=== PATIENT | female | born 1935 | race Caucasian/White ===

== ENCOUNTER 2017-09-25 17:48 | Inpatient (IN) | payer MEDICARE, OTHER, MEDICAID ==
--- NOTE | 2017-09-25 18:43 | ED Physician Chart ---
ED Chief Complaint/HPI - Patient Information Date Seen:: 09/25/17 Time Seen:: 17:55 Chief Complaint:: Weakness History of Present Illness:: onset x 2 days of generalized weakness with abnormal lab tests reported today; no report of trauma, H/As, S/T, neck pain, C/P, SOB, Abd. Pain, A/N/V/D/C, fever , chills, or urinary s/s Allergies:: Allergies Allergy/AdvReac Type Severity Reaction Status Date / Time No Known Allergies Allergy Verified 09/25/17 17:56 Vitals:: Vital Signs - 8 hr 09/25/17 17:57 Temp 98.8 F HR 74 RR 21 BP 145/97 O2 Sat % 97 Historian:: Patient, EMS, Family Member Review:: Nurse's Note Reviewed, Old Chart Reviewed, EMS run form Reviewed ED Review of Systems - Review of Systems General/Constitutional: No fever, No chills, No weight loss, No weakness, No diaphoresis, No edema, No loss of appetite Skin: No skin lesions, No rash, No bruising Head: No headache, No light-headedness Eyes: No loss of vision, No pain, No diplopia ENT: No earache, No nasal drainage, No sore throat, No tinnitus Neck: No neck pain, No swelling, No thyromegaly, No stiffness, No mass noted Cardio Vascular: No chest pain, No palpitations, No PND, No orthopnea, No edema Pulmonary: No SOB, No cough, No sputum, No wheezing GI: Nausea, Vomiting, Diarrhea, No pain, Melena, No hematochezia, No constipation, No hematemesis G/U: No dysuria, No frequency, No hematuria, No nacturia Structural Engineer: No vaginal discharge, No abnormal vaginal bleed, No contraction Musculoskeletal: No bone or joint pain, No back pain, No muscle pain Endocrine: No polyuria, No polydipsia Psychiatric: Prior psych history, Depression, Anxiety, No suicidal ideation, No homicidal ideation, No auditory hallucination, No visual hallucination Hematopoietic: No bruising, No lymphadenopathy Allergic/Immuno: No urticaria, No angioedema Neurological: No syncope, No focal symptoms, No weakness, No paresthesia, No headache, No seizure, No dizziness, No confusion, No vertigo ED Past Medical History - Past Medical History Obtainable: Yes Past Medical History: HTN, CAD, CHF, Dyslipidemia, PUD/GERD, ESRD, Arthritis Family History: Heart disease, Diabetes Melitus, HTN Social History: Non Smoker, No Alcohol, No Drug Use, , Care Facility Surgical History: other (Knee Joint Replacements) Psychiatricy History: Depression, Bipolar Medication: Reviewed ED Physical Exam - Physical Examination General/Constitutional: Awake, Well-developed, well-nourished, Alert, No distress, GCS 15, Non-toxic appearing, Ambulatory Head: Atraumatic Eyes: Lids, conjuctiva normal, PERRL, EOMI Skin: Nl inspection, No rash, No skin lesions, No ecchymosis, Well hydrated, No lymphadenopathy ENMT: External ears, nose nl, TM canals nl, Nasal exam nl, Lips, teeth, gums nl , Oropharynx nl, Tonsils nl Neck: Nontender, Full ROM w/o pain, No JVD, No nuchal rigidity, No bruit, No mass, No stridor Respiratory: Nl effort/Exclusion, Clear to Auscultation, No Wheeze/Rhonchi/Rales Cardio Vascular: RRR, No murmur, gallop, rubs, NL S1 S2, Carotid/Femoral/Distal pulses equal bilaterally GI: No tenderness/rebounding/guarding, No organomegaly, No hernia, Normal BS's, Nondistended, No mass/bruits, No McBurney tenderness : No CVA tenderness Extremities: No tenderness or effusion, Full ROM, normal strength in all extremities, No edema, Normal digits & nails Neuro/Psych: Alert/oriented, DTR's symmetric, Normal sensory exam, Normal motor strength, Judgement/insight normal, Mood normal, Normal gait, No focal deficits Misc: Normal back, No paraspinal tenderness ED Septic Shock - . Is Septic Shock (SBP<90, OR Lactate>4 mmol\L) present?: No - <6hrs of presentation: Vital Signs: Vital Signs - 8 hr 09/25/17 17:57 Temp 98.8 F HR 74 RR 21 BP 145/97 O2 Sat % 97
[2017-09-25 19:04] LABS: % BASOPHILS 0.7 % (0.0-2.0); % EOSINOPHILS 8.5 % (0.0-5.0); % LYMPHOCYTES 26.4 % (20.0-50.0); % MONOCYTES 9.3 % (2.0-10.0); % NEUTROPHILS 55.1 % (40.0-80.0); BASOPHILE ABSOLUTE 0.1 Th/cumm (0-0.2); EOSINOPHILE ABSOLUTE 0.7 Th/cmm (0.1-0.4); HEMATOCRIT 25.2 % (41.0-60); HEMOGLOBIN 8.7 gm/dL (12-16); LYMPHOCYTE ABSOLUTE 2.1 Th/cmm (1.5-3.0); MEAN CELL VOLUME 93.6 fl (81-100); MEAN CORPUSCULAR HEMOGLOBIN 32.2 pg (27.0-31.0); MEAN CORPUSCULAR HGB CONC 34.4 pg (28.0-36.0); MEAN PLATELET VOLUME 7.2 fl; MONOCYTE ABSOLUTE 0.8 Th/cmm (0.3-1.0); NEUTROPHILE ABSOLUTE 4.4 Th/cmm (1.8-8.0); PLATELET COUNT 270 Th/cmm (150-400); RED BLOOD COUNT 2.69 Mil/cmm (3.80-5.20); WHITE BLOOD COUNT 8.1 Th/cmm (4.8-10.8)
[2017-09-25 19:19] LABS: INR 1.01 (0.5-1.4); PROTHROMBIN TIME (TEST) 10.5 SECONDS (9.5-11.5)
[2017-09-25 19:21] LABS: ALB/GLOB RATIO 1.2 (1.0-1.8); ALBUMIN 3.8 gm/dL (3.7-5.3); ALKALINE PHOSPHATASE 46 U/L (34-104); ANION GAP 11.4 (7.0-16.0); BILIRUBIN,TOTAL 0.3 mg/dL (0.3-1.0); BUN - UREA NITROGEN 52 mg/dL (7-25); CALCIUM SERUM 9.7 mg/dL (8.6-10.3); CARBON DIOXIDE 21.7 mEq/L (21.0-31.0); CHLORIDE 109 mEq/L (98-107); CHOLESTEROL 71 mg/dL (<200); CREATININE - SERUM 3.6 mg/dL (0.6-1.2); CREATININE KINASE 47 U/L (30-223); GLUCOSE 106 mg/dL (70-105); HDL -HIGH DENSITY LIPOPROTEIN 29 mg/dL (23-92); POTASSIUM SERUM 4.1 mEq/L (3.5-5.1); SGOT 11 U/L (13-39); SGPT/ALT 8 U/L (7-52); SODIUM SERUM 138 mEq/L (136-145); TRIGLYCERIDES 90 mg/dL (<150)
[2017-09-25] MEDS ORDERED: Potassium Chloride 20 mEq ER Tab PO PRN (20:52)
[2017-09-25] MEDS ORDERED: Potassium Chloride 40 MEQ, Lidocaine 1% 20mL Vial 25 MG in Sodium Chloride 0.9% 250 ML IV PRN (20:52)
[2017-09-25] MEDS ORDERED: Mag Sulfate 2gm/50mL Premix 2 GM/50 ML BAG IV PRN (20:52)
[2017-09-25] MEDS ORDERED: Sodium Chloride 0.9% 1,000 ML IV SCH (21:00)
[2017-09-25 21:20] LABS: MAGNESIUM 2.2 mg/dL (1.9-2.7); PHOSPHOROUS 4.3 mg/dL (2.5-5.0)
[2017-09-26] MEDS ORDERED: Pneumococcal Vaccine 0.5 mL Vial IM ONE (00:30)
[2017-09-26 07:22] LABS: % BASOPHILS 1.1 % (0.0-2.0); % EOSINOPHILS 10.1 % (0.0-5.0); % LYMPHOCYTES 25.4 % (20.0-50.0); % MONOCYTES 10.4 % (2.0-10.0); BASOPHILE ABSOLUTE 0.1 Th/cumm (0-0.2); EOSINOPHILE ABSOLUTE 0.8 Th/cmm (0.1-0.4); HEMATOCRIT 24.5 % (41.0-60); HEMOGLOBIN 8.4 gm/dL (12-16); MEAN CELL VOLUME 94.6 fl (81-100); MEAN CORPUSCULAR HEMOGLOBIN 32.3 pg (27.0-31.0); MEAN CORPUSCULAR HGB CONC 34.2 pg (28.0-36.0); MEAN PLATELET VOLUME 7.7 fl; MONOCYTE ABSOLUTE 0.8 Th/cmm (0.3-1.0); NEUTROPHILE ABSOLUTE 4.3 Th/cmm (1.8-8.0); PLATELET COUNT 254 Th/cmm (150-400); RED BLOOD COUNT 2.59 Mil/cmm (3.80-5.20); RED CELL DISTRIBUTION WIDTH 12.9 % (11.5-20.0)
[2017-09-26 07:37] LABS: ANION GAP 12.7 (7.0-16.0); BUN - UREA NITROGEN 48 mg/dL (7-25); CALCIUM SERUM 9.8 mg/dL (8.6-10.3); CARBON DIOXIDE 21.2 mEq/L (21.0-31.0); CHLORIDE 107 mEq/L (98-107); CREATININE - SERUM 3.6 mg/dL (0.6-1.2); GLUCOSE 86 mg/dL (70-105); POTASSIUM SERUM 3.9 mEq/L (3.5-5.1); SODIUM SERUM 137 mEq/L (136-145)
[2017-09-26 08:10] LABS: IRON LC 47 ug/dL (27-139); TIBC (LC) 228 ug/dL (250-450); UIBC 181 ug/dL (118-369)
--- NOTE | 2017-09-26 08:12 | Diagnostic Imaging Report ---
Renal ultrasound HISTORY: Abnormal renal function test The right kidney is normal in size for age (9.1 x 4.5 x 4.5 cm). Questionable subcentimeter cyst. No hydronephrosis. There is suboptimal delineation of the margins of the left kidney. However, this appears to be slightly decreased in size (8.2 x 4.9 x 4.5 cm). No definite focal lesions. No hydronephrosis. No intraluminal abnormality seen within the urinary bladder. IMPRESSION: 1. Somewhat limited exam 2. No hydronephrosis 3. Slight decrease in size of the left kidney 4. Subcentimeter right renal cysts
--- NOTE | 2017-09-26 08:12 | Diagnostic Imaging Report ---
Portable chest x-ray HISTORY: Shortness of breath The heart is enlarged. There is elevation of the left hemidiaphragm. No acute focal pulmonary processes. Atherosclerotic calcification seen in the aorta. No other hilar or mediastinal abnormalities. IMPRESSION: 1. No definite acute abnormalities 2. Elevation of the left hemidiaphragm
--- NOTE | 2017-09-26 11:09 | History & Physical ---
ADMIT DATE: 09/26/2017 CHIEF COMPLAINT: Weak and renal failure. HISTORY OF PRESENT ILLNESS: The patient is a 81-year-old female who is a patient of mine at [facility]. She has history of anemia, renal insufficiency, and neuropathic pain. Yesterday, routine labs showed her renal function worsened and she was feeling much worse as well as she was feeling weaker than usual. She was sent to the hospital for acute renal failure. PAST MEDICAL HISTORY: Significant for anemia, hypertension, Alzheimer's dementia, neuropathy, mood disorder, and dyslipidemia. SOCIAL HISTORY: No history of alcohol, tobacco, or drug abuse. She lives in [facility]. SURGICAL HISTORY: No recent major surgeries. FAMILY HISTORY: Noncontributory. ALLERGIES: No known drug allergies. MEDICATIONS: All medication reviewed and reconciled. REVIEW OF SYSTEMS: GENERAL: Positive recent fatigue and decreased appetite. HEENT: No recent head trauma or change in vision, taste, hearing, or smell. Oral: No recent pain or discharge. NECK: No recent tracheal deviation. ABDOMEN: No recent pain or discharge. SKIN: No recent rashes. PSYCHIATRIC: She does have a history of mood disorder. She is on Seroquel. NEPHROLOGY: She does have history of renal insufficiency. She has seen nephrology in the past. MUSCULOSKELETAL: Positive history of unsteady gait. PHYSICAL EXAMINATION: VITAL SIGNS: Temperature 97.2 degrees, heart rate is 71, respiration is 18, blood pressure 130/58. Currently, no pain. GENERAL: No acute distress, awake, pleasant, but confused. HEENT: No acute issues. NECK: Trachea is midline. CARDIOVASCULAR: Regular rate and rhythm. SKIN: No rashes. PSYCHIATRIC: No psychosis or hallucination. NEUROLOGIC: Stable. MUSCULOSKELETAL: Decreased muscle strength in lower extremities. LABORATORY DATA: Sodium 138, potassium 4.1, chloride 109, bicarbonate 21.7, BUN 52, creatinine 3.6, glucose 106, TIBC 228. Renal ultrasound does not show any acute abnormalities. White count is 8; hemoglobin is 8.4; platelet count is 254,000. ASSESSMENT: 1. Vasomotor nephropathy. 2. Anemia of chronic illness. 3. Dementia, Alzheimer's type. 4. Hypertension. 5. Metabolic encephalopathy. 6. Neuropathic pain. 7. Dyslipidemia. 8. Peripheral arterial disease. PLAN: The patient has history of taking neomycin. I will check ammonia level and hold it for now. Continue IV fluids. Renal function is significantly abnormal. Nephrology has been consulted. Renal ultrasound has been done. Chest x-ray has been reviewed. Followup on chemistry panel. Follow up on UA as well. JOB# [id number]
[2017-09-26 13:17] LABS: URINE MICROSCOPIC INDICATED? YES; URINE SOURCE CATH
[2017-09-26 13:19] LABS: URINE BILIRUBIN NEGATIVE (NEGATIVE); URINE BLOOD TRACE (NEGATIVE); URINE GLUCOSE (UA) NEGATIVE (NEGATIVE); URINE KETONE NEGATIVE (NEGATIVE); URINE LEUKOCYTE ESTERASE NEGATIVE (NEGATIVE); URINE NITRATE NEGATIVE (NEGATIVE); URINE PROTEIN 100 mg/dL (NEGATIVE); URINE UROBILINOGEN 0.2 E.U./dL (0.2 - 1.0)
[2017-09-26 13:29] LABS: URINE CLARITY CLEAR (CLEAR); URINE COLOR YELLOW
[2017-09-26 13:30] LABS: URINE BACTERIA OCCASIONAL /hpf (NONE SEEN); URINE EPITHELIAL CELLS RARE /lpf (FEW); URINE RBC 0-2 /hpf (0-5); URINE WBC 0-2 /hpf (0-5)
[2017-09-26 15:33] VITALS: BP 126/97
[2017-09-26 17:32] LABS: A1C % 4.7 % (4.0-6.0)
--- NOTE | 2017-09-26 19:08 | Consultation ---
Consult Note - Consult Note Service Date: 09/26/17 Referring Physician: Ivanna Burrell Consult Note: PHYSICIAN Consultation Note: Date of Admission: 09/25/17 Purpose of Consultation: DIANA/CKD Chief Complaint: FURTHER EVALUATION OF ELEVATED CREATININE History of Present Illness: Patient LUIS DANIEL CHAND was admitted to [facility] with ACUTE RENAL FAILURE. Past Medical History: CKD HTN HYPOTHYROIDISM ALZHEIMER'S DEMENTIA ANEMIA PAST SURGICAL HISTORY: Patient states she cannot recall Diagnoses ANEMIA, UNSPECIFIED (09/25/17) HYPERLIPIDEMIA, UNSPECIFIED (09/25/17) DEMENTIA IN OTH DISEASES CLASSD ELSWHR W/O BEHAVRL DISTURB (09/25/17) ALZHEIMER'S DISEASE, UNSPECIFIED (09/25/17) METABOLIC ENCEPHALOPATHY (09/25/17) ESSENTIAL (PRIMARY) HYPERTENSION (09/25/17) PERIPHERAL VASCULAR DISEASE, UNSPECIFIED (09/25/17) ACUTE KIDNEY FAILURE WITH TUBULAR NECROSIS (09/25/17) DO NOT RESUSCITATE (09/25/17) Allergies Allergy/AdvReac Type Severity Reaction Status Date / Time No Known Allergies Allergy Verified 09/25/17 17:56 Vital Signs Temp 97.6 F 09/26/17 16:00 Pulse 65 09/26/17 18:43 Resp 17 09/26/17 16:00 BP 125/58 09/26/17 18:43 Pulse Ox 97 09/26/17 15:42 Intake & Output 09/26/17 09/26/17 09/27/17 06:59 18:59 06:59 Intake Total 500 800 Balance 500 800 Weight (lbs) 64.047 kg 64.047 kg Intake: Oral 500 800 Other: # Voids 1 2 # Bowel Movements 0 1 Laboratory Results - last 24 hr 09/26/17 09/26/17 09/26/17 06:43 06:43 10:40 WBC 8.0 RBC 2.59 L Hgb 8.4 L Hct 24.5 L MCV 94.6 MCH 32.3 H MCHC Differential 34.2 RDW 12.9 Plt Count 254 MPV 7.7 Neutrophils % 53.0 Lymphocytes % 25.4 Monocytes % 10.4 H Eosinophils % 10.1 H Basophils % 1.1 Sodium 137 Potassium 3.9 Chloride 107 Carbon Dioxide 21.2 Anion Gap 12.7 BUN 48 H Creatinine 3.6 H Est GFR ( Amer) TNP Est GFR (Non-Af Amer) TNP BUN/Creatinine Ratio 13.3 Glucose 86 Calcium 9.8 Ammonia 51 Urine Source Urine Color Urine Clarity Urine pH Ur Specific [place] Urine Protein Urine Glucose (UA) Urine Ketones Urine Blood Urine Nitrate Urine Bilirubin Urine Urobilinogen Ur Leukocyte Esterase Urine RBC Urine WBC Ur Epithelial Cells Urine Bacteria 09/26/17 12:53 WBC RBC Hgb Hct MCV MCH MCHC Differential RDW Plt Count MPV Neutrophils % Lymphocytes % Monocytes % Eosinophils % Basophils % Sodium Potassium Chloride Carbon Dioxide Anion Gap BUN Creatinine Est GFR ( Amer) Est GFR (Non-Af Amer) BUN/Creatinine Ratio Glucose Calcium Ammonia Urine Source CATH Urine Color YELLOW Urine Clarity CLEAR Urine pH 7.0 Ur Specific [place] 1.010 Urine Protein 100 H Urine Glucose (UA) NEGATIVE Urine Ketones NEGATIVE Urine Blood TRACE Urine Nitrate NEGATIVE Urine Bilirubin NEGATIVE Urine Urobilinogen 0.2 Ur Leukocyte Esterase NEGATIVE Urine RBC 0-2 Urine WBC 0-2 Ur Epithelial Cells RARE Urine Bacteria OCCASIONAL Home Medication Medication Instructions Recorded Type Acetaminophen [8 Hour] 650 mg PO Q4H PRN 09/25/17 History Acetaminophen [Acetaminophen Extra 1,000 mg PO Q4H PRN 09/25/17 History Strength] Acetaminophen [Acetaminophen Extra 500 mg PO Q4H PRN 09/25/17 History Strength] Acetaminophen [Tylenol Extra 500 mg PO BID 09/25/17 History Strength] Amlodipine Besylate 10 mg PO DAILY 09/25/17 History Bisacodyl [Dulcolax 10 Mg Supp] 10 mg RC DAILY PRN 09/25/17 History Docusate Sodium [Colace] 100 mg PO DAILY 09/25/17 History Duloxetine HCl [Cymbalta] 30 mg PO DAILY 09/25/17 History Famotidine [Pepcid] 20 mg PO BID 09/25/17 History Ferrous Sulfate [Iron] 1 cap PO BID 09/25/17 History Fleet Enema [Fleet Enema] 135 ml RC DAILY PRN 09/25/17 History Furosemide [Lasix] 20 mg PO DAILY 09/25/17 History Gabapentin 100 mg PO TID 09/25/17 History Lactulose 30 gm PO TID 09/25/17 History Magnesium Hydroxide [Milk of 30 ml PO DAILY PRN 09/25/17 History Magnesia] Metoprolol Tartrate [Lopressor] 25 mg PO BID 09/25/17 History Multivitamin w/ Minerals 1 tab PO DAILY 09/25/17 History [Theragran M] Neomycin Sulfate [Neomycin] 500 mg PO TID 09/25/17 History Pentoxifylline 400 mg PO DAILY 09/25/17 History Polyethylene Glycol 3350 [Glycolax] 17 gm PO DAILY 09/25/17 History QUEtiapine Fumarate [SEROquel] 25 mg PO HS 09/25/17 History Simvastatin [Zocor*] 20 mg PO HS 09/25/17 History Current Medications Generic Name Dose Route Start Last Admin Trade Name Freq PRN Reason Stop Dose Admin Acetaminophen 650 mg 09/25/17 20:52 09/26/17 10:06 Tylenol PO 11/24/17 20:51 650 mg Q6H PRN Administration HEADACHE/TEMP ABOVE 100F Amlodipine Besylate 10 mg 09/26/17 09:00 09/26/17 09:52 Norvasc PO 11/25/17 08:59 Not Given DAILY YAMILETH Docusate Sodium 100 mg 09/26/17 09:00 09/26/17 09:52 Colace PO 11/25/17 08:59 100 mg DAILY YAMILETH Administration Duloxetine HCl 30 mg 09/26/17 09:00 Cymbalta PO 11/25/17 08:59 DAILY YAMILETH Protocol Gabapentin 100 mg 09/25/17 21:00 09/26/17 14:40 Neurontin PO 11/24/17 20:59 100 mg TID YAMILETH Administration Heparin Sodium (Porcine) 5,000 units 09/25/17 21:00 09/26/17 09:55 Heparin SUBQ 11/24/17 20:59 5,000 units Q12HR YAMILETH Administration Potassium Chloride 40 meq/ 272.5 mls @ 68 mls/hr 09/25/17 20:52 Lidocaine HCl 25 mg/ Sodium IV 11/24/17 20:51 Chloride DAILY PRN k level less than 3.2 Magnesium Sulfate 2 gm in 50 mls @ 25 mls/hr 09/25/17 20:52 Magnesium Sulfate Premix IV 11/24/17 20:51 DAILY PRN Magnesium level less than 1.6 Sodium Chloride 1,000 mls @ 75 mls/hr 09/25/17 21:00 09/26/17 00:48 Nacl 0.9% IV 11/24/17 20:59 75 mls/hr .[id number] YAMILETH Administration Lorazepam 1 mg 09/25/17 20:52 Ativan IVP 11/24/17 20:51 Q4HR PRN Anxiety Protocol Magnesium Oxide 400 mg 09/25/17 20:52 Mag-Oxide PO 11/24/17 20:51 BID PRN Mg less than 1.9 Metoprolol Tartrate 25 mg 09/26/17 09:00 09/26/17 18:43 Lopressor PO 11/25/17 08:59 25 mg BID YAMILETH Administration Ondansetron HCl 4 mg 09/25/17 20:52 09/26/17 01:15 Zofran IVP 11/24/17 20:51 4 mg Q6H PRN Administration Nausea / Vomiting Potassium Chloride 40 meq 09/25/17 20:52 Klor-Con PO 11/24/17 20:51 DAILY PRN k level less than 3.5 Quetiapine Fumarate 25 mg 09/25/17 21:00 Seroquel PO 11/24/17 20:59 HS YAMILETH Protocol Simvastatin 20 mg 09/25/17 21:00 09/26/17 00:49 Zocor PO 11/24/17 20:59 20 mg HS YAMILETH Administration Protocol Review of Systems: A 12 point ROS was reviewed with the pertinent positive and negatives noted in the HPI. 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 NON-OLGURIC DIANA/CKD vs PROGRESSION OF CKD. DIANA LIKELY PRE-RENAL IN ETIOLOGY, CKD LIKELY STAGE 3 DUE TO HYPERTENSIVE NEPHROSCLEROSIS -given concurrent anemia and age, would also like to rule out myeloma. Send serum and urine immunofixation. -send urine lytes and obtain renal ultrasound -no acute indication for renal replacement therapy at this time. 2. ANEMIA OF CKD, stable -given low iron saturation, start IV iron -check stool OB -r/o myeloma as above 3. HTN, stable -cont current regimen of amlodipine, metoprolol 4. Neuropathic pain, stable -cont neurontin, cymbalta 5. Electrolyte abnormalities, stable -cont PO repletion and monitor Plan: SEE ABOVE. THANK YOU DR. BURRELL. PLAN OF CARE D/W PATIENT Signed, Tami Andrew M.D. [id number]
[2017-09-26] MEDS ORDERED: SODIUM FERRIC GLUCONATE IV ONE (19:10)
[2017-09-26] MEDS ORDERED: SODIUM CHLORIDE 0.9% IV ONE (19:10)
[2017-09-26] MEDS ORDERED: Sodium Ferric Gluconate 125 MG in Sodium Chloride 0.9% 100 ML IV SCH (19:15)
[2017-09-27 07:24] LABS: % BASOPHILS 0.6 % (0.0-2.0); % EOSINOPHILS 13.2 % (0.0-5.0); % LYMPHOCYTES 31.6 % (20.0-50.0); % MONOCYTES 7.8 % (2.0-10.0); % NEUTROPHILS 46.8 % (40.0-80.0); HEMATOCRIT 26.1 % (41.0-60); HEMOGLOBIN 8.8 gm/dL (12-16); LYMPHOCYTE ABSOLUTE 2.5 Th/cmm (1.5-3.0); MEAN CORPUSCULAR HGB CONC 33.7 pg (28.0-36.0); MEAN PLATELET VOLUME 7.6 fl; MONOCYTE ABSOLUTE 0.6 Th/cmm (0.3-1.0); NEUTROPHILE ABSOLUTE 3.7 Th/cmm (1.8-8.0); PLATELET COUNT 275 Th/cmm (150-400); RED BLOOD COUNT 2.75 Mil/cmm (3.80-5.20); RED CELL DISTRIBUTION WIDTH 13.2 % (11.5-20.0); WHITE BLOOD COUNT 7.8 Th/cmm (4.8-10.8)
[2017-09-27 08:52] LABS: ANION GAP 6.9 (7.0-16.0); BUN - UREA NITROGEN 42 mg/dL (7-25); CALCIUM SERUM 9.2 mg/dL (8.6-10.3); CARBON DIOXIDE 21.7 mEq/L (21.0-31.0); CHLORIDE 108 mEq/L (98-107); CREATININE - SERUM 3.3 mg/dL (0.6-1.2); GLUCOSE 80 mg/dL (70-105); POTASSIUM SERUM 3.6 mEq/L (3.5-5.1); SODIUM SERUM 133 mEq/L (136-145)
--- NOTE | 2017-09-27 09:28 | General Progress Note ---
Subjective - Review of Systems Service Date: 09/27/17 Subjective: Pt seen and eval. In bed. More alert today. No fevers or chills. No n,v,d or cp. No falls or sz. On iv fluids. Renal US done. Dr. Andrew following. No fevers. No dysuria. No NICKERSON or sz. Objective - Results Result Diagrams: 09/27/17 07:11 09/27/17 07:45 Recent Labs: Laboratory Last Values WBC 7.8 Th/cmm (4.8-10.8) 09/27/17 07:11 RBC 2.75 Mil/cmm (3.80-5.20) L 09/27/17 07:11 Hgb 8.8 gm/dL (12-16) L 09/27/17 07:11 Hct 26.1 % (41.0-60) L 09/27/17 07:11 MCV 95.0 fl (81-100) 09/27/17 07:11 MCH 32.0 pg (27.0-31.0) H 09/27/17 07:11 MCHC Differential 33.7 pg (28.0-36.0) 09/27/17 07:11 RDW 13.2 % (11.5-20.0) 09/27/17 07:11 Plt Count 275 Th/cmm (150-400) 09/27/17 07:11 MPV 7.6 fl 09/27/17 07:11 Neutrophils % 46.8 % (40.0-80.0) 09/27/17 07:11 Lymphocytes % 31.6 % (20.0-50.0) 09/27/17 07:11 Monocytes % 7.8 % (2.0-10.0) 09/27/17 07:11 Eosinophils % 13.2 % (0.0-5.0) H 09/27/17 07:11 Basophils % 0.6 % (0.0-2.0) 09/27/17 07:11 PT 10.5 SECONDS (9.5-11.5) 09/25/17 18:58 INR 1.01 (0.5-1.4) 09/25/17 18:58 Sodium 133 mEq/L (136-145) L 09/27/17 07:45 Potassium 3.6 mEq/L (3.5-5.1) 09/27/17 07:45 Chloride 108 mEq/L (98-107) H 09/27/17 07:45 Carbon Dioxide 21.7 mEq/L (21.0-31.0) 09/27/17 07:45 Anion Gap 6.9 (7.0-16.0) L 09/27/17 07:45 BUN 42 mg/dL (7-25) H 09/27/17 07:45 Creatinine 3.3 mg/dL (0.6-1.2) H 09/27/17 07:45 Est GFR ( Amer) TNP 09/27/17 07:45 Est GFR (Non-Af Amer) TNP 09/27/17 07:45 BUN/Creatinine Ratio 12.7 09/27/17 07:45 Glucose 80 mg/dL (70-105) 09/27/17 07:45 Hemoglobin A1c % 4.7 % (4.0-6.0) 09/25/17 18:58 Calcium 9.2 mg/dL (8.6-10.3) 09/27/17 07:45 Phosphorus 4.3 mg/dL (2.5-5.0) 09/25/17 18:58 Magnesium 2.2 mg/dL (1.9-2.7) 09/25/17 18:58 Iron 47 ug/dL (27-139) 09/25/17 18:58 TIBC 228 ug/dL (250-450) L 09/25/17 18:58 Iron Saturation 21 % (15-55) 09/25/17 18:58 Unsaturated IBC 181 ug/dL (118-369) 09/25/17 18:58 Ferritin 302 ng/mL (15-150) H 09/25/17 18:58 Total Bilirubin 0.3 mg/dL (0.3-1.0) 09/25/17 18:58 AST 11 U/L (13-39) L 09/25/17 18:58 ALT 8 U/L (7-52) 09/25/17 18:58 Alkaline Phosphatase 46 U/L (34-104) 09/25/17 18:58 Ammonia 51 umol/L (16-53) 09/26/17 10:40 Creatine Kinase 47 U/L (30-223) 09/25/17 18:58 Troponin I 0.01 ng/mL (0.01-0.05) 09/25/17 18:58 B-Natriuretic Peptide 111.0 pg/mL (5.0-100.0) H 09/25/17 18:58 Total Protein 7.0 gm/dL (6.0-8.3) 09/25/17 18:58 Albumin 3.8 gm/dL (3.7-5.3) 09/25/17 18:58 Globulin 3.2 gm/dL 09/25/17 18:58 Albumin/Globulin Ratio 1.2 (1.0-1.8) 09/25/17 18:58 Triglycerides 90 mg/dL (<150) 09/25/17 18:58 Cholesterol 71 mg/dL (<200) 09/25/17 18:58 LDL Cholesterol Direct 27 mg/dL (75-193) L 09/25/17 18:58 HDL Cholesterol 29 mg/dL (23-92) 09/25/17 18:58 Urine Source CATH 09/26/17 12:53 Urine Color YELLOW 09/26/17 12:53 Urine Clarity CLEAR (CLEAR) 09/26/17 12:53 Urine pH 7.0 (4.6 - 8.0) 09/26/17 12:53 Ur Specific [place] 1.010 (1.005-1.030) 09/26/17 12:53 Urine Protein 100 mg/dL (NEGATIVE) H 09/26/17 12:53 Urine Glucose (UA) NEGATIVE mg/dL (NEGATIVE) 09/26/17 12:53 Urine Ketones NEGATIVE mg/dL (NEGATIVE) 09/26/17 12:53 Urine Blood TRACE (NEGATIVE) 09/26/17 12:53 Urine Nitrate NEGATIVE (NEGATIVE) 09/26/17 12:53 Urine Bilirubin NEGATIVE (NEGATIVE) 09/26/17 12:53 Urine Urobilinogen 0.2 E.U./dL (0.2 - 1.0) 09/26/17 12:53 Ur Leukocyte Esterase NEGATIVE (NEGATIVE) 09/26/17 12:53 Urine RBC 0-2 /hpf (0-5) 09/26/17 12:53 Urine WBC 0-2 /hpf (0-5) 09/26/17 12:53 Ur Epithelial Cells RARE /lpf (FEW) 09/26/17 12:53 Urine Bacteria OCCASIONAL /hpf (NONE SEEN) 09/26/17 12:53 Ur Random Sodium 75 mmol/L 09/26/17 22:15 - Physical Exam Vitals and I&O: Vital Signs Temp 97 F 09/27/17 04:00 Pulse 66 09/27/17 08:27 Resp 18 09/27/17 04:00 BP 138/68 09/27/17 08:27 Pulse Ox 97 09/27/17 04:00 Intake & Output 09/26/17 09/27/17 09/27/17 18:59 06:59 18:59 Intake Total 800 650 Output Total 500 Balance 800 150 Weight (lbs) 64.047 kg 64.41 kg Intake: Oral 800 650 Output: Urine 500 Stool 0 Other: # Voids 2 5 # Bowel Movements 1 0 Active Medications: Current Medications Acetaminophen (Tylenol) 650 mg PO Q6H PRN PRN Reason: HEADACHE/TEMP ABOVE 100F Stop: 11/24/17 20:51 Last Admin: 09/27/17 02:37 Dose: 650 mg Amlodipine Besylate (Norvasc) 10 mg PO DAILY [facility] Stop: 11/25/17 08:59 Last Admin: 09/27/17 08:27 Dose: 10 mg Docusate Sodium (Colace) 100 mg PO DAILY [facility] Stop: 11/25/17 08:59 Last Admin: 09/27/17 08:27 Dose: 100 mg Duloxetine HCl (Cymbalta) 30 mg PO DAILY [facility] PRN Reason: Protocol Stop: 11/25/17 08:59 Gabapentin (Neurontin) 100 mg PO TID [facility] Stop: 11/24/17 20:59 Last Admin: 09/27/17 08:27 Dose: 100 mg Heparin Sodium (Porcine) (Heparin) 5,000 units SUBQ Q12HR [facility] Stop: 11/24/17 20:59 Last Admin: 09/27/17 08:26 Dose: Not Given Potassium Chloride 40 meq/Lidocaine HCl 25 mg/ Sodium Chloride 272.5 mls @ 68 mls/hr IV DAILY PRN PRN Reason: k level less than 3.2 Stop: 11/24/17 20:51 Magnesium Sulfate (Magnesium Sulfate Premix) 2 gm in 50 mls @ 25 mls/hr IV DAILY PRN PRN Reason: Magnesium level less than 1.6 Stop: 11/24/17 20:51 Sodium Chloride (Nacl 0.9%) 1,000 mls @ 75 mls/hr IV .[id number] [facility] Stop: 11/24/17 20:59 Last Admin: 09/26/17 00:48 Dose: 75 mls/hr Ferric Sodium Gluconate Complex 125 mg/ Sodium Chloride 110 mls @ 100 mls/hr IV Q24HR [facility] Stop: 10/02/17 19:14 Lorazepam (Ativan) 1 mg IVP Q4HR PRN; Protocol PRN Reason: Anxiety Stop: 11/24/17 20:51 Magnesium Oxide (Mag-Oxide) 400 mg PO BID PRN PRN Reason: Mg less than 1.9 Stop: 11/24/17 20:51 Metoprolol Tartrate (Lopressor) 25 mg PO BID [facility] Stop: 11/25/17 08:59 Last Admin: 09/27/17 08:27 Dose: 25 mg Ondansetron HCl (Zofran) 4 mg IVP Q6H PRN PRN Reason: Nausea / Vomiting Stop: 11/24/17 20:51 Last Admin: 09/26/17 01:15 Dose: 4 mg Potassium Chloride (Klor-Con) 40 meq PO DAILY PRN PRN Reason: k level less than 3.5 Stop: 11/24/17 20:51 Quetiapine Fumarate (Seroquel) 25 mg PO HS [facility] PRN Reason: Protocol Stop: 11/24/17 20:59 Simvastatin (Zocor) 20 mg PO HS [facility] PRN Reason: Protocol Stop: 11/24/17 20:59 Last Admin: 09/26/17 21:50 Dose: 20 mg General: Cooperative, No acute distress HEENT: Atraumatic, PERRLA Neck: Supple, no JVD Cardiovascular: Regular rate, Normal S1, Normal S2 Lungs: Clear to auscultation Abdomen: Bowel sounds, Soft Assessment/Plan - Problem List Patient Problems: All Active Problems ELEVATED BUN/CREAT; RENAL FAILURE (Acute) - Assessment Assessment: VMN Anemia of ch ill KITTY HTN ME Neuropathic pain Dyslipid PAD - Plan Plan: Pt is being seen by nephroDr Andrew. Her Cr is improving slowly. Renal US done. FU on rest of workup. bp stable. Meds and labs reviewed. Nutritional Asmnt/Malnutr-PDOC - Dietary Evaluation Malnutrition Findings (Please click <Entered> for more info): Nutritional Asmnt/Malnutrition Start: 09/26/17 14: 26 Text: Status: Complete Freq: Document 09/26/17 14:26 ARICConrad (Rec: 09/26/17 14:35 LCFEDERICA [email or web address]) Nutritional Asmnt/Malnutrition Patient General Information Nutritional Screening High Risk Consult Diagnosis acute renal failure Pertinent Medical Hx/Surgical Hx anemia, renal insuff, neuropathic pain, HTN, alzheimer's dementia, mood disorder, dyslipidemia Subjective Information Consult received for wounds. Pt seen sitting in bed at time of visit, awake and alert. Pt started with lunch and stated appetite ok. Food preference provided. Current Diet Order/ Nutrition Support Cardiac Pertinent Medications colace, seroquel, nacl 0.9%, simvastatin Pertinent Labs 09/26 BUN 48, Cr 3.6 Nutritional Hx/Data Height 1.57 m Height (Calculated Centimeters) 157.5 Current Weight (lbs) 63.957 kg Weight (Calculated Kilograms) 64.0 Weight (Calculated Grams) 56651.5 [place] Body Weight 110 Body Mass Index (BMI) 25.7 Weight Status Approriate GI Symptoms GI Symptoms None Last BM 0 Difficult in: None Skin Integrity/Comment: rash to vagina, bruise to right and left hand, pressure area to right buttocks Estimated Nutritional Goals BEE in Kcals: Using Current wt Calories/Kcals/Kg 25-30 Kcals Calculated 8978-0520 Protein: Using Current wt Protein g/k.8-1 Protein Calculated 51-64 watch renal labs Fluid: ml 1600-1920ml (1ml/kcal) Nutritional Problem 2. Problem Problem increased nutrition needs ( protein) Etiology increased metabolic demand for wounds Signs/Symptoms: pressure area to right buttocks 1. Problem Problem altered nutrition related lab values Etiology acute renal failure Signs/Symptoms: BUN 48, Cr 3.6 Malnutrition Alert Protein-Calorie Malnutrition N/A Is there a minimum of two criteria No selected? Query Text:Check all the applicable criteria. A minimum of two criteria are recommended for diagnosis of either severe or non-severe malnutrition. Intervention/Recommendation Comments 1. Continue with current diet as ordered. Encouraged PO intake. Updated pt diet profile with research dietitian. 2. Monitor PO intake, wt, labs and skin integrity 3. F/U as high risk in 2-3 days, 09/28-09/29 Expected Outcomes/Goals Expected Outcomes/Goals 1. PO intake to meet at least 75% of nutritional needs. 2. Wt stability, skin to remain intact, labs to approach WNL.
[2017-09-27 12:13] LABS: IGA SERUM - IMMUNOGLOBULIN A 196 mg/dL (64-422); IGG - IMMUNOGLOBULIN G SERUM 1300 mg/dL (700-1600); IGM - IMMUNOGLOBULIN M SERUM 112 mg/dL (26-217)
[2017-09-27] MEDS: Sodium Ferric Gluconate 125 MG in Sodium Chloride 0.9% 100 ML IV SCH (14:35)
[2017-09-28 06:53] LABS: % BASOPHILS 1.1 % (0.0-2.0); % EOSINOPHILS 13.6 % (0.0-5.0); % LYMPHOCYTES 25.9 % (20.0-50.0); % MONOCYTES 8.9 % (2.0-10.0); % NEUTROPHILS 50.5 % (40.0-80.0); BASOPHILE ABSOLUTE 0.1 Th/cumm (0-0.2); EOSINOPHILE ABSOLUTE 1.1 Th/cmm (0.1-0.4); HEMATOCRIT 24.6 % (41.0-60); HEMOGLOBIN 8.2 gm/dL (12-16); MEAN CELL VOLUME 94.3 fl (81-100); MEAN CORPUSCULAR HEMOGLOBIN 31.5 pg (27.0-31.0); MEAN CORPUSCULAR HGB CONC 33.4 pg (28.0-36.0); MEAN PLATELET VOLUME 7.5 fl; MONOCYTE ABSOLUTE 0.7 Th/cmm (0.3-1.0); PLATELET COUNT 258 Th/cmm (150-400); RED BLOOD COUNT 2.61 Mil/cmm (3.80-5.20); WHITE BLOOD COUNT 7.9 Th/cmm (4.8-10.8)
[2017-09-28 07:13] LABS: ANION GAP 10.4 (7.0-16.0); BUN - UREA NITROGEN 35 mg/dL (7-25); CALCIUM SERUM 9.3 mg/dL (8.6-10.3); CARBON DIOXIDE 19.7 mEq/L (21.0-31.0); CHLORIDE 112 mEq/L (98-107); CREATININE - SERUM 3.2 mg/dL (0.6-1.2); GLUCOSE 78 mg/dL (70-105); POTASSIUM SERUM 4.1 mEq/L (3.5-5.1); SODIUM SERUM 138 mEq/L (136-145)
--- NOTE | 2017-09-28 10:12 | General Progress Note ---
Subjective - Review of Systems Service Date: 09/28/17 Subjective: Pt seen and eval. In bed. More alert today. No fevers or chills. No n,v,d or cp. No falls or sz. On iv fluids. Renal US done. Dr. Andrew following. No fevers. No dysuria. No NICKERSON or sz. Objective - Results Result Diagrams: 09/28/17 06:30 09/28/17 06:30 Recent Labs: Laboratory Last Values WBC 7.9 Th/cmm (4.8-10.8) 09/28/17 06:30 RBC 2.61 Mil/cmm (3.80-5.20) L 09/28/17 06:30 Hgb 8.2 gm/dL (12-16) L 09/28/17 06:30 Hct 24.6 % (41.0-60) L 09/28/17 06:30 MCV 94.3 fl (81-100) 09/28/17 06:30 MCH 31.5 pg (27.0-31.0) H 09/28/17 06:30 MCHC Differential 33.4 pg (28.0-36.0) 09/28/17 06:30 RDW 13.0 % (11.5-20.0) 09/28/17 06:30 Plt Count 258 Th/cmm (150-400) 09/28/17 06:30 MPV 7.5 fl 09/28/17 06:30 Neutrophils % 50.5 % (40.0-80.0) 09/28/17 06:30 Lymphocytes % 25.9 % (20.0-50.0) 09/28/17 06:30 Monocytes % 8.9 % (2.0-10.0) 09/28/17 06:30 Eosinophils % 13.6 % (0.0-5.0) H 09/28/17 06:30 Basophils % 1.1 % (0.0-2.0) 09/28/17 06:30 PT 10.5 SECONDS (9.5-11.5) 09/25/17 18:58 INR 1.01 (0.5-1.4) 09/25/17 18:58 Sodium 138 mEq/L (136-145) 09/28/17 06:30 Potassium 4.1 mEq/L (3.5-5.1) 09/28/17 06:30 Chloride 112 mEq/L (98-107) H 09/28/17 06:30 Carbon Dioxide 19.7 mEq/L (21.0-31.0) L 09/28/17 06:30 Anion Gap 10.4 (7.0-16.0) 09/28/17 06:30 BUN 35 mg/dL (7-25) H 09/28/17 06:30 Creatinine 3.2 mg/dL (0.6-1.2) H 09/28/17 06:30 Est GFR ( Amer) TNP 09/28/17 06:30 Est GFR (Non-Af Amer) TNP 09/28/17 06:30 BUN/Creatinine Ratio 10.9 09/28/17 06:30 Glucose 78 mg/dL (70-105) 09/28/17 06:30 Hemoglobin A1c % 4.7 % (4.0-6.0) 09/25/17 18:58 Calcium 9.3 mg/dL (8.6-10.3) 09/28/17 06:30 Phosphorus 4.3 mg/dL (2.5-5.0) 09/25/17 18:58 Magnesium 2.2 mg/dL (1.9-2.7) 09/25/17 18:58 Iron 47 ug/dL (27-139) 09/25/17 18:58 TIBC 228 ug/dL (250-450) L 09/25/17 18:58 Iron Saturation 21 % (15-55) 09/25/17 18:58 Unsaturated IBC 181 ug/dL (118-369) 09/25/17 18:58 Ferritin 302 ng/mL (15-150) H 09/25/17 18:58 Total Bilirubin 0.3 mg/dL (0.3-1.0) 09/25/17 18:58 AST 11 U/L (13-39) L 09/25/17 18:58 ALT 8 U/L (7-52) 09/25/17 18:58 Alkaline Phosphatase 46 U/L (34-104) 09/25/17 18:58 Ammonia 51 umol/L (16-53) 09/26/17 10:40 Creatine Kinase 47 U/L (30-223) 09/25/17 18:58 Troponin I 0.01 ng/mL (0.01-0.05) 09/25/17 18:58 B-Natriuretic Peptide 111.0 pg/mL (5.0-100.0) H 09/25/17 18:58 Total Protein 7.0 gm/dL (6.0-8.3) 09/25/17 18:58 Albumin 3.8 gm/dL (3.7-5.3) 09/25/17 18:58 Globulin 3.2 gm/dL 09/25/17 18:58 Albumin/Globulin Ratio 1.2 (1.0-1.8) 09/25/17 18:58 Triglycerides 90 mg/dL (<150) 09/25/17 18:58 Cholesterol 71 mg/dL (<200) 09/25/17 18:58 LDL Cholesterol Direct 27 mg/dL (75-193) L 09/25/17 18:58 HDL Cholesterol 29 mg/dL (23-92) 09/25/17 18:58 Urine Source CATH 09/26/17 12:53 Urine Color YELLOW 09/26/17 12:53 Urine Clarity CLEAR (CLEAR) 09/26/17 12:53 Urine pH 7.0 (4.6 - 8.0) 09/26/17 12:53 Ur Specific [place] 1.010 (1.005-1.030) 09/26/17 12:53 Urine Protein 100 mg/dL (NEGATIVE) H 09/26/17 12:53 Urine Glucose (UA) NEGATIVE mg/dL (NEGATIVE) 09/26/17 12:53 Urine Ketones NEGATIVE mg/dL (NEGATIVE) 09/26/17 12:53 Urine Blood TRACE (NEGATIVE) 09/26/17 12:53 Urine Nitrate NEGATIVE (NEGATIVE) 09/26/17 12:53 Urine Bilirubin NEGATIVE (NEGATIVE) 09/26/17 12:53 Urine Urobilinogen 0.2 E.U./dL (0.2 - 1.0) 09/26/17 12:53 Ur Leukocyte Esterase NEGATIVE (NEGATIVE) 09/26/17 12:53 Urine RBC 0-2 /hpf (0-5) 09/26/17 12:53 Urine WBC 0-2 /hpf (0-5) 09/26/17 12:53 Ur Epithelial Cells RARE /lpf (FEW) 09/26/17 12:53 Urine Bacteria OCCASIONAL /hpf (NONE SEEN) 09/26/17 12:53 Ur Random Sodium 75 mmol/L 09/26/17 22:15 Serum Immunofixation 112 mg/dL (26-217) 09/26/17 21:28 - Physical Exam Vitals and I&O: Vital Signs Temp 98.2 F 09/28/17 04:00 Pulse 69 09/28/17 04:00 Resp 20 09/28/17 04:00 BP 139/70 09/28/17 04:00 Pulse Ox 91 09/28/17 04:00 Intake & Output 09/27/17 09/28/17 09/28/17 18:59 06:59 18:59 Intake Total 590 300 Output Total 950 800 Balance -360 -500 Weight (lbs) 64.41 kg 64.319 kg Intake: Intake, IV Amount 110 Sodium Ferric Gluconate 110 125 mg In Sodium Chloride 0.9% 100 ml @ 110 mls/hr IV Q24H [facility] Rx#: [id number] Oral 480 300 Output: Urine 950 800 Active Medications: Current Medications Acetaminophen (Tylenol) 650 mg PO Q6H PRN PRN Reason: HEADACHE/TEMP ABOVE 100F Stop: 11/24/17 20:51 Last Admin: 09/27/17 02:37 Dose: 650 mg Amlodipine Besylate (Norvasc) 10 mg PO DAILY [facility] Stop: 11/25/17 08:59 Last Admin: 09/27/17 08:27 Dose: 10 mg Docusate Sodium (Colace) 100 mg PO DAILY [facility] Stop: 11/25/17 08:59 Last Admin: 09/27/17 08:27 Dose: 100 mg Duloxetine HCl (Cymbalta) 30 mg PO DAILY [facility] PRN Reason: Protocol Stop: 11/25/17 08:59 Gabapentin (Neurontin) 100 mg PO TID [facility] Stop: 11/24/17 20:59 Last Admin: 09/27/17 21:41 Dose: 100 mg Heparin Sodium (Porcine) (Heparin) 5,000 units SUBQ Q12HR [facility] Stop: 11/24/17 20:59 Last Admin: 09/27/17 21:41 Dose: 5,000 units Potassium Chloride 40 meq/Lidocaine HCl 25 mg/ Sodium Chloride 272.5 mls @ 68 mls/hr IV DAILY PRN PRN Reason: k level less than 3.2 Stop: 11/24/17 20:51 Magnesium Sulfate (Magnesium Sulfate Premix) 2 gm in 50 mls @ 25 mls/hr IV DAILY PRN PRN Reason: Magnesium level less than 1.6 Stop: 11/24/17 20:51 Sodium Chloride (Nacl 0.9%) 1,000 mls @ 75 mls/hr IV .[id number] [facility] Stop: 11/24/17 20:59 Last Admin: 09/26/17 00:48 Dose: 75 mls/hr Ferric Sodium Gluconate Complex 125 mg/ Sodium Chloride 110 mls @ 110 mls/hr IV Q24H [facility] Stop: 10/03/17 14:59 Last Infusion: 09/27/17 17:29 Dose: Infused Lorazepam (Ativan) 1 mg IVP Q4HR PRN; Protocol PRN Reason: Anxiety Stop: 11/24/17 20:51 Magnesium Oxide (Mag-Oxide) 400 mg PO BID PRN PRN Reason: Mg less than 1.9 Stop: 11/24/17 20:51 Metoprolol Tartrate (Lopressor) 25 mg PO BID [facility] Stop: 11/25/17 08:59 Last Admin: 09/27/17 17:28 Dose: Not Given Ondansetron HCl (Zofran) 4 mg IVP Q6H PRN PRN Reason: Nausea / Vomiting Stop: 11/24/17 20:51 Last Admin: 09/26/17 01:15 Dose: 4 mg Potassium Chloride (Klor-Con) 40 meq PO DAILY PRN PRN Reason: k level less than 3.5 Stop: 11/24/17 20:51 Quetiapine Fumarate (Seroquel) 25 mg PO [facility] PRN Reason: Protocol Stop: 11/24/17 20:59 Simvastatin (Zocor) 20 mg PO [facility] PRN Reason: Protocol Stop: 11/24/17 20:59 Last Admin: 09/27/17 21:41 Dose: 20 mg General: Cooperative, No acute distress HEENT: Atraumatic, PERRLA Neck: Supple, no JVD Cardiovascular: Regular rate, Normal S1, Normal S2 Lungs: Clear to auscultation Abdomen: Bowel sounds, Soft Assessment/Plan - Problem List Patient Problems: All Active Problems ELEVATED BUN/CREAT; RENAL FAILURE (Acute) - Assessment Assessment: N Anemia of ch ill KITTY HTN ME Neuropathic pain Dyslipid PAD - Plan Plan: Pt is being seen by nephro, Dr Andrew. Her Cr is improving slowly. Renal US done. FU on rest of workup. bp stable. Meds and labs reviewed. Nutritional Asmnt/Malnutr-PDOC - Dietary Evaluation Malnutrition Findings (Please click <Entered> for more info): Nutritional Asmnt/Malnutrition Start: 09/26/17 14: 26 Text: Status: Complete Freq: Document 09/26/17 14:26 [facility] (Rec: 09/26/17 14:35 [email or web address] Nutritional Asmnt/Malnutrition Patient General Information Nutritional Screening High Risk Consult Diagnosis acute renal failure Pertinent Medical Hx/Surgical Hx anemia, renal insuff, neuropathic pain, HTN, alzheimer's dementia, mood disorder, dyslipidemia Subjective Information Consult received for wounds. Pt seen sitting in bed at time of visit, awake and alert. Pt started with lunch and stated appetite ok. Food preference provided. Current Diet Order/ Nutrition Support Cardiac Pertinent Medications colace, seroquel, nacl 0.9%, simvastatin Pertinent Labs 09/26 BUN 48, Cr 3.6 Nutritional Hx/Data Height 1.57 m Height (Calculated Centimeters) 157.5 Current Weight (lbs) 63.957 kg Weight (Calculated Kilograms) 64.0 Weight (Calculated Grams) 56891.5 [place] Body Weight 110 Body Mass Index (BMI) 25.7 Weight Status Approriate GI Symptoms GI Symptoms None Last BM 0 Difficult in: None Skin Integrity/Comment: rash to vagina, bruise to right and left hand, pressure area to right buttocks Estimated Nutritional Goals BEE in Kcals: Using Current wt Calories/Kcals/Kg 25-30 Kcals Calculated 2435-3743 Protein: Using Current wt Protein g/k.8-1 Protein Calculated 51-64 watch renal labs Fluid: ml 1600-1920ml (1ml/kcal) Nutritional Problem 2. Problem Problem increased nutrition needs ( protein) Etiology increased metabolic demand for wounds Signs/Symptoms: pressure area to right buttocks 1. Problem Problem altered nutrition related lab values Etiology acute renal failure Signs/Symptoms: BUN 48, Cr 3.6 Malnutrition Alert Protein-Calorie Malnutrition N/A Is there a minimum of two criteria No selected? Query Text:Check all the applicable criteria. A minimum of two criteria are recommended for diagnosis of either severe or non-severe malnutrition. Intervention/Recommendation Comments 1. Continue with current diet as ordered. Encouraged PO intake. Updated pt diet profile with dietitian consultant. 2. Monitor PO intake, wt, labs and skin integrity 3. F/U as high risk in 2-3 days, 09/28-09/29 Expected Outcomes/Goals Expected Outcomes/Goals 1. PO intake to meet at least 75% of nutritional needs. 2. Wt stability, skin to remain intact, labs to approach WNL.
--- NOTE | 2017-09-28 13:01 | General Progress Note ---
Subjective - Review of Systems Service Date: 09/28/17 Events since last encounter: Doing well, she feels better. Objective - Results Result Diagrams: 09/28/17 06:30 09/28/17 06:30 Recent Labs: Laboratory Last Values WBC 7.9 Th/cmm (4.8-10.8) 09/28/17 06:30 RBC 2.61 Mil/cmm (3.80-5.20) L 09/28/17 06:30 Hgb 8.2 gm/dL (12-16) L 09/28/17 06:30 Hct 24.6 % (41.0-60) L 09/28/17 06:30 MCV 94.3 fl (81-100) 09/28/17 06:30 MCH 31.5 pg (27.0-31.0) H 09/28/17 06:30 MCHC Differential 33.4 pg (28.0-36.0) 09/28/17 06:30 RDW 13.0 % (11.5-20.0) 09/28/17 06:30 Plt Count 258 Th/cmm (150-400) 09/28/17 06:30 MPV 7.5 fl 09/28/17 06:30 Neutrophils % 50.5 % (40.0-80.0) 09/28/17 06:30 Lymphocytes % 25.9 % (20.0-50.0) 09/28/17 06:30 Monocytes % 8.9 % (2.0-10.0) 09/28/17 06:30 Eosinophils % 13.6 % (0.0-5.0) H 09/28/17 06:30 Basophils % 1.1 % (0.0-2.0) 09/28/17 06:30 PT 10.5 SECONDS (9.5-11.5) 09/25/17 18:58 INR 1.01 (0.5-1.4) 09/25/17 18:58 Sodium 138 mEq/L (136-145) 09/28/17 06:30 Potassium 4.1 mEq/L (3.5-5.1) 09/28/17 06:30 Chloride 112 mEq/L (98-107) H 09/28/17 06:30 Carbon Dioxide 19.7 mEq/L (21.0-31.0) L 09/28/17 06:30 Anion Gap 10.4 (7.0-16.0) 09/28/17 06:30 BUN 35 mg/dL (7-25) H 09/28/17 06:30 Creatinine 3.2 mg/dL (0.6-1.2) H 09/28/17 06:30 Est GFR ( Amer) TNP 09/28/17 06:30 Est GFR (Non-Af Amer) TNP 09/28/17 06:30 BUN/Creatinine Ratio 10.9 09/28/17 06:30 Glucose 78 mg/dL (70-105) 09/28/17 06:30 Hemoglobin A1c % 4.7 % (4.0-6.0) 09/25/17 18:58 Calcium 9.3 mg/dL (8.6-10.3) 09/28/17 06:30 Phosphorus 4.3 mg/dL (2.5-5.0) 09/25/17 18:58 Magnesium 2.2 mg/dL (1.9-2.7) 09/25/17 18:58 Iron 47 ug/dL (27-139) 09/25/17 18:58 TIBC 228 ug/dL (250-450) L 09/25/17 18:58 Iron Saturation 21 % (15-55) 09/25/17 18:58 Unsaturated IBC 181 ug/dL (118-369) 09/25/17 18:58 Ferritin 302 ng/mL (15-150) H 09/25/17 18:58 Total Bilirubin 0.3 mg/dL (0.3-1.0) 09/25/17 18:58 AST 11 U/L (13-39) L 09/25/17 18:58 ALT 8 U/L (7-52) 09/25/17 18:58 Alkaline Phosphatase 46 U/L (34-104) 09/25/17 18:58 Ammonia 51 umol/L (16-53) 09/26/17 10:40 Creatine Kinase 47 U/L (30-223) 09/25/17 18:58 Troponin I 0.01 ng/mL (0.01-0.05) 09/25/17 18:58 B-Natriuretic Peptide 111.0 pg/mL (5.0-100.0) H 09/25/17 18:58 Total Protein 7.0 gm/dL (6.0-8.3) 09/25/17 18:58 Albumin 3.8 gm/dL (3.7-5.3) 09/25/17 18:58 Globulin 3.2 gm/dL 09/25/17 18:58 Albumin/Globulin Ratio 1.2 (1.0-1.8) 09/25/17 18:58 Triglycerides 90 mg/dL (<150) 09/25/17 18:58 Cholesterol 71 mg/dL (<200) 09/25/17 18:58 LDL Cholesterol Direct 27 mg/dL (75-193) L 09/25/17 18:58 HDL Cholesterol 29 mg/dL (23-92) 09/25/17 18:58 Urine Source CATH 09/26/17 12:53 Urine Color YELLOW 09/26/17 12:53 Urine Clarity CLEAR (CLEAR) 09/26/17 12:53 Urine pH 7.0 (4.6 - 8.0) 09/26/17 12:53 Ur Specific [place] 1.010 (1.005-1.030) 09/26/17 12:53 Urine Protein 100 mg/dL (NEGATIVE) H 09/26/17 12:53 Urine Glucose (UA) NEGATIVE mg/dL (NEGATIVE) 09/26/17 12:53 Urine Ketones NEGATIVE mg/dL (NEGATIVE) 09/26/17 12:53 Urine Blood TRACE (NEGATIVE) 09/26/17 12:53 Urine Nitrate NEGATIVE (NEGATIVE) 09/26/17 12:53 Urine Bilirubin NEGATIVE (NEGATIVE) 09/26/17 12:53 Urine Urobilinogen 0.2 E.U./dL (0.2 - 1.0) 09/26/17 12:53 Ur Leukocyte Esterase NEGATIVE (NEGATIVE) 09/26/17 12:53 Urine RBC 0-2 /hpf (0-5) 09/26/17 12:53 Urine WBC 0-2 /hpf (0-5) 09/26/17 12:53 Ur Epithelial Cells RARE /lpf (FEW) 09/26/17 12:53 Urine Bacteria OCCASIONAL /hpf (NONE SEEN) 09/26/17 12:53 Ur Random Sodium 75 mmol/L 09/26/17 22:15 Serum Immunofixation 112 mg/dL (26-217) 09/26/17 21:28 - Physical Exam Vitals and I&O: Vital Signs Temp 97.5 F 09/28/17 08:00 Pulse 69 09/28/17 10:47 Resp 20 09/28/17 08:00 BP 129/75 09/28/17 10:47 Pulse Ox 96 09/28/17 08:00 Intake & Output 09/27/17 09/28/17 09/28/17 18:59 06:59 18:59 Intake Total 590 300 Output Total 950 800 Balance -360 -500 Weight (lbs) 64.41 kg 64.319 kg Intake: Intake, IV Amount 110 Sodium Ferric Gluconate 110 125 mg In Sodium Chloride 0.9% 100 ml @ 110 mls/hr IV Q24H [facility] Rx#: [id number] Oral 480 300 Output: Urine 950 800 Active Medications: Current Medications Acetaminophen (Tylenol) 650 mg PO Q6H PRN PRN Reason: HEADACHE/TEMP ABOVE 100F Stop: 11/24/17 20:51 Last Admin: 09/27/17 02:37 Dose: 650 mg Amlodipine Besylate (Norvasc) 10 mg PO DAILY [facility] Stop: 11/25/17 08:59 Last Admin: 09/28/17 10:45 Dose: 10 mg Docusate Sodium (Colace) 100 mg PO DAILY [facility] Stop: 11/25/17 08:59 Last Admin: 09/28/17 10:37 Dose: 100 mg Duloxetine HCl (Cymbalta) 30 mg PO DAILY [facility] PRN Reason: Protocol Stop: 11/25/17 08:59 Last Admin: 09/28/17 10:47 Dose: 30 mg Gabapentin (Neurontin) 100 mg PO TID [facility] Stop: 11/24/17 20:59 Last Admin: 09/28/17 10:37 Dose: 100 mg Heparin Sodium (Porcine) (Heparin) 5,000 units SUBQ Q12HR [facility] Stop: 11/24/17 20:59 Last Admin: 09/28/17 10:37 Dose: 5,000 units Potassium Chloride 40 meq/Lidocaine HCl 25 mg/ Sodium Chloride 272.5 mls @ 68 mls/hr IV DAILY PRN PRN Reason: k level less than 3.2 Stop: 11/24/17 20:51 Magnesium Sulfate (Magnesium Sulfate Premix) 2 gm in 50 mls @ 25 mls/hr IV DAILY PRN PRN Reason: Magnesium level less than 1.6 Stop: 11/24/17 20:51 Sodium Chloride (Nacl 0.9%) 1,000 mls @ 75 mls/hr IV .[id number] [facility] Stop: 11/24/17 20:59 Last Admin: 09/26/17 00:48 Dose: 75 mls/hr Ferric Sodium Gluconate Complex 125 mg/ Sodium Chloride 110 mls @ 110 mls/hr IV Q24H [facility] Stop: 10/03/17 14:59 Last Infusion: 09/27/17 17:29 Dose: Infused Lorazepam (Ativan) 1 mg IVP Q4HR PRN; Protocol PRN Reason: Anxiety Stop: 11/24/17 20:51 Magnesium Oxide (Mag-Oxide) 400 mg PO BID PRN PRN Reason: Mg less than 1.9 Stop: 11/24/17 20:51 Metoprolol Tartrate (Lopressor) 25 mg PO BID [facility] Stop: 11/25/17 08:59 Last Admin: 09/28/17 10:47 Dose: 25 mg Ondansetron HCl (Zofran) 4 mg IVP Q6H PRN PRN Reason: Nausea / Vomiting Stop: 11/24/17 20:51 Last Admin: 09/26/17 01:15 Dose: 4 mg Potassium Chloride (Klor-Con) 40 meq PO DAILY PRN PRN Reason: k level less than 3.5 Stop: 11/24/17 20:51 Quetiapine Fumarate (Seroquel) 25 mg PO [facility] PRN Reason: Protocol Stop: 11/24/17 20:59 Simvastatin (Zocor) 20 mg PO [facility] PRN Reason: Protocol Stop: 11/24/17 20:59 Last Admin: 09/27/17 21:41 Dose: 20 mg General: Alert, Cooperative, No acute distress HEENT: Atraumatic, PERRLA Neck: Supple, no JVD Cardiovascular: Regular rate, Normal S1, Normal S2 Lungs: Clear to auscultation Abdomen: Bowel sounds, Soft Assessment/Plan - Problem List Patient Problems: All Active Problems ELEVATED BUN/CREAT; RENAL FAILURE (Acute) - Assessment Assessment: 1. DIANA on CKD 3 2. Hypertension 3. Hyperlipidemia 4. Depression 5. Anemia of chronic disease 6. Metabolic Acidosis - Plan Plan: Renal function improving -Renal ultrasound suggestive of CKD -No requirement for [employer] at this time -Continue to monitor Hb, transfuse as needed. Start EPO Nutritional Asmnt/Malnutr-PDOC - Dietary Evaluation Malnutrition Findings (Please click <Entered> for more info): Nutritional Asmnt/Malnutrition Start: 09/26/17 14: 26 Text: Status: Complete Freq: Document 09/26/17 14:26 ARUN (Rec: 09/26/17 14:35 [email or web address] Nutritional Asmnt/Malnutrition Patient General Information Nutritional Screening High Risk Consult Diagnosis acute renal failure Pertinent Medical Hx/Surgical Hx anemia, renal insuff, neuropathic pain, HTN, alzheimer's dementia, mood disorder, dyslipidemia Subjective Information Consult received for wounds. Pt seen sitting in bed at time of visit, awake and alert. Pt started with lunch and stated appetite ok. Food preference provided. Current Diet Order/ Nutrition Support Cardiac Pertinent Medications colace, seroquel, nacl 0.9%, simvastatin Pertinent Labs 09/26 BUN 48, Cr 3.6 Nutritional Hx/Data Height 1.57 m Height (Calculated Centimeters) 157.5 Current Weight (lbs) 63.957 kg Weight (Calculated Kilograms) 64.0 Weight (Calculated Grams) 14381.5 [place] Body Weight 110 Body Mass Index (BMI) 25.7 Weight Status Approriate GI Symptoms GI Symptoms None Last BM 0 Difficult in: None Skin Integrity/Comment: rash to vagina, bruise to right and left hand, pressure area to right buttocks Estimated Nutritional Goals BEE in Kcals: Using Current wt Calories/Kcals/Kg 25-30 Kcals Calculated 7817-6078 Protein: Using Current wt Protein g/k.8-1 Protein Calculated 51-64 watch renal labs Fluid: ml 1600-1920ml (1ml/kcal) Nutritional Problem 2. Problem Problem increased nutrition needs ( protein) Etiology increased metabolic demand for wounds Signs/Symptoms: pressure area to right buttocks 1. Problem Problem altered nutrition related lab values Etiology acute renal failure Signs/Symptoms: BUN 48, Cr 3.6 Malnutrition Alert Protein-Calorie Malnutrition N/A Is there a minimum of two criteria No selected? Query Text:Check all the applicable criteria. A minimum of two criteria are recommended for diagnosis of either severe or non-severe malnutrition. Intervention/Recommendation Comments 1. Continue with current diet as ordered. Encouraged PO intake. Updated pt diet profile with pediatric dietician. 2. Monitor PO intake, wt, labs and skin integrity 3. F/U as high risk in 2-3 days, 09/28-09/29 Expected Outcomes/Goals Expected Outcomes/Goals 1. PO intake to meet at least 75% of nutritional needs. 2. Wt stability, skin to remain intact, labs to approach WNL.
[2017-09-28] MEDS: Sodium Ferric Gluconate 125 MG in Sodium Chloride 0.9% 100 ML IV SCH (16:08)
[2017-09-29 05:45] LABS: HEMATOCRIT 24.2 % (41.0-60); HEMOGLOBIN 8.3 gm/dL (12-16); MEAN CELL VOLUME 93.6 fl (81-100); MEAN CORPUSCULAR HGB CONC 34.3 pg (28.0-36.0); WHITE BLOOD COUNT 8.8 Th/cmm (4.8-10.8)
[2017-09-29 05:52] LABS: % BASOPHILS 7.7 % (0.0-2.0); % EOSINOPHILS 11.7 % (0.0-5.0); % MONOCYTES 7.4 % (2.0-10.0); % NEUTROPHILS 50.2 % (40.0-80.0); BASOPHILE ABSOLUTE 0.7 Th/cumm (0-0.2); MEAN CORPUSCULAR HEMOGLOBIN 32.2 pg (27.0-31.0); MEAN PLATELET VOLUME 7.7 fl; MONOCYTE ABSOLUTE 0.7 Th/cmm (0.3-1.0); NEUTROPHILE ABSOLUTE 4.4 Th/cmm (1.8-8.0); PLATELET COUNT 241 Th/cmm (150-400); RED BLOOD COUNT 2.58 Mil/cmm (3.80-5.20); RED CELL DISTRIBUTION WIDTH 13.1 % (11.5-20.0)
[2017-09-29 06:10] LABS: ANION GAP 9.9 (7.0-16.0); BUN - UREA NITROGEN 31 mg/dL (7-25); CALCIUM SERUM 9.2 mg/dL (8.6-10.3); CARBON DIOXIDE 18.4 mEq/L (21.0-31.0); CHLORIDE 115 mEq/L (98-107); CREATININE - SERUM 2.8 mg/dL (0.6-1.2); GLUCOSE 78 mg/dL (70-105); POTASSIUM SERUM 4.3 mEq/L (3.5-5.1); SODIUM SERUM 139 mEq/L (136-145)
--- NOTE | 2017-09-29 09:52 | Discharge Summary ---
DATE OF DISCHARGE: 09/29/2017 DATE OF DISCHARGE: 09/29/2017. CAUSE OF ADMISSION: The patient is a 81-year-old female who is a patient of mine at [facility]. She has history of anemia, renal insufficiency, and neuropathic pain. Routine labs should her renal function worsened and she was feeling much worse and weaker. She was sent to the hospital for acute renal failure. ADMITTING DIAGNOSES: 1. Vasomotor nephropathy. 2. Anemia of chronic illness. 3. Dementia, Alzheimer's type. 4. Hypertension. 5. Metabolic encephalopathy. 6. Neuropathic pain. 7. Dyslipidemia. 8. Peripheral arterial disease. 9. Hyponatremia. DISCHARGE DIAGNOSES: 1. Vasomotor nephropathy. 2. Anemia of chronic illness. 3. Dementia, Alzheimer's type. 4. Hypertension. 5. Metabolic encephalopathy. 6. Neuropathic pain. 7. Dyslipidemia. 8. Peripheral arterial disease. 9. Hyponatremia. SUMMARY OF HOSPITAL COURSE: Dr. Andrew was consulted for Nephrology. Renal ultrasound was done. Creatinine has been improving slowly. She has been on IV fluids. The blood pressure has been stable. All medications have been reviewed and reconciled. She is feeling much better now. She is stronger as well. She is stable to be [facility]. PHYSICAL EXAMINATION: VITAL SIGNS: Temperature 97.2 degrees, heart rate is 68, respirations 18, and blood pressure 151/49. Currently, no pain. GENERAL: No acute distress, awake, pleasant. HEENT: No acute issues. NECK: Trachea is midline. CARDIOVASCULAR: Regular rate and rhythm. SKIN: No rash. EXTREMITIES: No edema. LABORATORY DATA: Sodium 139, potassium 4.3, chloride 115, bicarbonate 18.4, BUN 31, and creatinine 2.8. White count is 8.8, hemoglobin is 8.3, and platelet count is 241,000. Also, the patient's chest x-ray did not show any acute abnormalities. Renal ultrasound also did not show anything acute or anything urgent. UA was negative. PROGNOSIS: Fair. ACTIVITY: As tolerated. DISPOSITION: She is being [facility] CONSULTS: Dr. Willian Andrew for Nephrology. JOB# [id number]
[2017-09-29] MEDS ORDERED: Epoetin Alfa 20000 Units/mL Vial SUBQ SCH (13:23)
== END 2017-09-29 13:20 | disposition home or self-care (01) | DRG 682 ==
LOC: ER 17:48 → MSI 21:00
PROVIDERS: ADMIT General Practice; ATTEND General Practice
DX: N17.0 Acute kidney failure with tubular necrosis (principal); G93.41 Metabolic encephalopathy; I13.2 Hypertensive heart and chronic kidney disease with heart failure and with stage 5 chronic kidney disease, or end stage renal disease; E87.2 Acidosis; N18.6 End stage renal disease; I50.9 Heart failure, unspecified; G30.9 Alzheimer's disease, unspecified; F02.80 Dementia in other diseases classified elsewhere, unspecified severity, without behavioral disturbance, psychotic disturbance, mood disturbance, and anxiety; E78.5 Hyperlipidemia, unspecified; I73.9 Peripheral vascular disease, unspecified; Z66 Do not resuscitate; I25.10 Atherosclerotic heart disease of native coronary artery without angina pectoris; K21.9 Gastro-esophageal reflux disease without esophagitis; M19.90 Unspecified osteoarthritis, unspecified site; F31.9 Bipolar disorder, unspecified; G62.9 Polyneuropathy, unspecified; D63.1 Anemia in chronic kidney disease; Z82.49 Family history of ischemic heart disease and other diseases of the circulatory system; Z83.3 Family history of diabetes mellitus
CPT/HCPCS: 36415-UA; 71045-TC; 76770-TC; 80048-TC; 80053-TC; 80061-TC; 81001-TC; 82140-TC; 82550-TC; 82728-90; 82784-90; 83036-90; 83540-90; 83550-90; 83735-TC; 83880-TC; 84100-TC; 84156-TC; 84300-TC; 84484-TC; 85007-TC; 85025-TC; 85027-TC; 85610-TC; 86325-90; 86334-90; 93005; J0885; J1644; J2001; J2405; J2916; J3480; J7030; J7042; Z7610

== ENCOUNTER 2017-10-13 21:55 | Inpatient (IN) | payer MEDICARE, OTHER ==
[2017-10-13 22:18] LABS: % BASOPHILS 1.1 % (0.0-2.0); % EOSINOPHILS 10.6 % (0.0-5.0); % LYMPHOCYTES 21.4 % (20.0-50.0); % MONOCYTES 7.3 % (2.0-10.0); % NEUTROPHILS 59.6 % (40.0-80.0); BASOPHILE ABSOLUTE 0.1 Th/cumm (0-0.2); EOSINOPHILE ABSOLUTE 1.1 Th/cmm (0.1-0.4); HEMATOCRIT 28.5 % (41.0-60); HEMOGLOBIN 9.3 gm/dL (12-16); LYMPHOCYTE ABSOLUTE 2.1 Th/cmm (1.5-3.0); MEAN CELL VOLUME 95.6 fl (81-100); MEAN CORPUSCULAR HEMOGLOBIN 31.4 pg (27.0-31.0); MEAN CORPUSCULAR HGB CONC 32.8 pg (28.0-36.0); MEAN PLATELET VOLUME 7.4 fl; MONOCYTE ABSOLUTE 0.7 Th/cmm (0.3-1.0); PLATELET COUNT 324 Th/cmm (150-400); RED BLOOD COUNT 2.98 Mil/cmm (3.80-5.20); RED CELL DISTRIBUTION WIDTH 13.9 % (11.5-20.0)
[2017-10-13 22:29] LABS: INR 0.99 (0.5-1.4); PROTHROMBIN TIME (TEST) 10.3 SECONDS (9.5-11.5)
--- NOTE | 2017-10-13 22:41 | ED Physician Chart ---
ED Chief Complaint/HPI - Patient Information Date Seen:: 10/13/17 Time Seen:: 22:20 Chief Complaint:: ABNORMAL LABS History of Present Illness:: THIS IS A CHRONICALLY ILL 81 YO FEMALE WHO WAS SENT HERE FOR AN EVALUATION BECAUSE OF ABNORMAL LAB TEST. SHE DENIES CHEST PAIN, ABDOMINAL PAIN AND ONLY HAS PAIN IN HER RIGHT KNEE. ON REVIEW OF HER OLD RECORDS FROM ADMISSIONS HERE SHE WAS ANEMIA, HAD LIVER AND RENAL FAILURE. SHE HAS A HISTORY OR CVA,HTN, HEART DISEASE,BIPOLAR AND HYPERCHOLSTEROLEMIA AND NEUROPATHY. SHE IS A DO NOT RESUSCITATE. THE PATIENT HAS BEEN UNCOOPERATIVE AND CONFUSION. Allergies:: Allergies Allergy/AdvReac Type Severity Reaction Status Date / Time No Known Allergies Allergy Verified 10/13/17 22:15 Vitals:: Vital Signs - 8 hr 10/13/17 21:55 Temp 98.3 F HR 66 RR 14 BP 155/76 O2 Sat % 92 Historian:: Patient, Medical Records Review:: Nurse's Note Reviewed, Old Chart Reviewed, Transfer documents Reviewed ED Review of Systems - Review of Systems General/Constitutional: No fever, No chills, No weight loss, No weakness, No diaphoresis, No edema, No loss of appetite, Other (THE PATIENT IS UNABLE TO GIVE REVIEW OF SYSTEMS.) Skin: No skin lesions, No rash, No bruising Head: No headache, No light-headedness Eyes: No loss of vision, No pain, No diplopia ENT: No earache, No nasal drainage, No sore throat, No tinnitus Neck: No neck pain, No swelling, No thyromegaly, No stiffness, No mass noted Cardio Vascular: No chest pain, No palpitations, No PND, No orthopnea, No edema Pulmonary: No SOB, No cough, No sputum, No wheezing GI: No nausea, No vomiting, No diarrhea, No pain, No melena, No hematochezia, No constipation, No hematemesis G/U: No dysuria, No frequency, No hematuria Musculoskeletal: No bone or joint pain, No back pain, No muscle pain Endocrine: No polyuria, No polydipsia Psychiatric: No prior psych history, No depression, No anxiety, No suicidal ideation Hematopoietic: No bruising, No lymphadenopathy Allergic/Immuno: No urticaria, No angioedema Neurological: No syncope, No focal symptoms, No weakness, No paresthesia, No headache, No seizure, No dizziness, No confusion, No vertigo ED Past Medical History - Past Medical History Obtainable: Yes Past Medical History: HTN, CAD, CVA/TIA, Dyslipidemia, ESRD, Arthritis, Dementia Family History: None Social History: Non Smoker, No Alcohol, No Drug Use, Care Facility Surgical History: None Psychiatricy History: Depression, Bipolar, Dementia Family Medical History - Family Member Mother History Unknown: Yes ED Physical Exam - Physical Examination General/Constitutional: Awake, Well-developed, well-nourished, Alert, No distress, GCS 15, Non-toxic appearing, Ambulatory Head: Atraumatic Eyes: Lids, conjuctiva normal, PERRL, EOMI Skin: Nl inspection, No rash, No skin lesions, No ecchymosis, Well hydrated, No lymphadenopathy ENMT: External ears, nose nl, Nasal exam nl, Lips, teeth, gums nl Neck: Nontender, Full ROM w/o pain, No JVD, No nuchal rigidity, No bruit, No mass, No stridor Respiratory: Nl effort/Exclusion, Clear to Auscultation, No Wheeze/Rhonchi/Rales Cardio Vascular: RRR, No murmur, gallop, rubs, NL S1 S2 GI: No tenderness/rebounding/guarding, No organomegaly, No hernia, Normal BS's, Nondistended, No mass/bruits, No McBurney tenderness : No CVA tenderness Extremities: No tenderness or effusion, Full ROM, normal strength in all extremities, No edema, Normal digits & nails Neuro/Psych: Alert/oriented, DTR's symmetric, Normal sensory exam, Normal motor strength, Judgement/insight normal (POOR INSIGHT AND JUDGEMENT), Mood normal ( DEPRESSED MOOD), Normal gait, No focal deficits Misc: No paraspinal tenderness Other Misc comments:: THERE IS MILD KYPHOSIS OF THE THORACIC SPINE ED Labs/Radiology/EKG Results - Lab Results Results: Abnormal Lab Results 10/13/17 10/13/17 10/13/17 22:00 22:00 22:00 WBC 10.0 RBC 2.98 L Hgb 9.3 L Hct 28.5 L MCV 95.6 MCH 31.4 H MCHC Differential 32.8 RDW 13.9 Plt Count 324 MPV 7.4 Neutrophils % 59.6 Lymphocytes % 21.4 Monocytes % 7.3 Eosinophils % 10.6 H Basophils % 1.1 PT 10.3 INR 0.99 PTT (Actin FS) 24.7 L Specimen Source Sample Site pH pCO2 pO2 HCO3 Base Excess O2 Saturation Song Test Vent Rate Inspired O2 Tidal Volume PEEP Pressure (ins/psv/peep) Critical Value Sodium Potassium Chloride Carbon Dioxide Anion Gap BUN Creatinine Est GFR ( Amer) Est GFR (Non-Af Amer) BUN/Creatinine Ratio Glucose Calcium Total Bilirubin AST ALT Alkaline Phosphatase Troponin I Total Protein Albumin Globulin Albumin/Globulin Ratio Triglycerides 74 Cholesterol 84 LDL Cholesterol Direct 35 L HDL Cholesterol 43 Urine Source Urine Color Urine Clarity Urine pH Ur Specific [place] Urine Protein Urine Glucose (UA) Urine Ketones Urine Blood Urine Nitrate Urine Bilirubin Urine Urobilinogen Ur Leukocyte Esterase Urine RBC Urine WBC Ur Epithelial Cells Urine Bacteria 10/13/17 10/13/17 10/13/17 22:00 22:00 22:30 WBC RBC Hgb Hct MCV MCH MCHC Differential RDW Plt Count MPV Neutrophils % Lymphocytes % Monocytes % Eosinophils % Basophils % PT INR PTT (Actin FS) Specimen Source Sample Site pH pCO2 pO2 HCO3 Base Excess O2 Saturation Song Test Vent Rate Inspired O2 Tidal Volume PEEP Pressure (ins/psv/peep) Critical Value Sodium 142 Potassium 4.3 Chloride 110 H Carbon Dioxide 19.2 L Anion Gap 17.1 H BUN 50 H Creatinine 3.4 H Est GFR ( Amer) TNP Est GFR (Non-Af Amer) TNP BUN/Creatinine Ratio 14.7 Glucose 92 Calcium 10.3 Total Bilirubin 0.3 AST 11 L ALT 8 Alkaline Phosphatase 53 Troponin I 0.01 Total Protein 7.3 Albumin 4.2 Globulin 3.1 Albumin/Globulin Ratio 1.4 Triglycerides Cholesterol LDL Cholesterol Direct HDL Cholesterol Urine Source CLEAN C Urine Color YELLOW Urine Clarity CLEAR Urine pH 6.5 Ur Specific [place] 1.010 Urine Protein 100 H Urine Glucose (UA) NEGATIVE Urine Ketones NEGATIVE Urine Blood TRACE Urine Nitrate NEGATIVE Urine Bilirubin NEGATIVE Urine Urobilinogen 0.2 Ur Leukocyte Esterase SMALL H Urine RBC 0-2 Urine WBC 0-2 Ur Epithelial Cells NONE SEEN Urine Bacteria NONE SEEN 10/13/17 22:44 WBC RBC Hgb Hct MCV MCH MCHC Differential RDW Plt Count MPV Neutrophils % Lymphocytes % Monocytes % Eosinophils % Basophils % PT INR PTT (Actin FS) Specimen Source MIXED ART/OSCAR Sample Site Left Radial pH 7.46 H pCO2 30.0 L pO2 51.0 L HCO3 23.5 Base Excess -1.6 O2 Saturation 88.0 L Song Test Positive Vent Rate N/A Inspired O2 21% Tidal Volume N/A PEEP N/A Pressure (ins/psv/peep) N/A Critical Value HSTEHNO Sodium Potassium Chloride Carbon Dioxide Anion Gap BUN Creatinine Est GFR ( Amer) Est GFR (Non-Af Amer) BUN/Creatinine Ratio Glucose Calcium Total Bilirubin AST ALT Alkaline Phosphatase Troponin I Total Protein Albumin Globulin Albumin/Globulin Ratio Triglycerides Cholesterol LDL Cholesterol Direct HDL Cholesterol Urine Source Urine Color Urine Clarity Urine pH Ur Specific [place] Urine Protein Urine Glucose (UA) Urine Ketones Urine Blood Urine Nitrate Urine Bilirubin Urine Urobilinogen Ur Leukocyte Esterase Urine RBC Urine WBC Ur Epithelial Cells Urine Bacteria - Radiology Results Results: CARDIOMEGALY AND LEFT PLEURAL EFFUSION - EKG Interpretations EKG Time:: 22:16 Rate & Rhythm: 65 sinus [place]: left ED Assessment - Assessment General Assessment: RENAL FAILURE ANEMIA PSYCHOSIS ED Septic Shock - . Is Septic Shock (SBP<90, OR Lactate>4 mmol\L) present?: No - <6hrs of presentation: Vital Signs: Vital Signs - 8 hr 10/13/17 21:55 Temp 98.3 F HR 66 RR 14 BP 155/76 O2 Sat % 92 ED Reassessment (Disposition) - Reassessment Reassessment Condition:: Unchanged - Diagnosis Diagnosis:: RENAL FAILURE PSYCHOSIS - Patient Disposition Discharge/Transfer:: Acute Care w/in this hosp Admitting Medical Physician:: Ivanna Bernstein Condition at Disposition:: Unchanged ED Discharge Plan - Patient Disposition Admit/Discharge/Transfer: Acute Care w/in this hosp Condition at Disposition: Stable
[2017-10-13 22:43] LABS: URINE MICROSCOPIC INDICATED? YES; URINE SOURCE CLEAN C
[2017-10-13 22:47] LABS: URINE BILIRUBIN NEGATIVE (NEGATIVE); URINE BLOOD TRACE (NEGATIVE); URINE GLUCOSE (UA) NEGATIVE (NEGATIVE); URINE KETONE NEGATIVE (NEGATIVE); URINE LEUKOCYTE ESTERASE SMALL (NEGATIVE); URINE NITRATE NEGATIVE (NEGATIVE); URINE PH 6.5 (4.6 - 8.0); URINE PROTEIN 100 mg/dL (NEGATIVE); URINE UROBILINOGEN 0.2 E.U./dL (0.2 - 1.0)
[2017-10-13 22:51] LABS: pH 7.46 (7.35-7.45)
[2017-10-13 22:52] LABS: ALLEN TEST Positive
[2017-10-13 22:56] LABS: ALB/GLOB RATIO 1.4 (1.0-1.8); ALBUMIN 4.2 gm/dL (3.7-5.3); ALKALINE PHOSPHATASE 53 U/L (34-104); ANION GAP 17.1 (7.0-16.0); BILIRUBIN,TOTAL 0.3 mg/dL (0.3-1.0); BUN - UREA NITROGEN 50 mg/dL (7-25); CALCIUM SERUM 10.3 mg/dL (8.6-10.3); CARBON DIOXIDE 19.2 mEq/L (21.0-31.0); CHLORIDE 110 mEq/L (98-107); CHOLESTEROL 84 mg/dL (<200); CREATININE - SERUM 3.4 mg/dL (0.6-1.2); GLUCOSE 92 mg/dL (70-105); HDL -HIGH DENSITY LIPOPROTEIN 43 mg/dL (23-92); POTASSIUM SERUM 4.3 mEq/L (3.5-5.1); SGOT 11 U/L (13-39); SGPT/ALT 8 U/L (7-52); SODIUM SERUM 142 mEq/L (136-145); TOTAL PROTEIN,SERUM 7.3 gm/dL (6.0-8.3); TRIGLYCERIDES 74 mg/dL (<150)
[2017-10-13 23:01] LABS: URINE CLARITY CLEAR (CLEAR); URINE COLOR YELLOW
[2017-10-13 23:03] LABS: URINE BACTERIA NONE SEEN /hpf (NONE SEEN); URINE EPITHELIAL CELLS NONE SEEN /lpf (FEW); URINE RBC 0-2 /hpf (0-5); URINE WBC 0-2 /hpf (0-5)
[2017-10-13] MEDS ORDERED: Morphine Sulfate 2 mg/mL 1mL Syr IVP PRN (23:50)
[2017-10-13] MEDS ORDERED: Potassium Chloride 20 mEq ER Tab PO PRN (23:50)
[2017-10-13] MEDS ORDERED: Mag Sulfate 2gm/50mL Premix 2 GM/50 ML BAG IV PRN (23:50)
[2017-10-13] MEDS ORDERED: Sodium Chloride 0.9% 1,000 ML IV SCH (23:52)
[2017-10-14] MEDS: Sodium Chloride 0.9% 1,000 ML IV SCH ×3 (01:22→23:44)
[2017-10-14 01:33] VITALS: BP 134/63
[2017-10-14] MEDS: Albuterol/Ipratropium Neb 3 ML AERS HHN SCH ×6 (03:21→22:30)
[2017-10-14 06:56] LABS: URINE MICROSCOPIC INDICATED? YES; URINE SOURCE RANDOM
[2017-10-14 06:58] LABS: ANION GAP 10.4 (7.0-16.0); BUN - UREA NITROGEN 48 mg/dL (7-25); CARBON DIOXIDE 22.5 mEq/L (21.0-31.0); CHLORIDE 111 mEq/L (98-107); CREATININE - SERUM 3.2 mg/dL (0.6-1.2); GLUCOSE 87 mg/dL (70-105); POTASSIUM SERUM 3.9 mEq/L (3.5-5.1); SODIUM SERUM 140 mEq/L (136-145)
[2017-10-14 07:00] LABS: % BASOPHILS 1.2 % (0.0-2.0); % EOSINOPHILS 13.6 % (0.0-5.0); % MONOCYTES 9.7 % (2.0-10.0); % NEUTROPHILS 48.5 % (40.0-80.0); BASOPHILE ABSOLUTE 0.1 Th/cumm (0-0.2); EOSINOPHILE ABSOLUTE 1.2 Th/cmm (0.1-0.4); HEMATOCRIT 27.1 % (41.0-60); HEMOGLOBIN 9.1 gm/dL (12-16); LYMPHOCYTE ABSOLUTE 2.4 Th/cmm (1.5-3.0); MEAN CELL VOLUME 95.1 fl (81-100); MEAN CORPUSCULAR HEMOGLOBIN 32.1 pg (27.0-31.0); MEAN CORPUSCULAR HGB CONC 33.7 pg (28.0-36.0); MEAN PLATELET VOLUME 7.9 fl; MONOCYTE ABSOLUTE 0.9 Th/cmm (0.3-1.0); NEUTROPHILE ABSOLUTE 4.2 Th/cmm (1.8-8.0); PLATELET COUNT 298 Th/cmm (150-400); RED BLOOD COUNT 2.85 Mil/cmm (3.80-5.20); RED CELL DISTRIBUTION WIDTH 13.8 % (11.5-20.0); WHITE BLOOD COUNT 8.8 Th/cmm (4.8-10.8)
[2017-10-14 07:42] LABS: URINE BILIRUBIN NEGATIVE (NEGATIVE); URINE CLARITY CLEAR (CLEAR); URINE COLOR YELLOW; URINE GLUCOSE (UA) NEGATIVE (NEGATIVE)
[2017-10-14 07:43] LABS: URINE BLOOD NEGATIVE (NEGATIVE); URINE KETONE NEGATIVE (NEGATIVE); URINE LEUKOCYTE ESTERASE NEGATIVE (NEGATIVE); URINE NITRATE NEGATIVE (NEGATIVE); URINE PROTEIN 100 mg/dL (NEGATIVE); URINE UROBILINOGEN 0.2 E.U./dL (0.2 - 1.0)
[2017-10-14 07:44] LABS: URINE BACTERIA FEW /hpf (NONE SEEN); URINE EPITHELIAL CELLS OCCASIONAL /lpf (FEW); URINE RBC NONE SEEN /hpf (0-5); URINE WBC 0-2 /hpf (0-5)
--- NOTE | 2017-10-14 09:00 | Diagnostic Imaging Report ---
CHEST X-RAY: AP view INDICATION: pain COMPARISON: 09/25/2017 FINDINGS: Chronic lung changes are noted. There is elevation of the left hemidiaphragm with left basal subsegmental atelectasis versus scarring. No focal consolidation or effusions. Cardiomegaly is noted with atherosclerosis. Degenerative changes of the spine are noted. There is evidence of prior cholecystectomy. IMPRESSION: Left basal subsegmental atelectasis versus scarring. No focal consolidation identified. Cardiomegaly and atherosclerotic vascular disease.
--- NOTE | 2017-10-14 09:40 | History & Physical ---
ADMIT DATE: 10/14/2017 CHIEF COMPLAINT: Psychosis, overall decline, decreased appetite, confusion. HISTORY OF PRESENT ILLNESS: The patient is a confused 81-year-old female. She is a patient of mine at [facility]. She has history of renal insufficiency along with mood disorder, depression, and neuropathic pain. Yesterday, she became more psychotic. She was agitated and was experiencing worsening aggression towards the staff and as she was also found to be hallucinating. She also decreased appetite and overall decline. It was more lethargic. She was sent to the hospital where she was found to have acute respiratory failure and acute renal failure. PAST MEDICAL HISTORY: Significant for neuropathic pain, hypertension, mood disorder, depression, dyslipidemia, and insomnia. SOCIAL HISTORY: No history of alcohol, tobacco, or drug abuse. FAMILY HISTORY: Noncontributory. ALLERGIES: No known drug allergies. SURGICAL HISTORY: No recent major surgeries. MEDICATIONS: All medications reviewed and reconciled. REVIEW OF SYSTEMS: GENERAL: Positive recent fatigue, decreased appetite, worsening confusion, and lethargy. HEENT: No recent head trauma or change in vision, taste, hearing, or smell. NEUROLOGIC: She has history of Alzheimer dementia. PSYCHIATRIC: She has history of mood disorder. ABDOMEN: No recent pain or distension. SKIN: No recent rashes. RESPIRATORY: Positive for shortness of breath with exertion. EXTREMITIES: No recent edema. MUSCULOSKELETAL: Positive for decreased muscle strength in lower extremities. NEUROLOGIC: She has history of neuropathic pain, but no stroke. CARDIOVASCULAR: She has history of hypertension. GASTROINTESTINAL: No recent nausea or vomiting. GENITOURINARY: No recent dysuria. PHYSICAL EXAMINATION: VITAL SIGNS: Temperature 97.1 degrees, heart rate is 66, respirations 18, and blood pressure 115/76. Currently, no pain. GENERAL: No acute distress. She is awake, alert to name only. She is very confused. She has labile mood. HEENT: No acute issues. NECK: Trachea is midline. CARDIOVASCULAR: Regular rate and rhythm. RESPIRATORY: Decreased breath sounds bilaterally with some congestion. EXTREMITIES: No edema. SKIN: No rashes. PSYCHIATRIC: She has labile mood. NEUROLOGIC: No evidence of acute stroke or seizure activity. GENITOURINARY: No hematuria is noted. LABORATORY DATA: UA is essentially negative. White count is 10, hemoglobin is 9.3, and platelet count is 324,000. INR is 0.99. ABG shows pH of 7.46, pCO2 of 30, and pO2 51. Sodium 142, potassium 4.3, chloride 110, bicarbonate 19.2, BUN 50, creatinine 3.4, AST is 11. Chest x-ray still pending. ASSESSMENT: 1. Acute respiratory failure. 2. Anemia of chronic illness. 3. Vasomotor nephropathy. 4. Hypertension. 5. Neuropathic pain. 6. Dementia, Alzheimer's type with exacerbation. PLAN: The patient's chest x-ray is pending. Continue breathing treatments with DuoNeb. Dr. Madison has been consulted for pulmonary followup on renal function. She is on IV fluids. Renal function is improving. Also, Dr. Collins has been consulted for Psychiatry. Continue Neurontin for nerve pain. Also, continue heparin for DVT prophylaxis. Prognosis is guarded. JOB# [id number]
--- NOTE | 2017-10-14 14:26 | History & Physical ---
ADMIT DATE: 10/14/2017 PHYSICIAN REQUESTING CONSULTATION: Dr. Bernstein. REASON FOR CONSULTATION: Psychosis. HISTORY OF PRESENT ILLNESS: This patient is a 81-year-old woman, resident of [facility], admitted to the Medical Unit for acute respiratory and renal failure and a psychiatric consultation is called to address the issue of the psychosis. Chart is reviewed. Staff was spoken to. The patient is interviewed. The patient at this time is noted to be very lethargic and is not able to provide much of information, but patient is reported to have been getting easily irritable, angry and aggressive at the facility. The patient could not be contained. The patient is also reported to have been responding to internal stimuli. The patient has not been eating well. Sleep is also noted to be very poor. PAST PSYCHIATRIC HISTORY: Details are not known. MEDICAL HISTORY: Significant for neuropathic pain, hypertension and dyslipidemia. SOCIAL HISTORY: The patient is a resident of the [facility]. SEXUAL ABUSE HISTORY: None. PHYSICAL OR SEXUAL ABUSE HISTORY: Details are not known. MENTAL STATUS EXAMINATION: The patient is a 81-year-old woman, thin built, superficially cooperative. Eye contact is poor. Mood is noted to be irritable. Affect is constricted. The patient is very tall drowsy and groggy. The patient is not able to provide much of information, but the review of the chart indicated the patient is reported to have been having a difficult time with her aggressive and psychotic behavior. The patient is also noted to be very impulsive. Prior to being hospitalized. The patient is alert and awake that and fully aware that she is in the hospital, but attention span and concentration are noted to be very poor. DIAGNOSTIC IMPRESSION: Psychotic disorder, not otherwise specified. PLAN: To continue the patient with the 12.5 mg of the Seroquel that has been ordered and will follow the patient. The need for transfer to the psychiatric unit is going to be decided depending on the response and medical clearance of the patient. JOB# [id number]
[2017-10-14 17:52] LABS: A1C % 5.5 % (4.0-6.0)
[2017-10-15] MEDS: Albuterol/Ipratropium Neb 3 ML AERS HHN SCH ×6 (02:34→22:22)
[2017-10-15 06:46] LABS: % BASOPHILS 1.2 % (0.0-2.0); % EOSINOPHILS 11.4 % (0.0-5.0); % LYMPHOCYTES 32.5 % (20.0-50.0); % MONOCYTES 9.4 % (2.0-10.0); % NEUTROPHILS 45.5 % (40.0-80.0); BASOPHILE ABSOLUTE 0.1 Th/cumm (0-0.2); EOSINOPHILE ABSOLUTE 0.9 Th/cmm (0.1-0.4); HEMATOCRIT 24.2 % (41.0-60); HEMOGLOBIN 8.1 gm/dL (12-16); LYMPHOCYTE ABSOLUTE 2.6 Th/cmm (1.5-3.0); MEAN CELL VOLUME 94.7 fl (81-100); MEAN CORPUSCULAR HEMOGLOBIN 31.8 pg (27.0-31.0); MEAN CORPUSCULAR HGB CONC 33.6 pg (28.0-36.0); MEAN PLATELET VOLUME 7.7 fl; MONOCYTE ABSOLUTE 0.8 Th/cmm (0.3-1.0); NEUTROPHILE ABSOLUTE 3.7 Th/cmm (1.8-8.0); PLATELET COUNT 270 Th/cmm (150-400); RED BLOOD COUNT 2.55 Mil/cmm (3.80-5.20); WHITE BLOOD COUNT 8.1 Th/cmm (4.8-10.8)
[2017-10-15 07:01] LABS: ANION GAP 10.4 (7.0-16.0); BUN - UREA NITROGEN 43 mg/dL (7-25); CALCIUM SERUM 9.5 mg/dL (8.6-10.3); CARBON DIOXIDE 20.9 mEq/L (21.0-31.0); CHLORIDE 112 mEq/L (98-107); CREATININE - SERUM 3.2 mg/dL (0.6-1.2); GLUCOSE 89 mg/dL (70-105); POTASSIUM SERUM 4.3 mEq/L (3.5-5.1); SODIUM SERUM 139 mEq/L (136-145)
[2017-10-15 08:46] LABS: ALLEN TEST POSITIVE
--- NOTE | 2017-10-15 09:39 | General Progress Note ---
Subjective - Review of Systems Service Date: 10/15/17 Subjective: Pt seen and eval. On O2 and breathing tx. Her O2 sats have been fluctuating. Seen by pulm, the physician covering for Dr. Barry. CXR doesn't show any PNA. Pt is weak. No n,v,d or cp. Has episodes of psychosis. Seen by Dr. Rogers, and is on Seroquel now. Objective - Results Result Diagrams: 10/15/17 06:05 10/15/17 06:05 Recent Labs: Laboratory Last Values WBC 8.1 Th/cmm (4.8-10.8) 10/15/17 06:05 RBC 2.55 Mil/cmm (3.80-5.20) L 10/15/17 06:05 Hgb 8.1 gm/dL (12-16) L 10/15/17 06:05 Hct 24.2 % (41.0-60) L 10/15/17 06:05 MCV 94.7 fl (81-100) 10/15/17 06:05 MCH 31.8 pg (27.0-31.0) H 10/15/17 06:05 MCHC Differential 33.6 pg (28.0-36.0) 10/15/17 06:05 RDW 14.0 % (11.5-20.0) 10/15/17 06:05 Plt Count 270 Th/cmm (150-400) 10/15/17 06:05 MPV 7.7 fl 10/15/17 06:05 Neutrophils % 45.5 % (40.0-80.0) 10/15/17 06:05 Lymphocytes % 32.5 % (20.0-50.0) 10/15/17 06:05 Monocytes % 9.4 % (2.0-10.0) 10/15/17 06:05 Eosinophils % 11.4 % (0.0-5.0) H 10/15/17 06:05 Basophils % 1.2 % (0.0-2.0) 10/15/17 06:05 PT 10.3 SECONDS (9.5-11.5) 10/13/17 22:00 INR 0.99 (0.5-1.4) 10/13/17 22:00 PTT (Actin FS) 24.7 SECONDS (26.0-38.0) L 10/13/17 22:00 Specimen Source Arterial 10/15/17 08:27 Sample Site Right Radial 10/15/17 08:27 pH 7.30 (7.35-7.45) L 10/15/17 08:27 pCO2 43.0 mmHg (35.0-45.0) 10/15/17 08:27 pO2 65.0 mmHg (80.0-100.0) L 10/15/17 08:27 HCO3 20.8 mEq/L (20.0-26.0) 10/15/17 08:27 Base Excess -5.1 mEq/L (-3.0-3.0) L 10/15/17 08:27 O2 Saturation 90.0 % (92.0-100.0) L 10/15/17 08:27 Song Test POSITIVE 10/15/17 08:27 Vent Rate NA 10/15/17 08:27 Inspired O2 21 10/15/17 08:27 Tidal Volume NA 10/15/17 08:27 PEEP NA 10/15/17 08:27 Pressure (ins/psv/peep) NA 10/15/17 08:27 Critical Value LULU BRADFORD 10/15/17 08:27 Sodium 139 mEq/L (136-145) 10/15/17 06:05 Potassium 4.3 mEq/L (3.5-5.1) 10/15/17 06:05 Chloride 112 mEq/L (98-107) H 10/15/17 06:05 Carbon Dioxide 20.9 mEq/L (21.0-31.0) L 10/15/17 06:05 Anion Gap 10.4 (7.0-16.0) 10/15/17 06:05 BUN 43 mg/dL (7-25) H 10/15/17 06:05 Creatinine 3.2 mg/dL (0.6-1.2) H 10/15/17 06:05 Est GFR ( Amer) TNP 10/15/17 06:05 Est GFR (Non-Af Amer) TNP 10/15/17 06:05 BUN/Creatinine Ratio 13.4 10/15/17 06:05 Glucose 89 mg/dL (70-105) 10/15/17 06:05 POC Glucose 92 MG/DL (70 - 105) 10/14/17 00:15 Hemoglobin A1c % 5.5 % (4.0-6.0) 10/13/17 22:00 Calcium 9.5 mg/dL (8.6-10.3) 10/15/17 06:05 Magnesium 2.2 mg/dL (1.9-2.7) 10/13/17 22:00 Total Bilirubin 0.3 mg/dL (0.3-1.0) 10/13/17 22:00 AST 11 U/L (13-39) L 10/13/17 22:00 ALT 8 U/L (7-52) 10/13/17 22:00 Alkaline Phosphatase 53 U/L (34-104) 10/13/17 22:00 Troponin I 0.01 ng/mL (0.01-0.05) 10/13/17 22:00 Total Protein 7.3 gm/dL (6.0-8.3) 10/13/17 22:00 Albumin 4.2 gm/dL (3.7-5.3) 10/13/17 22:00 Globulin 3.1 gm/dL 10/13/17 22:00 Albumin/Globulin Ratio 1.4 (1.0-1.8) 10/13/17 22:00 Triglycerides 74 mg/dL (<150) 10/13/17 22:00 Cholesterol 84 mg/dL (<200) 10/13/17 22:00 LDL Cholesterol Direct 35 mg/dL (75-193) L 10/13/17 22:00 HDL Cholesterol 43 mg/dL (23-92) 10/13/17 22:00 TSH 1.16 uIU/ml (0.34-5.60) 10/13/17 22:00 Urine Source RANDOM 10/14/17 06:15 Urine Color YELLOW 10/14/17 06:15 Urine Clarity CLEAR (CLEAR) 10/14/17 06:15 Urine pH 6.0 (4.6 - 8.0) 10/14/17 06:15 Ur Specific Excello 1.020 (1.005-1.030) 10/14/17 06:15 Urine Protein 100 mg/dL (NEGATIVE) H 10/14/17 06:15 Urine Glucose (UA) NEGATIVE mg/dL (NEGATIVE) 10/14/17 06:15 Urine Ketones NEGATIVE mg/dL (NEGATIVE) 10/14/17 06:15 Urine Blood NEGATIVE (NEGATIVE) 10/14/17 06:15 Urine Nitrate NEGATIVE (NEGATIVE) 10/14/17 06:15 Urine Bilirubin NEGATIVE (NEGATIVE) 10/14/17 06:15 Urine Urobilinogen 0.2 E.U./dL (0.2 - 1.0) 10/14/17 06:15 Ur Leukocyte Esterase NEGATIVE (NEGATIVE) 10/14/17 06:15 Urine RBC NONE SEEN /hpf (0-5) 10/14/17 06:15 Urine WBC 0-2 /hpf (0-5) 10/14/17 06:15 Ur Epithelial Cells OCCASIONAL /lpf (FEW) 10/14/17 06:15 Urine Bacteria FEW /hpf (NONE SEEN) 10/14/17 06:15 - Physical Exam Vitals and I&O: Vital Signs Temp 96.8 F 10/15/17 09:24 Pulse 77 10/15/17 09:24 Resp 20 10/15/17 09:24 BP 146/49 10/15/17 09:24 Pulse Ox 96 10/15/17 09:24 Intake & Output 10/14/17 10/15/17 10/15/17 18:59 06:59 18:59 Intake Total 1381.305 7459 Balance 6453.380 3988 Weight (lbs) 60.781 kg 60.781 kg Intake: Intake, IV Amount 857.333 932 Sodium Chloride 0.9% 1, 857.333 932 000 ml @ 80 mls/hr IV . [id number] [facility] Rx#:[id number] Oral 300 240 Other: # Voids 3 3 Weight Source Bedscale Bedscale Active Medications: Current Medications Acetaminophen (Tylenol) 650 mg PO Q6H PRN PRN Reason: HEADACHE/TEMP ABOVE 100F Stop: 12/12/17 23:49 Albuterol/Ipratropium (Duoneb Neb) 3 ml HHN Q4HRT [facility] Stop: 12/13/17 02:59 Last Admin: 10/15/17 06:47 Dose: 3 ml Amlodipine Besylate (Norvasc) 10 mg PO DAILY [facility] Stop: 12/13/17 08:59 Last Admin: 10/15/17 08:36 Dose: 10 mg Docusate Sodium (Colace) 100 mg PO BID PRN PRN Reason: Constipation Stop: 12/12/17 23:49 Donepezil HCl (Aricept) 5 mg PO HS [facility] Stop: 12/13/17 20:59 Last Admin: 10/14/17 20:20 Dose: 5 mg Duloxetine HCl (Cymbalta) 30 mg PO DAILY YAMILETH PRN Reason: Protocol Stop: 12/13/17 08:59 Last Admin: 10/15/17 08:36 Dose: 30 mg Gabapentin (Neurontin) 100 mg PO TID [facility] Stop: 12/13/17 08:59 Last Admin: 10/15/17 08:36 Dose: 100 mg Heparin Sodium (Porcine) (Heparin) 5,000 units SUBQ Q12HR [facility] Stop: 12/13/17 08:59 Last Admin: 10/15/17 08:37 Dose: 5,000 units Magnesium Sulfate (Magnesium Sulfate Premix) 2 gm in 50 mls @ 25 mls/hr IV DAILY PRN PRN Reason: Magnesium level less than 1.6 Stop: 12/12/17 23:49 Sodium Chloride (Nacl 0.9%) 1,000 mls @ 80 mls/hr IV .[id number] [facility] Stop: 12/13/17 00:29 Last Admin: 10/14/17 23:44 Dose: 80 mls/hr Lorazepam (Ativan) 1 mg IVP Q4HR PRN; Protocol PRN Reason: Anxiety Stop: 12/12/17 23:49 Last Admin: 10/14/17 21:59 Dose: 1 mg Magnesium Oxide (Mag-Oxide) 400 mg PO BID PRN PRN Reason: Mg less than 1.9 Stop: 12/12/17 23:49 Metoprolol Tartrate (Lopressor) 25 mg PO BID [facility] Stop: 12/13/17 08:59 Last Admin: 10/15/17 08:36 Dose: 25 mg Morphine Sulfate (Morphine) 1 mg IVP Q4HR PRN PRN Reason: Severe Pain Stop: 12/12/17 23:49 Ondansetron HCl (Zofran) 4 mg IVP Q6H PRN PRN Reason: Nausea / Vomiting Stop: 12/12/17 23:49 Potassium Chloride (Klor-Con) 40 meq PO DAILY PRN PRN Reason: k level less than 3.5 Stop: 12/12/17 23:49 Quetiapine Fumarate (Seroquel) 12.5 mg PO HS YAMILETH PRN Reason: Protocol Stop: 12/13/17 20:59 Last Admin: 10/14/17 20:20 Dose: 12.5 mg Simvastatin (Zocor) 20 mg PO HS YAMILETH PRN Reason: Protocol Stop: 12/13/17 20:59 Last Admin: 10/14/17 20:20 Dose: 20 mg Zolpidem Tartrate (Ambien) 10 mg PO HS PRN PRN Reason: Insomnia Stop: 12/12/17 23:49 General: No acute distress HEENT: Atraumatic, PERRLA Neck: Supple, JVD Cardiovascular: Regular rate, Normal S1, Normal S2 Lungs: Other (decreased BS bl) Abdomen: Bowel sounds, Soft Assessment/Plan - Assessment Assessment: Acute resp fail COPD exac Psychosis VMN Anemia of Ch Ill Neuropathic Pain KITTY with exac - Plan Plan: On Seroquel now per psych. Seen by pulm. On O2 and bronchodilators. Repeat ABG done and reviewed. FU on chem panel. On iv fluids. No pna on cxr.
--- NOTE | 2017-10-15 10:24 | Diagnostic Imaging Report ---
Exam: Portable chest x-ray HISTORY: Pneumonia COPD Findings: Portable examination of the chest at 0759 hours reviewed compatible prior study of the 10/13/2017 unchanged appearance. Mediastinal structures midline the heart is prominent. The aortic arch calcified tortuous. COPD changes are noted. Bony thorax is intact. IMPRESSION no acute disease.
[2017-10-15] MEDS: Sodium Chloride 0.9% 1,000 ML IV SCH ×2 (11:26→23:18)
--- NOTE | 2017-10-15 12:55 | Consultation ---
DATE OF CONSULTATION: This consultation is for Dr. Madison. Dr. Wynn is covering for Dr. Madison. HISTORY OF PRESENT ILLNESS: This is a 81-year-old female with history of bipolar, psychosis, multiple other medical problems who is a very poor historian. She seems to be lethargic. She does not provide me with any history. The history is obtained from the computer information and other physicians' notes. She is a resident of [facility]. As I mentioned, she has history of multiple medical problems, i.e., history of hypertension; mood disorder, bipolar; depression; CVA; neuropathic pain; hypertension; and multiple other medical problems. She is admitted secondary to agitation, more altered level of consciousness, poor appetite, lethargy and hallucinations. In the ER, her workup, i.e., WBC count is normal. Chest x-ray shows left base atelectasis or scarring. However, her ABG shows a low pO2 of 51 on room air and also her BUN and creatinine is elevated, i.e., she is having acute renal failure and her severe dehydration, so the patient is admitted and consultation requested secondary to her low oxygen levels. PAST MEDICAL HISTORY: As above plus she also has history of dyslipidemia and insomnia. SOCIAL HISTORY: She is a resident of [facility]. FAMILY HISTORY: Noncontributory. ALLERGIES: No known drug allergies. SOCIAL HISTORY: She currently does not smoke, does not drink. I do not know her previous history. PAST SURGICAL HISTORY: As per notes, no recent major surgeries. MEDICATIONS: Currently, she is on Tylenol, albuterol, Atrovent, amlodipine, docusate sodium, Aricept, Cymbalta, gabapentin, heparin, lorazepam, magnesium oxide, metoprolol, morphine sulfate, Zofran, Seroquel, simvastatin, zolpidem. REVIEW OF SYSTEMS: Unobtainable secondary to the patient's condition. PHYSICAL EXAMINATION: GENERAL: She seems to be quiet at this time. VITAL SIGNS: Temperature is 97.4, respiratory rate is 20, heart rate is 72 and blood pressure is 133/62. LUNGS: Bibasilar rhonchi, no wheezing. HEART: Regular rate and rhythm. No murmur, no rub, no gallop. ABDOMEN: Soft, nontender. EXTREMITIES: Without clubbing, cyanosis, or edema. SIGNIFICANT LABORATORY DATA: Her labs from today, the sodium is 140; potassium is 3.9; chloride is 111; BUN is still elevated, i.e. 48; creatinine is 2.3. Blood gases, which were done yesterday, the pH is 7.46, pCO2 is 30, pO2 is 51 and bicarbonate is 23.5 and this was on room air. Her WBC count today is 8.8, hemoglobin is 9.1, hematocrit is 27.1 and platelets are 298. PT is 10.3 and INR is 0.99 and reviewed and is essentially clean. Chest x-ray mentioned before shows left lower lobe atelectasis or scarring. ASSESSMENT AND PLAN: On this lady who came in with altered level of consciousness and agitation. She is found to have acute renal failure. She is hypoxic. I am not sure the cause of her hypoxia since we do not know her previous history of smoking. She has been started on breathing treatments as needed. She is also seen by the Psych. We will follow recommendation from the Psych. We will repeat her ABGs and chest x-ray. We will continue her antipsychotic medications, Aricept, etc. We will watch her closely; therefore, the ABG does not show improvement. We will also repeat the chest x-ray if ABGs does not show any improvement or if there is any evidence of pneumonia, aspiration, etc. We will start her also on some antibiotics, but at this time, we will repeat her chest x-ray and ABG. Thank you very much, Dr. Bernstein, for asking us to see the patient. Dr. Madison will follow the patient with you. JOB# [id number]
--- NOTE | 2017-10-15 16:01 | Consultation ---
Consult Note - Consult Note Service Date: 10/15/17 Referring Physician: Ivanna Bernstein Consult Note: PHYSICIAN Consultation Note: Date of Admission: 10/13/17 Purpose of Consultation: diana/ckd Chief Complaint: aloc, hypoxia History of Present Illness: Patient LUIS DANIEL CHAND was admitted to [facility] Unit I with ACUTE RENAL FAILURE. She was seen by us earlier this month and noted to have DIANA on CKD. She presents now with altered level of consciousness, hallucinating , being more aggressive and agitated, then also with episodes of lethargy. On admission noted to be hypoxic. Cr noted to be elevated hence we are consulted. Past Medical History: as per hpi, also Alzheimer's dementia, hx CVA, htn Allergies Allergy/AdvReac Type Severity Reaction Status Date / Time No Known Allergies Allergy Verified 10/13/17 22:15 Vital Signs Temp 97.1 F 10/15/17 12:00 Pulse 70 10/15/17 15:08 Resp 20 10/15/17 15:08 BP 143/69 10/15/17 12:00 Pulse Ox 99 10/15/17 15:08 Intake & Output 10/14/17 10/15/17 10/15/17 18:59 06:59 18:59 Intake Total 7205.913 4639 936 Balance 3883.405 2081 936 Weight (lbs) 60.781 kg 60.781 kg Intake: Intake, IV Amount 857.333 932 936 Sodium Chloride 0.9% 1, 857.333 932 936 000 ml @ 80 mls/hr IV . [id number] [facility] Rx#:[id number] Oral 300 240 Other: # Voids 3 3 Weight Source Bedscale Bedscale Laboratory Results - last 24 hr 10/15/17 10/15/17 10/15/17 06:05 06:05 08:27 WBC 8.1 RBC 2.55 L Hgb 8.1 L Hct 24.2 L MCV 94.7 MCH 31.8 H MCHC Differential 33.6 RDW 14.0 Plt Count 270 MPV 7.7 Neutrophils % 45.5 Lymphocytes % 32.5 Monocytes % 9.4 Eosinophils % 11.4 H Basophils % 1.2 Specimen Source Arterial Sample Site Right Radial pH 7.30 L pCO2 43.0 pO2 65.0 L HCO3 20.8 Base Excess -5.1 L O2 Saturation 90.0 L Song Test POSITIVE Vent Rate NA Inspired O2 21 Tidal Volume NA PEEP NA Pressure (ins/psv/peep) NA Critical Value LULU FERNANDESO Sodium 139 Potassium 4.3 Chloride 112 H Carbon Dioxide 20.9 L Anion Gap 10.4 BUN 43 H Creatinine 3.2 H Est GFR ( Amer) TNP Est GFR (Non-Af Amer) TNP BUN/Creatinine Ratio 13.4 Glucose 89 Calcium 9.5 Home Medication Medication Instructions Recorded Type Acetaminophen [8 Hour] 650 mg PO Q4H PRN 09/25/17 History Acetaminophen [Acetaminophen Extra 1,000 mg PO Q4H PRN 09/25/17 History Strength] Acetaminophen [Acetaminophen Extra 500 mg PO Q4H PRN 09/25/17 History Strength] Acetaminophen [Tylenol Extra 500 mg PO BID 09/25/17 History Strength] Amlodipine Besylate 10 mg PO DAILY 09/25/17 History Bisacodyl [Dulcolax 10 Mg Supp] 10 mg RC DAILY PRN 09/25/17 History Docusate Sodium [Colace] 100 mg PO DAILY 09/25/17 History Duloxetine HCl [Cymbalta] 30 mg PO DAILY 09/25/17 History Famotidine [Pepcid] 20 mg PO BID 09/25/17 History Ferrous Sulfate [Iron] 1 cap PO BID 09/25/17 History Fleet Enema 135 ml RC DAILY PRN 09/25/17 History Gabapentin 100 mg PO TID 09/25/17 History Magnesium Hydroxide [Milk of 30 ml PO DAILY PRN 09/25/17 History Magnesia] Metoprolol Tartrate [Lopressor] 25 mg PO BID 09/25/17 History Polyethylene Glycol 3350 [Glycolax] 17 gm PO DAILY 09/25/17 History QUEtiapine Fumarate [SEROquel] 12.5 mg PO HS 09/25/17 History Simvastatin [Zocor*] 20 mg PO HS 09/25/17 History Donepezil Hcl [Aricept] 5 mg PO HS 10/13/17 History Current Medications Generic Name Dose Route Start Last Admin Trade Name Freq PRN Reason Stop Dose Admin Acetaminophen 650 mg 10/13/17 23:50 Tylenol PO 12/12/17 23:49 Q6H PRN HEADACHE/TEMP ABOVE 100F Albuterol/Ipratropium 3 ml 10/14/17 03:00 10/15/17 15:07 Duoneb Neb HHN 12/13/17 02:59 3 ml Q4HRT YAMILETH Administration Amlodipine Besylate 10 mg 10/14/17 09:00 10/15/17 08:36 Norvasc PO 12/13/17 08:59 10 mg DAILY YAMIELTH Administration Docusate Sodium 100 mg 10/13/17 23:50 Colace PO 12/12/17 23:49 BID PRN Constipation Donepezil HCl 5 mg 10/14/17 21:00 10/14/17 20:20 Aricept PO 12/13/17 20:59 5 mg HS YAMILETH Administration Duloxetine HCl 30 mg 10/14/17 09:00 10/15/17 08:36 Cymbalta PO 12/13/17 08:59 30 mg DAILY YAMILETH Administration Protocol Gabapentin 100 mg 10/14/17 09:00 10/15/17 14:56 Neurontin PO 12/13/17 08:59 100 mg TID YAMILETH Administration Heparin Sodium (Porcine) 5,000 units 10/14/17 09:00 10/15/17 08:37 Heparin SUBQ 12/13/17 08:59 5,000 units Q12HR YAMILETH Administration Magnesium Sulfate 2 gm in 50 mls @ 25 mls/hr 10/13/17 23:50 Magnesium Sulfate Premix IV 12/12/17 23:49 DAILY PRN Magnesium level less than 1.6 Sodium Chloride 1,000 mls @ 80 mls/hr 10/14/17 00:30 10/15/17 11:26 Nacl 0.9% IV 12/13/17 00:29 80 mls/hr .[id number] YAMILETH Administration Lorazepam 1 mg 10/13/17 23:50 10/14/17 21:59 Ativan IVP 12/12/17 23:49 1 mg Q4HR PRN Administration Anxiety Protocol Magnesium Oxide 400 mg 10/13/17 23:50 Mag-Oxide PO 12/12/17 23:49 BID PRN Mg less than 1.9 Metoprolol Tartrate 25 mg 10/14/17 09:00 10/15/17 08:36 Lopressor PO 12/13/17 08:59 25 mg BID YAMILETH Administration Morphine Sulfate 1 mg 10/13/17 23:50 Morphine IVP 12/12/17 23:49 Q4HR PRN Severe Pain Ondansetron HCl 4 mg 10/13/17 23:50 Zofran IVP 12/12/17 23:49 Q6H PRN Nausea / Vomiting Potassium Chloride 40 meq 10/13/17 23:50 Klor-Con PO 12/12/17 23:49 DAILY PRN k level less than 3.5 Quetiapine Fumarate 12.5 mg 10/14/17 21:00 10/14/17 20:20 Seroquel PO 12/13/17 20:59 12.5 mg HS YAMILETH Administration Protocol Simvastatin 20 mg 10/14/17 21:00 10/14/17 20:20 Zocor PO 12/13/17 20:59 20 mg HS YAMILETH Administration Protocol Zolpidem Tartrate 10 mg 10/13/17 23:50 Ambien PO 12/12/17 23:49 HS PRN Insomnia Review of Systems: A 12 point ROS was reviewed with the pertinent positive and negatives noted in the HPI. Social History Smoking Status Unknown if ever smoked Family Medical History Family Medical History Start: 10/13/17 23: 25 Freq: ONCE Status: Active Document 10/13/17 23:45 JAD (Rec: 10/14/17 01:48 JAD [id number]) Family Medical History Mother History Unknown Yes Physical Exam: General: lethargic in nad HEENT: head nc/at, sclerae anicteric, op moist Neck: supple Cardio: rrr Respiratory: cta b Abdominal: soft ntnd Genital/Urinary: not done Extremities: no edema Neurological: lethargic Assessment: 1. DIANA ON CKD 2. ALOC 3. ACUTE HYPOXIC RESP FAILURE 4. ANEMIA ACUTE ON CHRONIC WITH CKD 5. HTN W CKD 6. ALZHEIMER DEMENTIA Plan: MONITOR RENAL FXN CLOSELY AVOID NEPHROTOXINS IV FLUIDS CHECK IRON STUDIES ANEMIA WORKUP Signed, Katiuska Winkler [id number]
[2017-10-16] MEDS: Albuterol/Ipratropium Neb 3 ML AERS HHN SCH ×6 (02:51→22:15)
[2017-10-16 05:40] LABS: LYMPHOCYTE ABSOLUTE 2.4 Th/cmm (1.5-3.0); MEAN PLATELET VOLUME 7.8 fl
[2017-10-16 05:56] LABS: BUN - UREA NITROGEN 39 mg/dL (7-25); CALCIUM SERUM 9.5 mg/dL (8.6-10.3); CARBON DIOXIDE 19.1 mEq/L (21.0-31.0); CHLORIDE 115 mEq/L (98-107); CREATININE - SERUM 2.9 mg/dL (0.6-1.2); GLUCOSE 88 mg/dL (70-105); POTASSIUM SERUM 4.1 mEq/L (3.5-5.1); SODIUM SERUM 141 mEq/L (136-145)
[2017-10-16 05:57] LABS: % BASOPHILS 0.4 % (0.0-2.0); % EOSINOPHILS 14.1 % (0.0-5.0); % LYMPHOCYTES 22.4 % (20.0-50.0); % MONOCYTES 8.3 % (2.0-10.0); % NEUTROPHILS 54.8 % (40.0-80.0); HEMATOCRIT 24.3 % (41.0-60); HEMOGLOBIN 8.2 gm/dL (12-16); MEAN CELL VOLUME 95.7 fl (81-100); MEAN CORPUSCULAR HEMOGLOBIN 32.1 pg (27.0-31.0); MEAN CORPUSCULAR HGB CONC 33.5 pg (28.0-36.0); PLATELET COUNT 293 Th/cmm (150-400); RED BLOOD COUNT 2.54 Mil/cmm (3.80-5.20)
[2017-10-16 05:58] LABS: EOSINOPHILE ABSOLUTE 1.5 Th/cmm (0.1-0.4); MONOCYTE ABSOLUTE 0.9 Th/cmm (0.3-1.0); NEUTROPHILE ABSOLUTE 5.7 Th/cmm (1.8-8.0); WHITE BLOOD COUNT 10.5 Th/cmm (4.8-10.8)
--- NOTE | 2017-10-16 08:59 | General Progress Note ---
Subjective - Review of Systems Service Date: 10/16/17 Subjective: Pt seen and eval. On O2 and breathing tx. Her O2 sats have been fluctuating. Seen by pulm, the physician covering for Dr. Barry. CXR doesn't show any PNA. Pt is weak. No n,v,d or cp. Has episodes of psychosis. Seen by Dr. Rogers, and is on Seroquel now. Objective - Results Result Diagrams: 10/16/17 04:50 10/16/17 04:50 Recent Labs: Laboratory Last Values WBC 10.5 Th/cmm (4.8-10.8) D 10/16/17 04:50 RBC 2.54 Mil/cmm (3.80-5.20) L 10/16/17 04:50 Hgb 8.2 gm/dL (12-16) L 10/16/17 04:50 Hct 24.3 % (41.0-60) L 10/16/17 04:50 MCV 95.7 fl (81-100) 10/16/17 04:50 MCH 32.1 pg (27.0-31.0) H 10/16/17 04:50 MCHC Differential 33.5 pg (28.0-36.0) 10/16/17 04:50 RDW 14.0 % (11.5-20.0) 10/16/17 04:50 Plt Count 293 Th/cmm (150-400) 10/16/17 04:50 MPV 7.8 fl 10/16/17 04:50 Neutrophils % 54.8 % (40.0-80.0) 10/16/17 04:50 Lymphocytes % 22.4 % (20.0-50.0) 10/16/17 04:50 Monocytes % 8.3 % (2.0-10.0) 10/16/17 04:50 Eosinophils % 14.1 % (0.0-5.0) H 10/16/17 04:50 Basophils % 0.4 % (0.0-2.0) 10/16/17 04:50 PT 10.3 SECONDS (9.5-11.5) 10/13/17 22:00 INR 0.99 (0.5-1.4) 10/13/17 22:00 PTT (Actin FS) 24.7 SECONDS (26.0-38.0) L 10/13/17 22:00 Specimen Source Arterial 10/15/17 08:27 Sample Site Right Radial 10/15/17 08:27 pH 7.30 (7.35-7.45) L 10/15/17 08:27 pCO2 43.0 mmHg (35.0-45.0) 10/15/17 08:27 pO2 65.0 mmHg (80.0-100.0) L 10/15/17 08:27 HCO3 20.8 mEq/L (20.0-26.0) 10/15/17 08:27 Base Excess -5.1 mEq/L (-3.0-3.0) L 10/15/17 08:27 O2 Saturation 90.0 % (92.0-100.0) L 10/15/17 08:27 Song Test POSITIVE 10/15/17 08:27 Vent Rate NA 10/15/17 08:27 Inspired O2 21 10/15/17 08:27 Tidal Volume NA 10/15/17 08:27 PEEP NA 10/15/17 08:27 Pressure (ins/psv/peep) NA 10/15/17 08:27 Critical Value LULU BRADFORD 10/15/17 08:27 Sodium 141 mEq/L (136-145) 10/16/17 04:50 Potassium 4.1 mEq/L (3.5-5.1) 10/16/17 04:50 Chloride 115 mEq/L (98-107) H 10/16/17 04:50 Carbon Dioxide 19.1 mEq/L (21.0-31.0) L 10/16/17 04:50 Anion Gap 11.0 (7.0-16.0) 10/16/17 04:50 BUN 39 mg/dL (7-25) H 10/16/17 04:50 Creatinine 2.9 mg/dL (0.6-1.2) H 10/16/17 04:50 Est GFR ( Amer) TNP 10/16/17 04:50 Est GFR (Non-Af Amer) TNP 10/16/17 04:50 BUN/Creatinine Ratio 13.4 10/16/17 04:50 Glucose 88 mg/dL (70-105) 10/16/17 04:50 POC Glucose 92 MG/DL (70 - 105) 10/14/17 00:15 Hemoglobin A1c % 5.5 % (4.0-6.0) 10/13/17 22:00 Calcium 9.5 mg/dL (8.6-10.3) 10/16/17 04:50 Magnesium 2.2 mg/dL (1.9-2.7) 10/13/17 22:00 Total Bilirubin 0.3 mg/dL (0.3-1.0) 10/13/17 22:00 AST 11 U/L (13-39) L 10/13/17 22:00 ALT 8 U/L (7-52) 10/13/17 22:00 Alkaline Phosphatase 53 U/L (34-104) 10/13/17 22:00 Troponin I 0.01 ng/mL (0.01-0.05) 10/13/17 22:00 Total Protein 7.3 gm/dL (6.0-8.3) 10/13/17 22:00 Albumin 4.2 gm/dL (3.7-5.3) 10/13/17 22:00 Globulin 3.1 gm/dL 10/13/17 22:00 Albumin/Globulin Ratio 1.4 (1.0-1.8) 10/13/17 22:00 Triglycerides 74 mg/dL (<150) 10/13/17 22:00 Cholesterol 84 mg/dL (<200) 10/13/17 22:00 LDL Cholesterol Direct 35 mg/dL (75-193) L 10/13/17 22:00 HDL Cholesterol 43 mg/dL (23-92) 10/13/17 22:00 TSH 1.16 uIU/ml (0.34-5.60) 10/13/17 22:00 Urine Source RANDOM 10/14/17 06:15 Urine Color YELLOW 10/14/17 06:15 Urine Clarity CLEAR (CLEAR) 10/14/17 06:15 Urine pH 6.0 (4.6 - 8.0) 10/14/17 06:15 Ur Specific [place] 1.020 (1.005-1.030) 10/14/17 06:15 Urine Protein 100 mg/dL (NEGATIVE) H 10/14/17 06:15 Urine Glucose (UA) NEGATIVE mg/dL (NEGATIVE) 10/14/17 06:15 Urine Ketones NEGATIVE mg/dL (NEGATIVE) 10/14/17 06:15 Urine Blood NEGATIVE (NEGATIVE) 10/14/17 06:15 Urine Nitrate NEGATIVE (NEGATIVE) 10/14/17 06:15 Urine Bilirubin NEGATIVE (NEGATIVE) 10/14/17 06:15 Urine Urobilinogen 0.2 E.U./dL (0.2 - 1.0) 10/14/17 06:15 Ur Leukocyte Esterase NEGATIVE (NEGATIVE) 10/14/17 06:15 Urine RBC NONE SEEN /hpf (0-5) 10/14/17 06:15 Urine WBC 0-2 /hpf (0-5) 10/14/17 06:15 Ur Epithelial Cells OCCASIONAL /lpf (FEW) 10/14/17 06:15 Urine Bacteria FEW /hpf (NONE SEEN) 10/14/17 06:15 - Physical Exam Vitals and I&O: Vital Signs Temp 98 F 10/16/17 03:54 Pulse 82 10/16/17 08:36 Resp 17 10/16/17 08:20 BP 158/61 10/16/17 08:36 Pulse Ox 95 10/16/17 07:55 Intake & Output 10/15/17 10/16/17 10/16/17 18:59 06:59 18:59 Intake Total 1536 949.333 Balance 1536 949.333 Weight (lbs) 60.781 kg Intake: Intake, IV Amount 936 949.333 Sodium Chloride 0.9% 1, 936 949.333 000 ml @ 80 mls/hr IV . [id number] [facility] Rx#:[id number] Oral 600 Other: # Voids 3 # Bowel Movements 1 Weight Source Bedscale Active Medications: Current Medications Acetaminophen (Tylenol) 650 mg PO Q6H PRN PRN Reason: HEADACHE/TEMP ABOVE 100F Stop: 12/12/17 23:49 Albuterol/Ipratropium (Duoneb Neb) 3 ml HHN Q4HRT [facility] Stop: 12/13/17 02:59 Last Admin: 10/16/17 07:53 Dose: 3 ml Amlodipine Besylate (Norvasc) 10 mg PO DAILY [facility] Stop: 12/13/17 08:59 Last Admin: 10/16/17 08:36 Dose: 10 mg Docusate Sodium (Colace) 100 mg PO BID PRN PRN Reason: Constipation Stop: 12/12/17 23:49 Donepezil HCl (Aricept) 5 mg PO HS [facility] Stop: 12/13/17 20:59 Last Admin: 10/15/17 20:23 Dose: 5 mg Duloxetine HCl (Cymbalta) 30 mg PO DAILY [facility] PRN Reason: Protocol Stop: 12/13/17 08:59 Last Admin: 10/16/17 08:36 Dose: 30 mg Gabapentin (Neurontin) 100 mg PO TID [facility] Stop: 12/13/17 08:59 Last Admin: 10/16/17 08:36 Dose: 100 mg Heparin Sodium (Porcine) (Heparin) 5,000 units SUBQ Q12HR [facility] Stop: 12/13/17 08:59 Last Admin: 10/16/17 08:36 Dose: 5,000 units Magnesium Sulfate (Magnesium Sulfate Premix) 2 gm in 50 mls @ 25 mls/hr IV DAILY PRN PRN Reason: Magnesium level less than 1.6 Stop: 12/12/17 23:49 Sodium Chloride (Nacl 0.9%) 1,000 mls @ 80 mls/hr IV .[id number] [facility] Stop: 12/13/17 00:29 Last Admin: 10/15/17 23:18 Dose: 80 mls/hr Lorazepam (Ativan) 1 mg IVP Q4HR PRN; Protocol PRN Reason: Anxiety Stop: 12/12/17 23:49 Last Admin: 10/15/17 19:55 Dose: 1 mg Magnesium Oxide (Mag-Oxide) 400 mg PO BID PRN PRN Reason: Mg less than 1.9 Stop: 12/12/17 23:49 Metoprolol Tartrate (Lopressor) 25 mg PO BID [facility] Stop: 12/13/17 08:59 Last Admin: 10/16/17 08:35 Dose: 25 mg Morphine Sulfate (Morphine) 1 mg IVP Q4HR PRN PRN Reason: Severe Pain Stop: 12/12/17 23:49 Ondansetron HCl (Zofran) 4 mg IVP Q6H PRN PRN Reason: Nausea / Vomiting Stop: 12/12/17 23:49 Potassium Chloride (Klor-Con) 40 meq PO DAILY PRN PRN Reason: k level less than 3.5 Stop: 12/12/17 23:49 Quetiapine Fumarate (Seroquel) 12.5 mg PO HS [facility] PRN Reason: Protocol Stop: 12/13/17 20:59 Last Admin: 10/15/17 20:24 Dose: 12.5 mg Simvastatin (Zocor) 20 mg PO HS [facility] PRN Reason: Protocol Stop: 12/13/17 20:59 Last Admin: 10/15/17 20:23 Dose: 20 mg Zolpidem Tartrate (Ambien) 10 mg PO HS PRN PRN Reason: Insomnia Stop: 12/12/17 23:49 General: No acute distress HEENT: Atraumatic, PERRLA Neck: Supple, JVD Cardiovascular: Regular rate, Normal S1, Normal S2 Lungs: Other (decreased BS bl) Abdomen: Bowel sounds, Soft Assessment/Plan - Assessment Assessment: Acute resp fail COPD exac Psychosis VMN Anemia of Ch Ill Neuropathic Pain KITTY with exac - Plan Plan: On Seroquel now per psych. Seen by pulm. On O2 and bronchodilators. Repeat ABG done and reviewed. FU on chem panel. On iv fluids. No pna on cxr.
--- NOTE | 2017-10-16 10:18 | General Progress Note ---
Subjective - Review of Systems Service Date: 10/16/17 Subjective: Denies c/o, alert and awake. Objective - Results Result Diagrams: 10/16/17 04:50 10/16/17 04:50 Recent Labs: Laboratory Last Values WBC 10.5 Th/cmm (4.8-10.8) D 10/16/17 04:50 RBC 2.54 Mil/cmm (3.80-5.20) L 10/16/17 04:50 Hgb 8.2 gm/dL (12-16) L 10/16/17 04:50 Hct 24.3 % (41.0-60) L 10/16/17 04:50 MCV 95.7 fl (81-100) 10/16/17 04:50 MCH 32.1 pg (27.0-31.0) H 10/16/17 04:50 MCHC Differential 33.5 pg (28.0-36.0) 10/16/17 04:50 RDW 14.0 % (11.5-20.0) 10/16/17 04:50 Plt Count 293 Th/cmm (150-400) 10/16/17 04:50 MPV 7.8 fl 10/16/17 04:50 Neutrophils % 54.8 % (40.0-80.0) 10/16/17 04:50 Lymphocytes % 22.4 % (20.0-50.0) 10/16/17 04:50 Monocytes % 8.3 % (2.0-10.0) 10/16/17 04:50 Eosinophils % 14.1 % (0.0-5.0) H 10/16/17 04:50 Basophils % 0.4 % (0.0-2.0) 10/16/17 04:50 PT 10.3 SECONDS (9.5-11.5) 10/13/17 22:00 INR 0.99 (0.5-1.4) 10/13/17 22:00 PTT (Actin FS) 24.7 SECONDS (26.0-38.0) L 10/13/17 22:00 Specimen Source Arterial 10/15/17 08:27 Sample Site Right Radial 10/15/17 08:27 pH 7.30 (7.35-7.45) L 10/15/17 08:27 pCO2 43.0 mmHg (35.0-45.0) 10/15/17 08:27 pO2 65.0 mmHg (80.0-100.0) L 10/15/17 08:27 HCO3 20.8 mEq/L (20.0-26.0) 10/15/17 08:27 Base Excess -5.1 mEq/L (-3.0-3.0) L 10/15/17 08:27 O2 Saturation 90.0 % (92.0-100.0) L 10/15/17 08:27 Song Test POSITIVE 10/15/17 08:27 Vent Rate NA 10/15/17 08:27 Inspired O2 21 10/15/17 08:27 Tidal Volume NA 10/15/17 08:27 PEEP NA 10/15/17 08:27 Pressure (ins/psv/peep) NA 10/15/17 08:27 Critical Value LUL[facility]AD[facility] 10/15/17 08:27 Sodium 141 mEq/L (136-145) 10/16/17 04:50 Potassium 4.1 mEq/L (3.5-5.1) 10/16/17 04:50 Chloride 115 mEq/L (98-107) H 10/16/17 04:50 Carbon Dioxide 19.1 mEq/L (21.0-31.0) L 10/16/17 04:50 Anion Gap 11.0 (7.0-16.0) 10/16/17 04:50 BUN 39 mg/dL (7-25) H 10/16/17 04:50 Creatinine 2.9 mg/dL (0.6-1.2) H 10/16/17 04:50 Est GFR ( Amer) TNP 10/16/17 04:50 Est GFR (Non-Af Amer) TNP 10/16/17 04:50 BUN/Creatinine Ratio 13.4 10/16/17 04:50 Glucose 88 mg/dL (70-105) 10/16/17 04:50 POC Glucose 92 MG/DL (70 - 105) 10/14/17 00:15 Hemoglobin A1c % 5.5 % (4.0-6.0) 10/13/17 22:00 Calcium 9.5 mg/dL (8.6-10.3) 10/16/17 04:50 Magnesium 2.2 mg/dL (1.9-2.7) 10/13/17 22:00 Total Bilirubin 0.3 mg/dL (0.3-1.0) 10/13/17 22:00 AST 11 U/L (13-39) L 10/13/17 22:00 ALT 8 U/L (7-52) 10/13/17 22:00 Alkaline Phosphatase 53 U/L (34-104) 10/13/17 22:00 Troponin I 0.01 ng/mL (0.01-0.05) 10/13/17 22:00 Total Protein 7.3 gm/dL (6.0-8.3) 10/13/17 22:00 Albumin 4.2 gm/dL (3.7-5.3) 10/13/17 22:00 Globulin 3.1 gm/dL 10/13/17 22:00 Albumin/Globulin Ratio 1.4 (1.0-1.8) 10/13/17 22:00 Triglycerides 74 mg/dL (<150) 10/13/17 22:00 Cholesterol 84 mg/dL (<200) 10/13/17 22:00 LDL Cholesterol Direct 35 mg/dL (75-193) L 10/13/17 22:00 HDL Cholesterol 43 mg/dL (23-92) 10/13/17 22:00 TSH 1.16 uIU/ml (0.34-5.60) 10/13/17 22:00 Urine Source RANDOM 10/14/17 06:15 Urine Color YELLOW 10/14/17 06:15 Urine Clarity CLEAR (CLEAR) 10/14/17 06:15 Urine pH 6.0 (4.6 - 8.0) 10/14/17 06:15 Ur Specific [place] 1.020 (1.005-1.030) 10/14/17 06:15 Urine Protein 100 mg/dL (NEGATIVE) H 10/14/17 06:15 Urine Glucose (UA) NEGATIVE mg/dL (NEGATIVE) 10/14/17 06:15 Urine Ketones NEGATIVE mg/dL (NEGATIVE) 10/14/17 06:15 Urine Blood NEGATIVE (NEGATIVE) 10/14/17 06:15 Urine Nitrate NEGATIVE (NEGATIVE) 10/14/17 06:15 Urine Bilirubin NEGATIVE (NEGATIVE) 10/14/17 06:15 Urine Urobilinogen 0.2 E.U./dL (0.2 - 1.0) 10/14/17 06:15 Ur Leukocyte Esterase NEGATIVE (NEGATIVE) 10/14/17 06:15 Urine RBC NONE SEEN /hpf (0-5) 10/14/17 06:15 Urine WBC 0-2 /hpf (0-5) 10/14/17 06:15 Ur Epithelial Cells OCCASIONAL /lpf (FEW) 10/14/17 06:15 Urine Bacteria FEW /hpf (NONE SEEN) 10/14/17 06:15 - Physical Exam Vitals and I&O: Vital Signs Temp 97.5 F 10/16/17 09:00 Pulse 82 10/16/17 09:00 Resp 17 10/16/17 09:00 BP 158/61 10/16/17 09:00 Pulse Ox 100 10/16/17 09:00 Intake & Output 10/15/17 10/16/17 10/16/17 18:59 06:59 18:59 Intake Total 1536 949.333 Balance 1536 949.333 Weight (lbs) 60.781 kg Intake: Intake, IV Amount 936 949.333 Sodium Chloride 0.9% 1, 936 949.333 000 ml @ 80 mls/hr IV . [id number] [facility] Rx#:[id number] Oral 600 Other: # Voids 3 # Bowel Movements 1 Weight Source Bedscale Active Medications: Current Medications Acetaminophen (Tylenol) 650 mg PO Q6H PRN PRN Reason: HEADACHE/TEMP ABOVE 100F Stop: 12/12/17 23:49 Albuterol/Ipratropium (Duoneb Neb) 3 ml HHN Q4HRT [facility] Stop: 12/13/17 02:59 Last Admin: 10/16/17 07:53 Dose: 3 ml Amlodipine Besylate (Norvasc) 10 mg PO DAILY [facility] Stop: 12/13/17 08:59 Last Admin: 10/16/17 08:36 Dose: 10 mg Docusate Sodium (Colace) 100 mg PO BID PRN PRN Reason: Constipation Stop: 12/12/17 23:49 Donepezil HCl (Aricept) 5 mg PO HS [facility] Stop: 12/13/17 20:59 Last Admin: 10/15/17 20:23 Dose: 5 mg Duloxetine HCl (Cymbalta) 30 mg PO DAILY [facility] PRN Reason: Protocol Stop: 12/13/17 08:59 Last Admin: 10/16/17 08:36 Dose: 30 mg Gabapentin (Neurontin) 100 mg PO TID [facility] Stop: 12/13/17 08:59 Last Admin: 10/16/17 08:36 Dose: 100 mg Heparin Sodium (Porcine) (Heparin) 5,000 units SUBQ Q12HR [facility] Stop: 12/13/17 08:59 Last Admin: 10/16/17 08:36 Dose: 5,000 units Magnesium Sulfate (Magnesium Sulfate Premix) 2 gm in 50 mls @ 25 mls/hr IV DAILY PRN PRN Reason: Magnesium level less than 1.6 Stop: 12/12/17 23:49 Sodium Chloride (Nacl 0.9%) 1,000 mls @ 80 mls/hr IV .[id number] [facility] Stop: 12/13/17 00:29 Last Admin: 10/15/17 23:18 Dose: 80 mls/hr Lorazepam (Ativan) 1 mg IVP Q4HR PRN; Protocol PRN Reason: Anxiety Stop: 12/12/17 23:49 Last Admin: 10/15/17 19:55 Dose: 1 mg Magnesium Oxide (Mag-Oxide) 400 mg PO BID PRN PRN Reason: Mg less than 1.9 Stop: 12/12/17 23:49 Metoprolol Tartrate (Lopressor) 25 mg PO BID [facility] Stop: 12/13/17 08:59 Last Admin: 10/16/17 08:35 Dose: 25 mg Morphine Sulfate (Morphine) 1 mg IVP Q4HR PRN PRN Reason: Severe Pain Stop: 12/12/17 23:49 Ondansetron HCl (Zofran) 4 mg IVP Q6H PRN PRN Reason: Nausea / Vomiting Stop: 12/12/17 23:49 Potassium Chloride (Klor-Con) 40 meq PO DAILY PRN PRN Reason: k level less than 3.5 Stop: 12/12/17 23:49 Quetiapine Fumarate (Seroquel) 12.5 mg PO [facility] PRN Reason: Protocol Stop: 12/13/17 20:59 Last Admin: 10/15/17 20:24 Dose: 12.5 mg Simvastatin (Zocor) 20 mg PO [facility] PRN Reason: Protocol Stop: 12/13/17 20:59 Last Admin: 10/15/17 20:23 Dose: 20 mg Zolpidem Tartrate (Ambien) 10 mg PO HS PRN PRN Reason: Insomnia Stop: 12/12/17 23:49 General: No acute distress HEENT: Atraumatic, PERRLA Neck: Supple, JVD Cardiovascular: Regular rate, Normal S1, Normal S2 Lungs: Other (decreased BS bl) Abdomen: Bowel sounds, Soft Assessment/Plan - Assessment Assessment: DIANA, improving AMS, unclear etiology. no organic cause so far identified - Plan Plan: continue current rate of IVF BP controlled f/u renal US f/u urine indices, will attempt to clarify if CKD vs DIANA
[2017-10-16] MEDS: Sodium Chloride 0.9% 1,000 ML IV SCH ×2 (10:36→20:56)
--- NOTE | 2017-10-16 12:34 | Diagnostic Imaging Report ---
Renal ultrasound HISTORY: Abnormal renal function tests Right kidney measures approximately 9.5 x 4.9 x 4.9 cm. There is a 1.5 cm sonolucent lesion in the upper pole consistent with a cyst. No hydronephrosis. There is suboptimal delineation the margins of the left kidney that appears slightly decreased in size (8.7 x 4.0 x 4.6 cm). No focal lesions. No hydronephrosis. No intraluminal abnormality seen within the urinary bladder. There is excess post void urine residual. IMPRESSION: 1. Findings consistent with a right renal cyst 2. No hydronephrosis 3. Increased post void urine residual
[2017-10-17] MEDS: Albuterol/Ipratropium Neb 3 ML AERS HHN SCH ×6 (02:20→23:02)
--- NOTE | 2017-10-17 02:44 | Progress Notes ---
DATE: 10/16/2017 PSYCHIATRIC PROGRESS NOTE SUBJECTIVE: Staff was spoken to. The patient is interviewed. Mood is noted to be irritable. Affect is constricted. Insight and judgment are noted to be still impaired. Impulse control is very poor. The patient has been getting easily frustrated. The patient has to be given a dose of Ativan to calm her down. Whenever she is awake, she is creating more of a problem, but at this time, she is being maintained with a low-dose of Seroquel. ASSESSMENT: The patient is still psychotic and impulsive. PLAN: To continue the patient with the supportive therapy. Encouraged the patient to verbalize the concerns rather than to act out. JOB# [id number]
[2017-10-17 05:21] LABS: RED BLOOD COUNT 2.54 Mil/cmm (3.80-5.20)
[2017-10-17 05:29] LABS: HEMATOCRIT 24.2 % (41.0-60); HEMOGLOBIN 8.1 gm/dL (12-16); MANUAL DIFF REQUIRED? YES; MEAN CELL VOLUME 95.3 fl (81-100); MEAN CORPUSCULAR HEMOGLOBIN 31.9 pg (27.0-31.0); MEAN CORPUSCULAR HGB CONC 33.5 pg (28.0-36.0); MEAN PLATELET VOLUME 7.7 fl; PLATELET COUNT 281 Th/cmm (150-400); RED CELL DISTRIBUTION WIDTH 14.2 % (11.5-20.0); WHITE BLOOD COUNT 8.7 Th/cmm (4.8-10.8)
[2017-10-17 05:36] LABS: ANION GAP 9.1 (7.0-16.0); BUN - UREA NITROGEN 31 mg/dL (7-25); CALCIUM SERUM 9.3 mg/dL (8.6-10.3); CARBON DIOXIDE 19.2 mEq/L (21.0-31.0); CHLORIDE 117 mEq/L (98-107); CREATININE - SERUM 2.8 mg/dL (0.6-1.2); GLUCOSE 87 mg/dL (70-105); POTASSIUM SERUM 4.3 mEq/L (3.5-5.1); SODIUM SERUM 141 mEq/L (136-145)
[2017-10-17 06:10] LABS: TOTAL CELLS COUNTED 100
[2017-10-17 06:11] LABS: BASOPHIL 1 % (0-3); EOSINOPHIL 12 % (0-5); LYMPHOCYTE 34 % (20-50); MONOCYTE 7 % (2-10); NEUTROPHILS 46 % (40-80)
[2017-10-17] MEDS: Sodium Chloride 0.9% 1,000 ML IV SCH (10:58)
--- NOTE | 2017-10-17 12:36 | Discharge Summary ---
DATE OF DISCHARGE: 10/17/2017 DISPOSITION: To [facility] Unit of the hospital. CAUSE OF ADMISSION: The patient is a confused 81-year-old female. She is a patient of mine at [facility]. She has history of renal insufficiency along with mood disorder, depression and neuropathic pain. She became more psychotic. At the facility, she was agitated and was experiencing worsening aggression towards the staff and she was also found to be hallucinating. She has decreased appetite and overall decline. She was also more lethargic. She was sent to the hospital where she was found to have acute respiratory failure and acute renal failure. ADMITTING DIAGNOSES: 1. Acute respiratory failure. 2. Anemia of chronic illness. 3. Vasomotor nephropathy. 4. Hypertension. 5. Neuropathic pain. 6. Alzheimer dementia with exacerbation. 7. Psychosis. DISCHARGE DIAGNOSES: 1. Acute respiratory failure. 2. Anemia of chronic illness. 3. Vasomotor nephropathy. 4. Hypertension. 5. Neuropathic pain. 6. Alzheimer dementia with exacerbation. 7. Psychosis. SUMMARY OF HOSPITAL COURSE: The patient was placed on breathing treatments of [place]. Dr. Madison was consulted. She also had renal failure. She was placed on IV fluids. Renal function has been improving. She is back to her baseline now. A repeat ABG was done, which showed a significant improvement in the pO2. Dr. Madison is the woodenware assembler on the case. She has been on heparin for DVT prophylaxis. Dr. Rogers has been seeing the patient for the psychosis. She has been medically cleared to be transferred to [facility] the [facility]. PHYSICAL EXAMINATION: VITAL SIGNS: Temperature 97.4 degrees, heart rate is 81, respirations 18, blood pressure 164/64. Currently, in no pain. GENERAL: No acute distress. She is awake, but has labile mood. PSYCHIATRIC: She has history of psychosis and she has been acting out and has been aggressive and yelling at times. NECK: Trachea is midline. CARDIOVASCULAR: Regular rate and rhythm. SKIN: No rashes. NEUROLOGIC: Stable. LABORATORY DATA: Sodium 141, potassium 4.3, chloride 117, bicarbonate 19.2, BUN 31, creatinine is 2.8, glucose is 87. White count is 8.7; hemoglobin is 8.1; platelet count is 281,000. PROGNOSIS: Fair. ACTIVITY: As tolerated. DISPOSITION: She is being transferred to [facility] of the hospital. CONSULTS: Dr. Rogers for Psychiatry, Dr. Padilla for Nephrology and Dr. Madison for Pulmonary. PROGNOSIS: Fair. DIET: Cardiac and Renal. JOB# [id number]
[2017-10-17 13:11] LABS: FERRITIN 503 ng/mL (15-150); IRON LC 78 ug/dL (27-139); TIBC (LC) 201 ug/dL (250-450); UIBC 123 ug/dL (118-369)
--- NOTE | 2017-10-17 13:40 | Diagnostic Imaging Report ---
Radionuclide perfusion lung scan HISTORY: Shortness of breath 5.6 mCi technetium macroaggregated albumin was used in the exam. A ventilation scan could not be performed due to patient's limited medical condition. There is uniform activity throughout both lungs. No focal abnormalities. No segmental defects. IMPRESSION: Negative perfusion examination (low probability of pulmonary embolism)
[2017-10-18] MEDS: Albuterol/Ipratropium Neb 3 ML AERS HHN SCH (03:55)
== END 2017-10-18 05:15 | DRG 682 ==
LOC: ER 21:55 → MSI 23:10
PROVIDERS: ADMIT General Practice; ATTEND General Practice
DX: N17.0 Acute kidney failure with tubular necrosis (principal); J96.01 Acute respiratory failure with hypoxia; F02.81 Dementia in other diseases classified elsewhere, unspecified severity, with behavioral disturbance; J44.1 Chronic obstructive pulmonary disease with (acute) exacerbation; I13.11 Hypertensive heart and chronic kidney disease without heart failure, with stage 5 chronic kidney disease, or end stage renal disease; N18.6 End stage renal disease; G30.9 Alzheimer's disease, unspecified; E86.0 Dehydration; G62.9 Polyneuropathy, unspecified; E78.5 Hyperlipidemia, unspecified; M19.90 Unspecified osteoarthritis, unspecified site; G47.00 Insomnia, unspecified; Z66 Do not resuscitate; F29 Unspecified psychosis not due to a substance or known physiological condition; D63.1 Anemia in chronic kidney disease; F31.9 Bipolar disorder, unspecified; E78.00 Pure hypercholesterolemia, unspecified; I25.10 Atherosclerotic heart disease of native coronary artery without angina pectoris; Z86.73 Personal history of transient ischemic attack (TIA), and cerebral infarction without residual deficits
CPT/HCPCS: 36415-UA; 36600-90; 71045-TC; 76770-TC; 80048-TC; 80053-TC; 80061-TC; 81001-TC; 82570-TC; 82728-90; 82803-TC; 82948-90; 83036-90; 83540-90; 83550-90; 83735-TC; 84156-TC; 84443-TC; 84484-TC; 85007-TC; 85025-TC; 85027-TC; 85610-TC; 85730-TC; 86592-TC; 93005; 94640; 94760; A9540; A9567; J1644; J2060; J7030; Z7610

== ENCOUNTER 2017-10-18 05:15 | Inpatient (IN) | payer MEDICARE, OTHER ==
[2017-10-18] MEDS ORDERED: Maalox 30 mL Cup PO PRN (08:25)
[2017-10-18] MEDS ORDERED: Magnesium Hydroxide (MOM) 30 mL UDC PO PRN (08:25)
[2017-10-18] MEDS: Multivitamin Tab PO SCH (09:00)
[2017-10-18] MEDS ORDERED: Acetaminophen 500 MG TAB PO PRN (09:58)
--- NOTE | 2017-10-18 10:29 | History & Physical ---
ADMIT DATE: 10/18/2017 HISTORY OF PRESENT ILLNESS: The patient is a confused 81-year-old female. She is a patient of mine at [facility]. She has history of chronic renal failure along with mood disorder, depression, neuropathic pain. She was experiencing worsening psychosis at the facility. She was more agitated and was hallucinating as well. She has decreased appetite and overall decline. She was also more lethargic. She was sent to the hospital where she was found to have acute respiratory failure and acute renal failure. PAST MEDICAL HISTORY: Significant for chronic renal insufficiency, hypertension, anemia, Alzheimer's dementia, neuropathy, mood disorder, dyslipidemia. SOCIAL HISTORY: No history of alcohol, tobacco, or drug abuse. She lives at [facility]. SURGICAL HISTORY: No recent major surgeries. FAMILY HISTORY: Noncontributory. ALLERGIES: No known drug allergies. MEDICATIONS: I reconciled and reviewed all the medications. REVIEW OF SYSTEMS: GENERAL: Positive recent fatigue and decreased appetite. PSYCHIATRIC: Positive for psychosis and agitation. HEENT: No recent head trauma or change in vision, taste, hearing, or smell. NEUROLOGIC: No history of stroke or seizure. SKIN: No recent rashes. NEPHRO: She has history of chronic renal insufficiency. MUSCULOSKELETAL: Positive for unsteady gait. RESPIRATORY: Positive for recent shortness of breath and acute respiratory failure. GENITOURINARY: No recent hematuria. PHYSICAL EXAMINATION: VITAL SIGNS: Temperature is 98.6 degrees, heart rate is 86, respirations 18, blood pressure 126/94. Currently, no pain. GENERAL: No acute distress, awake, but not alert. HEENT: No acute issues. NECK: Trachea is midline. CARDIOVASCULAR: Regular rate and rhythm. SKIN: No rashes. PSYCHIATRIC: She has labile mood and has episodes of psychosis. EXTREMITIES: No edema. MUSCULOSKELETAL: Decreased muscle strength in lower extremities. RESPIRATORY: Decreased breath sounds bilaterally, but no rales. NEUROLOGIC: No evidence of acute stroke or seizure activity. LABORATORY DATA: I have ordered a CBC and CMP. ASSESSMENT: 1. Vasomotor nephropathy. 2. Psychosis. 3. Acute respiratory failure. 4. Hypertension. 5. Neuropathic pain. 6. Dementia, Alzheimer's type with exacerbation. PLAN: The patient is on DuoNeb breathing treatments t.i.d. Continue nasal cannula 2 liters O2. Follow up on CBC and CMP. Continue inpatient psychiatric care. Continue breathing treatments and blood pressure medications have been reviewed and reconciled. Avoid nephrotoxic drugs. [facility]# [id number]
[2017-10-18 11:19] LABS: % BASOPHILS 0.5 % (0.0-2.0); % LYMPHOCYTES 16.8 % (20.0-50.0); % MONOCYTES 7.4 % (2.0-10.0); % NEUTROPHILS 62.3 % (40.0-80.0); EOSINOPHILE ABSOLUTE 1.1 Th/cmm (0.1-0.4); HEMATOCRIT 21.9 % (41.0-60); LYMPHOCYTE ABSOLUTE 1.4 Th/cmm (1.5-3.0); MEAN CELL VOLUME 94.9 fl (81-100); MEAN CORPUSCULAR HEMOGLOBIN 32.6 pg (27.0-31.0); MEAN CORPUSCULAR HGB CONC 34.4 pg (28.0-36.0); MEAN PLATELET VOLUME 7.3 fl; MONOCYTE ABSOLUTE 0.6 Th/cmm (0.3-1.0); NEUTROPHILE ABSOLUTE 5.3 Th/cmm (1.8-8.0); PLATELET COUNT 249 Th/cmm (150-400); RED BLOOD COUNT 2.31 Mil/cmm (3.80-5.20); RED CELL DISTRIBUTION WIDTH 14.7 % (11.5-20.0); WHITE BLOOD COUNT 8.4 Th/cmm (4.8-10.8)
[2017-10-18 11:26] LABS: HEMOGLOBIN 7.5 gm/dL (12-16)
[2017-10-18 11:32] LABS: ANION GAP 10.9 (7.0-16.0); BUN - UREA NITROGEN 28 mg/dL (7-25); CALCIUM SERUM 9.5 mg/dL (8.6-10.3); CARBON DIOXIDE 18.6 mEq/L (21.0-31.0); CHLORIDE 117 mEq/L (98-107); CREATININE - SERUM 2.8 mg/dL (0.6-1.2); GLUCOSE 95 mg/dL (70-105); POTASSIUM SERUM 4.5 mEq/L (3.5-5.1); SODIUM SERUM 142 mEq/L (136-145)
[2017-10-18] MEDS: Albuterol/Ipratropium Neb 3 ML AERS HHN SCH ×2 (15:43→23:34)
[2017-10-18 15:44] VITALS: BP 138/85
--- NOTE | 2017-10-18 19:31 | Psychosocial Evaluation ---
DATE OF SERVICE: 10/18/2017 IDENTIFYING DATA: The patient is a 81-year-old woman, resident of custodial facility that is the [facility] [place]. Information obtained by directly interviewing the patient as well as reviewing the admission papers and they are reliable. DISPOSITION HOSPITALIZATION: The patient is admitted here on a voluntary basis in view of her acute psychosis and agitation. CHIEF COMPLAINT: "I don't know and I do not need any help." HISTORY OF PRESENT ILLNESS: This is the first psychiatric hospitalization to the geropsychiatric unit for this patient who was seen by me in the medical unit. The patient has been diagnosed to have psychosis, not otherwise specified and dementia associated with the behavior changes. The patient has been also noted to be hallucinating. The patient has been placed on low dose of Ambien because the patient is noted to be too drowsy and the patient's Seroquel has been discontinued and the patient has been placed on the Haldol. The patient at this time is very irritable, angry and trying to get out of the bed. The patient is not able to provide much of information. The patient is acutely confused at this time. Sleep is noted to be poor. Appetite is also noted to be poor; however, the patient is noted to be verbally abusive towards the staff members. PAST PSYCHIATRIC HISTORY: Details are not known. MEDICAL HISTORY: Significant for renal insufficiency, hypertension, anemia, neuropathy and dyslipidemia. SOCIAL HISTORY: The patient is a resident of the custodial facility. SURGICAL HISTORY: No recent surgeries. SUBSTANCE ABUSE HISTORY: None. MENTAL STATUS EXAMINATION: The patient is a 81-year-old woman, thin built, superficially cooperative. Eye contact is poor. Mood is noted to be irritable. Affect is constricted. Insight and judgment at this time are noted to be very much impaired. Impulse control is noted to be poor. Coping skills are also noted to be very poor. The patient has been trying to climb out of the bed. The patient has no insight into her illness. Coping skills at this time are noted to be extremely poor. The patient is currently placed on the Seroquel, which is increased to 25 mg at bedtime. The patient is going to be maintained with the Ativan on a p.r.n. basis. ASSESSMENT: The patient is alert and awake, but she does not have a clue where she is in the hospital and why she is in the hospital. DIAGNOSTIC IMPRESSION: AXIS I: 1. Psychotic disorder, not otherwise specified. 2. Dementia and behavioral change, secondary trait. AXIS II: None. AXIS III: As per Dr. Bernstein. IMMEDIATE TREATMENT PLAN: The patient is going to be observed on inpatient unit, provided with supportive psychotherapy. The patient is going to be closely monitored. Once stabilized, the patient is going to be discharged to [facility] to be followed up on an outpatient basis. [facility]# [id number]
[2017-10-19] MEDS: Albuterol/Ipratropium Neb 3 ML AERS HHN SCH ×3 (06:58→23:00)
--- NOTE | 2017-10-19 08:39 | General Progress Note ---
Subjective - Review of Systems Service Date: 10/19/17 Subjective: Pt seen and eval. In bed. Agitated. Confused. No n,v,d or cp. Labs reviewed. No fevers or chills. No cough. Objective - Results Result Diagrams: 10/18/17 11:10 10/18/17 11:10 Recent Labs: Laboratory Last Values WBC 8.4 Th/cmm (4.8-10.8) 10/18/17 11:10 RBC 2.31 Mil/cmm (3.80-5.20) L 10/18/17 11:10 Hgb 7.5 gm/dL (12-16) L* 10/18/17 11:10 Hct 21.9 % (41.0-60) L 10/18/17 11:10 MCV 94.9 fl (81-100) 10/18/17 11:10 MCH 32.6 pg (27.0-31.0) H 10/18/17 11:10 MCHC Differential 34.4 pg (28.0-36.0) 10/18/17 11:10 RDW 14.7 % (11.5-20.0) 10/18/17 11:10 Plt Count 249 Th/cmm (150-400) 10/18/17 11:10 MPV 7.3 fl 10/18/17 11:10 Neutrophils % 62.3 % (40.0-80.0) 10/18/17 11:10 Lymphocytes % 16.8 % (20.0-50.0) L 10/18/17 11:10 Monocytes % 7.4 % (2.0-10.0) 10/18/17 11:10 Eosinophils % 13.0 % (0.0-5.0) H 10/18/17 11:10 Basophils % 0.5 % (0.0-2.0) 10/18/17 11:10 Sodium 142 mEq/L (136-145) 10/18/17 11:10 Potassium 4.5 mEq/L (3.5-5.1) 10/18/17 11:10 Chloride 117 mEq/L (98-107) H 10/18/17 11:10 Carbon Dioxide 18.6 mEq/L (21.0-31.0) L 10/18/17 11:10 Anion Gap 10.9 (7.0-16.0) 10/18/17 11:10 BUN 28 mg/dL (7-25) H 10/18/17 11:10 Creatinine 2.8 mg/dL (0.6-1.2) H 10/18/17 11:10 Est GFR ( Amer) TNP 10/18/17 11:10 Est GFR (Non-Af Amer) TNP 10/18/17 11:10 BUN/Creatinine Ratio 10.0 10/18/17 11:10 Glucose 95 mg/dL (70-105) 10/18/17 11:10 Calcium 9.5 mg/dL (8.6-10.3) 10/18/17 11:10 - Physical Exam Vitals and I&O: Vital Signs Temp 98.9 F 10/18/17 15:39 Pulse 97 10/19/17 06:58 Resp 20 10/19/17 06:58 BP 165/86 10/18/17 16:56 Pulse Ox 93 10/19/17 06:58 Intake & Output 10/18/17 10/19/17 10/19/17 18:59 06:59 18:59 Intake Total 720 Balance 720 Intake: Oral 720 Other: # Voids 3 # Bowel Movements 0 Weight Source Bedscale Active Medications: Current Medications Acetaminophen (Tylenol) 650 mg PO Q4HR PRN PRN Reason: Mild Pain / Temp above 100 Stop: 12/17/17 08:24 Acetaminophen (Tylenol Extra Strength) 500 mg PO Q4H PRN PRN Reason: MILD PAIN Stop: 12/17/17 09:57 Al Hydrox/Mg Hydrox/Simethicone (Maalox) 30 ml PO Q4HR PRN PRN Reason: GI DISTRESS Stop: 12/17/17 08:24 Albuterol/Ipratropium (Duoneb Neb) 3 ml HHN TIDRT YAMILETH Stop: 12/17/17 14:59 Last Admin: 10/19/17 06:58 Dose: Not Given Amlodipine Besylate (Norvasc) 10 mg PO DAILY [facility] Stop: 12/18/17 08:59 Docusate Sodium (Colace) 100 mg PO BID PRN PRN Reason: Constipation Stop: 12/17/17 09:57 Donepezil HCl (Aricept) 5 mg PO HS [facility] Stop: 12/17/17 20:59 Last Admin: 10/18/17 21:10 Dose: 5 mg Heparin Sodium (Porcine) (Heparin) 5,000 units SUBQ Q12HR [facility] Stop: 12/17/17 20:59 Last Admin: 10/18/17 21:10 Dose: 5,000 units Lorazepam (Ativan) 0.5 mg PO Q4HR PRN; Protocol PRN Reason: Agitation Stop: 11/17/17 08:24 Last Admin: 10/18/17 22:52 Dose: 0.5 mg Magnesium Hydroxide (Milk Of Magnesia) 30 ml PO HS PRN PRN Reason: Constipation Metoprolol Tartrate (Lopressor) 25 mg PO BID Y[facility]ILETH Stop: 12/17/17 16:59 Last Admin: 10/18/17 16:56 Dose: 25 mg Multivitamins/Vitamin C (Theragran) 1 tab PO DAILY [facility] Stop: 12/17/17 08:59 Last Admin: 10/18/17 09:00 Dose: 1 tab Quetiapine Fumarate (Seroquel) 25 mg PO HS YAMILETH PRN Reason: Protocol Stop: 12/17/17 20:59 Last Admin: 10/18/17 21:11 Dose: 25 mg Zolpidem Tartrate (Ambien) 5 mg PO HS PRN PRN Reason: Insomnia Stop: 12/17/17 08:24 General: No acute distress HEENT: Atraumatic, PERRLA Neck: Supple, no JVD Cardiovascular: Regular rate, Normal S1, Normal S2 Lungs: Clear to auscultation Abdomen: Bowel sounds, Soft Assessment/Plan - Assessment Assessment: Anemia of Ch Ill VMN COPD exac - Plan Plan: All labs reviewed. Started FeSo4 daily. Met with RN. Encouraged fluids. Continue O2 and bronchodilators. Pt is comfortable at rest. No sob or pain. Nutritional Asmnt/Malnutr-PDOC - Dietary Evaluation Malnutrition Findings (Please click <Entered> for more info): Nutritional Asmnt/Malnutrition Start: 10/18/17 14: 18 Text: Status: Complete Freq: Document 10/18/17 14:18 KATJA (Rec: 10/18/17 14:27 KATJA [email or web address]) Nutritional Asmnt/Malnutrition Patient General Information Nutritional Screening High Risk Consult Diagnosis psychosis NOS Pertinent Medical Hx/Surgical Hx chronic renal insufficiency, HTN, anemia, alzheimer's dementia, neuropathy, mood disorder, dyslipidemia Subjective Information Consult received for difficulty swallowing, renal failure, hyperlipidemia. pt seen lying in bed at time of visit, very confused. Spoke with RN, RN reported pt consumed 50% of cereal, juice, 2 applesource for breakfast, 0% of lunch becaure pt was fighting. Pt was very weak, which may cause some difficulty of swallowing. Current Diet Order/ Nutrition Support Pureed, renal cardiac Pertinent Medications colace, theragran, seroquel Pertinent Labs 10/18 cl 17, BUN 28, Cr 2.8 Nutritional Hx/Data Height 1.57 m Height (Calculated Centimeters) 157.5 Current Weight (lbs) 65.317 kg Weight (Calculated Kilograms) 65.3 Weight (Calculated Grams) 50507.3 [place] Body Weight 110 Body Mass Index (BMI) 26.3 Weight Status Overweight GI Symptoms GI Symptoms None Last BM 0 Difficult in: None Skin Integrity/Comment: aleshia score 11 pressure area pink to left arm , bruise to right arm Current %PO Poor (25-49%) Estimated Nutritional Goals BEE in Kcals: Using Current wt Calories/Kcals/Kg 25-30 Kcals Calculated 3723-0842 Protein: Using Current wt Protein g/k.2 Protein Calculated 78g (1.2g/kg) Fluid: ml 1625-1950ml (1ml/kcal) Nutritional Problem No current Nutrition Prob Problem altered nutrition related lab values Etiology hx of chronic renal insuff Signs/Symptoms: BUN 28, Cr 2.8 Malnutrition Alert Protein-Calorie Malnutrition N/A Is there a minimum of two criteria No selected? Query Text:Check all the applicable criteria. A minimum of two criteria are recommended for diagnosis of either severe or non-severe malnutrition. Intervention/Recommendation Comments 1. Recommend swallow eval d/t possible swallowing issue. RN notified. 2. Monitor PO intake, wt, labs and skin integrity 3. F/U as high risk in 2-3 days, 10/20-10/21 Expected Outcomes/Goals Expected Outcomes/Goals 1. PO intake to meet at least 75% of nutritional needs. 2. Wt stability, skin to remain intact, labs to approach WNL.
[2017-10-19] MEDS: Multivitamin Tab PO SCH (09:31)
[2017-10-19] MEDS: Ferrous Sulfate 325 MG TAB PO SCH (09:36)
[2017-10-19] MEDS ORDERED: Haloperidol Lactate 5 mg/mL 1mL Vial IM ONE (11:05)
--- NOTE | 2017-10-20 01:17 | Consultation ---
DATE OF CONSULTATION: 10/19/2017 REQUESTING PHYSICIAN: Uyen Rogers MD TYPE OF CONSULTATION: Psychology. HISTORY OF PRESENT ILLNESS: The patient is a 81-year-old female who is a resident of [facility]. The following is by review of the medical record and by patient's self report. The patient is being admitted due to possible psychosis and increased agitation. The patient presents as irritable and unable to provide much information. According to record review, the patient has a history of dementia. The patient seems to be confused and has been generally verbally abusive towards the staff at her facility according to them. The patient denied any suicidal ideation, plan or intention at this time. PAST MEDICAL HISTORY: Please see history and physical by Dr. Bernstein. PAST PSYCHIATRIC HISTORY: Details are unavailable at the time of this clinical interview. SUBSTANCE ABUSE HISTORY: None. CURRENT MEDICATIONS: Please see admission medication reconciliation. PSYCHOSOCIAL HISTORY: The patient is a resident of [facility]. The patient did not answer questions about family history or relationships. She did not answer questions about occupational history or educational history or hoahaoism affiliation. The patient did not answer questions about abuse history or any legal issues. MENTAL STATUS EXAMINATION: The patient appears to be her stated age. The patient appears to be frail. Attitude is superficially cooperative. Eye contact is poor. Mood is irritable. Affect is constricted. Thought process shows to be confused. The patient denied any suicidal ideation, plan or intention. The patient denied any auditory or visual hallucinations. The patient's behavior is poorly redirectable. Staff reports the patient has been trying to climb out of bed and is verbally abusive at times. Impulse control is poor. Concentration is poor. Sensorium is alert and oriented to person only. The patient did not participate in the memory assessment. Memory appears to be impaired for immediate and short-term dimensions. Long-term memory needs further evaluation. The patient is disoriented as to person, place, and date. She is not aware that she is in the hospital. The patient did not participate in the interpretation of proverbs. Insight is impaired. Judgment is impaired. DIAGNOSTIC IMPRESSION: AXIS I: 1. Psychotic disorder, not otherwise specified. 2. Dementia with behavioral disturbance. AXIS II: Deferred. AXIS III: Please see history and physical by Dr. Bernstein. TREATMENT PLAN: The patient has been seen by Dr. Rogers for psychiatric evaluation and for the management of the patient's psychotropic medications. We will provide coping strategies for phase of life issues. We will provide a simple de-escalation skill for the patient to begin to follow through with staff direction and comply with her care and treatment plan here on the unit. We will provide reality orientation, reality differentiation and reality integration. We will continue to provide supportive therapy and motivational enhancement during her hospital stay. Thank you, Dr. Rogers, for this consult and the opportunity to participate with you in this patient's care. JOB# [id number] SHERRY
--- NOTE | 2017-10-20 02:39 | Progress Notes ---
DATE: 10/19/2017 PSYCHIATRIC PROGRESS NOTE SUBJECTIVE: Staff was spoken to. The patient is interviewed. Mood is noted to be irritable. Affect is constricted. Coping skills are noted to be extremely poor. The patient is noted to be very disruptive. The patient has been given the dose of the Haldol to contain her behavior. The patient has been trying to climb out of the bed. The patient has no anxiety otherwise. The patient, at this time, could not be contained. The patient is getting easily agitated. In view of that, therefore it is decided to increase the dose on the Seroquel to 25 mg twice a day and continue the Haldol on a p.r.n. and follow the patient. JOB# [id number]
[2017-10-20] MEDS: Albuterol/Ipratropium Neb 3 ML AERS HHN SCH ×2 (07:30→23:06)
[2017-10-20] MEDS: Ferrous Sulfate 325 MG TAB PO SCH (10:19)
[2017-10-20] MEDS: Multivitamin Tab PO SCH (10:20)
--- NOTE | 2017-10-20 10:45 | General Progress Note ---
Subjective - Review of Systems Service Date: 10/20/17 Events since last encounter: The patient is undergoing psychiatric treatment for her dementia. Her renal functions has been worsening over the last couple of months. Labs were ordered to ensure her hemoglobin and renal function are not worsening. Subjective: The patient is resting comfortably in bed. She does not have any complaints at this time. No s/s pain or distress. Denies chest pain, sob, abd pain, dysuria or falls. Objective - Results Result Diagrams: 10/18/17 11:10 10/18/17 11:10 Recent Labs: Laboratory Last Values WBC 8.4 Th/cmm (4.8-10.8) 10/18/17 11:10 RBC 2.31 Mil/cmm (3.80-5.20) L 10/18/17 11:10 Hgb 7.5 gm/dL (12-16) L* 10/18/17 11:10 Hct 21.9 % (41.0-60) L 10/18/17 11:10 MCV 94.9 fl (81-100) 10/18/17 11:10 MCH 32.6 pg (27.0-31.0) H 10/18/17 11:10 MCHC Differential 34.4 pg (28.0-36.0) 10/18/17 11:10 RDW 14.7 % (11.5-20.0) 10/18/17 11:10 Plt Count 249 Th/cmm (150-400) 10/18/17 11:10 MPV 7.3 fl 10/18/17 11:10 Neutrophils % 62.3 % (40.0-80.0) 10/18/17 11:10 Lymphocytes % 16.8 % (20.0-50.0) L 10/18/17 11:10 Monocytes % 7.4 % (2.0-10.0) 10/18/17 11:10 Eosinophils % 13.0 % (0.0-5.0) H 10/18/17 11:10 Basophils % 0.5 % (0.0-2.0) 10/18/17 11:10 Sodium 142 mEq/L (136-145) 10/18/17 11:10 Potassium 4.5 mEq/L (3.5-5.1) 10/18/17 11:10 Chloride 117 mEq/L (98-107) H 10/18/17 11:10 Carbon Dioxide 18.6 mEq/L (21.0-31.0) L 10/18/17 11:10 Anion Gap 10.9 (7.0-16.0) 10/18/17 11:10 BUN 28 mg/dL (7-25) H 10/18/17 11:10 Creatinine 2.8 mg/dL (0.6-1.2) H 10/18/17 11:10 Est GFR ( Amer) TNP 10/18/17 11:10 Est GFR (Non-Af Amer) TNP 10/18/17 11:10 BUN/Creatinine Ratio 10.0 10/18/17 11:10 Glucose 95 mg/dL (70-105) 10/18/17 11:10 Calcium 9.5 mg/dL (8.6-10.3) 10/18/17 11:10 - Physical Exam Vitals and I&O: Vital Signs Temp 98.9 F 10/18/17 15:39 Pulse 72 10/20/17 10:20 Resp 20 10/20/17 08:00 BP 132/65 10/20/17 10:20 Pulse Ox 93 10/19/17 06:58 Active Medications: Current Medications Acetaminophen (Tylenol) 650 mg PO Q4HR PRN PRN Reason: Mild Pain / Temp above 100 Stop: 12/17/17 08:24 Acetaminophen (Tylenol Extra Strength) 500 mg PO Q4H PRN PRN Reason: MILD PAIN Stop: 12/17/17 09:57 Al Hydrox/Mg Hydrox/Simethicone (Maalox) 30 ml PO Q4HR PRN PRN Reason: GI DISTRESS Stop: 12/17/17 08:24 Albuterol/Ipratropium (Duoneb Neb) 3 ml HHN TIDRT [facility] Stop: 12/17/17 14:59 Last Admin: 10/20/17 07:30 Dose: Not Given Amlodipine Besylate (Norvasc) 10 mg PO DAILY [facility] Stop: 12/18/17 08:59 Last Admin: 10/20/17 10:20 Dose: 10 mg Docusate Sodium (Colace) 100 mg PO BID PRN PRN Reason: Constipation Stop: 12/17/17 09:57 Donepezil HCl (Aricept) 5 mg PO HS [facility] Stop: 12/17/17 20:59 Last Admin: 10/19/17 21:58 Dose: 5 mg Ferrous Sulfate (Iron) 325 mg PO DAILY [facility] Stop: 12/18/17 08:59 Last Admin: 10/20/17 10:19 Dose: 325 mg Heparin Sodium (Porcine) (Heparin) 5,000 units SUBQ Q12HR [facility] Stop: 12/17/17 20:59 Last Admin: 10/20/17 10:21 Dose: Not Given Lorazepam (Ativan) 0.5 mg PO Q4HR PRN; Protocol PRN Reason: Agitation Stop: 11/17/17 08:24 Last Admin: 10/19/17 12:34 Dose: 0.5 mg Magnesium Hydroxide (Milk Of Magnesia) 30 ml PO HS PRN PRN Reason: Constipation Metoprolol Tartrate (Lopressor) 25 mg PO BID [facility] Stop: 12/17/17 16:59 Last Admin: 10/20/17 10:19 Dose: 25 mg Multivitamins/Vitamin C (Theragran) 1 tab PO DAILY [facility] Stop: 12/17/17 08:59 Last Admin: 10/20/17 10:20 Dose: 1 tab Quetiapine Fumarate (Seroquel) 25 mg PO BID YAMILETH PRN Reason: Protocol Stop: 12/19/17 08:59 Last Admin: 10/20/17 10:21 Dose: Not Given Zolpidem Tartrate (Ambien) 5 mg PO HS PRN PRN Reason: Insomnia Stop: 12/17/17 08:24 Last Admin: 10/19/17 21:57 Dose: 5 mg General: No acute distress HEENT: Atraumatic, PERRLA Neck: Supple, no JVD Cardiovascular: Regular rate, Normal S1, Normal S2 Lungs: Clear to auscultation Abdomen: Bowel sounds, Soft Neurological: Other (ms str 4/5) Assessment/Plan - Assessment Assessment: metabolic encephalopathy 2/2 alzheimers dementia exac ckd Anemia of Ch Ill VMN COPD exac muscle weakness unsteady gait - Plan Plan: All labs reviewed. Follow up labs have been ordered to ensure her hgb and renal function are not worsening continue feso4 Met with RN. Encouraged fluids. Continue O2 and bronchodilators. Pt is comfortable at rest. No sob or pain. Nutritional Asmnt/Malnutr-PDOC - Dietary Evaluation Malnutrition Findings (Please click <Entered> for more info): Nutritional Asmnt/Malnutrition Start: 10/18/17 14: 18 Text: Status: Complete Freq: Document 10/18/17 14:18 ARUN (Rec: 10/18/17 14:27 FEDERICA [email or web address]) Nutritional Asmnt/Malnutrition Patient General Information Nutritional Screening High Risk Consult Diagnosis psychosis NOS Pertinent Medical Hx/Surgical Hx chronic renal insufficiency, HTN, anemia, alzheimer's dementia, neuropathy, mood disorder, dyslipidemia Subjective Information Consult received for difficulty swallowing, renal failure, hyperlipidemia. pt seen lying in bed at time of visit, very confused. Spoke with RN, RN reported pt consumed 50% of cereal, juice, 2 applesource for breakfast, 0% of lunch becaure pt was fighting. Pt was very weak, which may cause some difficulty of swallowing. Current Diet Order/ Nutrition Support Pureed, renal cardiac Pertinent Medications colace, theragran, seroquel Pertinent Labs 10/18 cl 17, BUN 28, Cr 2.8 Nutritional Hx/Data Height 1.57 m Height (Calculated Centimeters) 157.5 Current Weight (lbs) 65.317 kg Weight (Calculated Kilograms) 65.3 Weight (Calculated Grams) 90091.3 [place] Body Weight 110 Body Mass Index (BMI) 26.3 Weight Status Overweight GI Symptoms GI Symptoms None Last BM 0 Difficult in: None Skin Integrity/Comment: aleshia score 11 pressure area pink to left arm , bruise to right arm Current %PO Poor (25-49%) Estimated Nutritional Goals BEE in Kcals: Using Current wt Calories/Kcals/Kg 25-30 Kcals Calculated 2429-2323 Protein: Using Current wt Protein g/k.2 Protein Calculated 78g (1.2g/kg) Fluid: ml 1625-1950ml (1ml/kcal) Nutritional Problem No current Nutrition Prob Problem altered nutrition related lab values Etiology hx of chronic renal insuff Signs/Symptoms: BUN 28, Cr 2.8 Malnutrition Alert Protein-Calorie Malnutrition N/A Is there a minimum of two criteria No selected? Query Text:Check all the applicable criteria. A minimum of two criteria are recommended for diagnosis of either severe or non-severe malnutrition. Intervention/Recommendation Comments 1. Recommend swallow eval d/t possible swallowing issue. RN notified. 2. Monitor PO intake, wt, labs and skin integrity 3. F/U as high risk in 2-3 days, 10/20-10/21 Expected Outcomes/Goals Expected Outcomes/Goals 1. PO intake to meet at least 75% of nutritional needs. 2. Wt stability, skin to remain intact, labs to approach WNL.
--- NOTE | 2017-10-21 04:20 | Progress Notes ---
DATE: 10/20/2017 SUBJECTIVE: Staff was spoken to. The patient is interviewed. Mood is noted to be irritable. Affect is constricted. The patient is getting easily irritable and angry. The patient has been disrobing. Coping skills are noted to be very poor. The patient is still confused and is not making much sense. The patient has been placed on Seroquel 25 mg twice a day and the patient is going to be closely monitored. The patient at this time is having difficult time to cope with the stress. JOB# [id number]
[2017-10-21] MEDS: Albuterol/Ipratropium Neb 3 ML AERS HHN SCH ×3 (06:52→23:05)
[2017-10-21 07:28] LABS: % BASOPHILS 1.1 % (0.0-2.0); % EOSINOPHILS 8.3 % (0.0-5.0); % LYMPHOCYTES 18.7 % (20.0-50.0); % MONOCYTES 7.7 % (2.0-10.0); % NEUTROPHILS 64.2 % (40.0-80.0); BASOPHILE ABSOLUTE 0.1 Th/cumm (0-0.2); EOSINOPHILE ABSOLUTE 0.8 Th/cmm (0.1-0.4); HEMATOCRIT 23.6 % (41.0-60); LYMPHOCYTE ABSOLUTE 1.7 Th/cmm (1.5-3.0); MEAN CELL VOLUME 94.9 fl (81-100); MEAN CORPUSCULAR HEMOGLOBIN 31.4 pg (27.0-31.0); MEAN PLATELET VOLUME 7.5 fl; MONOCYTE ABSOLUTE 0.7 Th/cmm (0.3-1.0); NEUTROPHILE ABSOLUTE 5.8 Th/cmm (1.8-8.0); PLATELET COUNT 256 Th/cmm (150-400); RED BLOOD COUNT 2.49 Mil/cmm (3.80-5.20); RED CELL DISTRIBUTION WIDTH 14.2 % (11.5-20.0); WHITE BLOOD COUNT 9.1 Th/cmm (4.8-10.8)
[2017-10-21 07:31] LABS: HEMOGLOBIN 7.8 gm/dL (12-16)
[2017-10-21 07:42] LABS: ANION GAP 10.7 (7.0-16.0); BUN - UREA NITROGEN 33 mg/dL (7-25); CALCIUM SERUM 10.5 mg/dL (8.6-10.3); CARBON DIOXIDE 20.1 mEq/L (21.0-31.0); CHLORIDE 120 mEq/L (98-107); CREATININE - SERUM 3.4 mg/dL (0.6-1.2); GLUCOSE 103 mg/dL (70-105); POTASSIUM SERUM 3.8 mEq/L (3.5-5.1); SODIUM SERUM 147 mEq/L (136-145)
[2017-10-21] MEDS: Ferrous Sulfate 325 MG TAB PO SCH (08:37)
[2017-10-21] MEDS: Multivitamin Tab PO SCH (08:37)
[2017-10-21] MEDS: Sodium Chloride 0.9% 1,000 ML IV SCH (13:43)
--- NOTE | 2017-10-21 16:38 | Progress Notes ---
DATE: 10/21/2017 SUBJECTIVE: Staff was spoken to. The patient is interviewed. Mood is noted to be irritable. Affect is constricted. The patient is still bizarre and has been trying to disrobe. Coping skills at this time are noted to be very poor. The patient has been very deceptive. The patient needs to be redirected. The patient is currently on Seroquel 25 mg twice a day and has been able to tolerate the medications. No side effects to the medications are noted. The patient has been noted to have very low hemoglobin and Dr. Bernstein is going to be informed of the same. ASSESSMENT: The patient is still psychotic. PLAN: To continue the patient with the supportive therapy, encouraged the patient to verbalize the concerns rather than to act out. JOB# [id number]
[2017-10-22] MEDS: Sodium Chloride 0.9% 1,000 ML IV SCH (02:50)
[2017-10-22] MEDS: Albuterol/Ipratropium Neb 3 ML AERS HHN SCH ×3 (06:37→23:26)
[2017-10-22 07:08] LABS: % BASOPHILS 1.2 % (0.0-2.0); % EOSINOPHILS 10.1 % (0.0-5.0); % LYMPHOCYTES 20.7 % (20.0-50.0); % MONOCYTES 8.5 % (2.0-10.0); % NEUTROPHILS 59.5 % (40.0-80.0); BASOPHILE ABSOLUTE 0.1 Th/cumm (0-0.2); HEMATOCRIT 24.3 % (41.0-60); HEMOGLOBIN 8.2 gm/dL (12-16); MEAN CELL VOLUME 94.5 fl (81-100); MEAN CORPUSCULAR HEMOGLOBIN 31.8 pg (27.0-31.0); MEAN CORPUSCULAR HGB CONC 33.6 pg (28.0-36.0); MEAN PLATELET VOLUME 7.6 fl; MONOCYTE ABSOLUTE 0.8 Th/cmm (0.3-1.0); NEUTROPHILE ABSOLUTE 5.6 Th/cmm (1.8-8.0); PLATELET COUNT 268 Th/cmm (150-400); RED BLOOD COUNT 2.58 Mil/cmm (3.80-5.20); RED CELL DISTRIBUTION WIDTH 14.6 % (11.5-20.0); WHITE BLOOD COUNT 9.5 Th/cmm (4.8-10.8)
[2017-10-22 07:31] LABS: ANION GAP 11.5 (7.0-16.0); BUN - UREA NITROGEN 33 mg/dL (7-25); CALCIUM SERUM 10.6 mg/dL (8.6-10.3); CARBON DIOXIDE 19.1 mEq/L (21.0-31.0); CHLORIDE 121 mEq/L (98-107); CREATININE - SERUM 3.3 mg/dL (0.6-1.2); GLUCOSE 94 mg/dL (70-105); POTASSIUM SERUM 3.6 mEq/L (3.5-5.1); SODIUM SERUM 148 mEq/L (136-145)
[2017-10-22] MEDS: Ferrous Sulfate 325 MG TAB PO SCH (09:06)
[2017-10-22] MEDS: Multivitamin Tab PO SCH (09:06)
--- NOTE | 2017-10-22 17:34 | Progress Notes ---
DATE: 10/22/2017 SUBJECTIVE: Staff was spoken to. The patient is interviewed. Mood is noted to be less irritable. The major concern at this time is noted to be low hemoglobin and hematocrit. The patient is being closely monitored and Dr. Bernstein is being informed of the patient's condition. No side effects to the medications are noted. The patient is still confused and demented ____ noted to be poor and hence the patient is being closely monitored. ASSESSMENT: The patient is still paranoid and demented. PLAN: To continue the patient with the supportive therapy and follow up. JOB# [id number]
[2017-10-23 06:43] LABS: EOSINOPHILE ABSOLUTE 0.7 Th/cmm (0.1-0.4); LYMPHOCYTE ABSOLUTE 1.8 Th/cmm (1.5-3.0); MEAN CORPUSCULAR HGB CONC 33.8 pg (28.0-36.0)
[2017-10-23 06:56] LABS: ANION GAP 11.3 (7.0-16.0); BUN - UREA NITROGEN 45 mg/dL (7-25); CALCIUM SERUM 10.6 mg/dL (8.6-10.3); CARBON DIOXIDE 19.3 mEq/L (21.0-31.0); CHLORIDE 122 mEq/L (98-107); CREATININE - SERUM 3.6 mg/dL (0.6-1.2); GLUCOSE 104 mg/dL (70-105); POTASSIUM SERUM 3.6 mEq/L (3.5-5.1); SODIUM SERUM 149 mEq/L (136-145)
[2017-10-23 07:06] LABS: HEMATOCRIT 24.8 % (41.0-60); HEMOGLOBIN 8.4 gm/dL (12-16); MEAN CELL VOLUME 95.2 fl (81-100); MEAN CORPUSCULAR HEMOGLOBIN 32.2 pg (27.0-31.0); WHITE BLOOD COUNT 9.6 Th/cmm (4.8-10.8)
[2017-10-23 07:07] LABS: % BASOPHILS 1.6 % (0.0-2.0); % EOSINOPHILS 7.5 % (0.0-5.0); % LYMPHOCYTES 19.1 % (20.0-50.0); % NEUTROPHILS 62.8 % (40.0-80.0); BASOPHILE ABSOLUTE 0.2 Th/cumm (0-0.2); MEAN PLATELET VOLUME 7.3 fl; MONOCYTE ABSOLUTE 0.9 Th/cmm (0.3-1.0); PLATELET COUNT 309 Th/cmm (150-400); RED CELL DISTRIBUTION WIDTH 14.9 % (11.5-20.0)
[2017-10-23] MEDS: Albuterol/Ipratropium Neb 3 ML AERS HHN SCH (07:44)
[2017-10-23] MEDS: Ferrous Sulfate 325 MG TAB PO SCH (08:20)
[2017-10-23] MEDS: Multivitamin Tab PO SCH (08:21)
--- NOTE | 2017-10-23 09:22 | Discharge Progress Note ---
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 OR KNOWN PHYSIOL COND 10/18/17 ALZHEIMER'S DISEASE, UNSPECIFIED 10/18/17 ACUTE RESPIRATORY FAILURE, UNSP W HYPOXIA OR HYPERCAPNIA 10/18/17 ACUTE KIDNEY FAILURE WITH TUBULAR NECROSIS 10/18/17 DO NOT RESUSCITATE 10/18/17 Discharge Diagnoses: metabolic encephalopathy 2/2 alzheimers dementia exac acute on chronic renal failure Anemia of Ch Ill VMN COPD exac muscle weakness unsteady gait Disposition: TRANSFER TO [facility] Procedures Performed: 10/18/17 HANDHELD NEBULIZER INITIAL [RT] Routine PULSE OXIMETRY CHECK [RT] Routine 10/18/17 05:15 ADMIT ORDERS ONCE 10/18/17 08:07 WOUND CARE [CONS] ONCE 10/18/17 08:20 DIETARY/NUTRITION [CONS] ONCE 10/18/17 08:25 Choking Precaution ONCE Acetaminophen [Tylenol] 650 mg PO Q4HR PRN Al Hyd/Mg Hyd/Simethicone [Maalox] 30 ml PO Q4HR PRN Lorazepam [Ativan] 0.5 mg PO Q4HR PRN Magnesium Hydroxide [Milk of Magnesia] 30 ml PO HS PRN Zolpidem Tartrate [Ambien] 5 mg PO HS PRN 10/18/17 09:00 Multivitamin [Theragran] 1 tab PO DAILY 10/18/17 09:58 Acetaminophen [Tylenol Extra Strength] 500 mg PO Q4H PRN Docusate Sodium [Colace] 100 mg PO BID PRN 10/18/17 10:05 Vital Signs QSHIFT Voluntary Status ONCE 10/18/17 11:10 BMP (BASIC METABOLIC) Routine CBC /W AUTO DIFF Routine 10/18/17 13:50 Swallow [SWALLOW/SPEECH EVALUATION] Routine 10/18/17 15:00 Albuterol/Ipratropium Neb [Duoneb Neb] 3 ml HHN TIDRT 10/18/17 17:00 Metoprolol Tartrate [Lopressor] 25 mg PO BID 10/18/17 21:00 Donepezil Hcl [Aricept] 5 mg PO HS Heparin Sodium [Heparin] 5,000 units SUBQ Q12HR QUEtiapine Fumarate [SEROquel] 12.5 mg PO HS QUEtiapine Fumarate [SEROquel] 25 mg PO HS 10/18/17 Breakfast PUREED [DIET] RENAL [DIET] 10/19/17 PULSE OXIMETRY CHECK [RT] Routine 10/19/17 09:00 Ferrous Sulfate [Iron] 325 mg PO DAILY amLODIPine Besylate [Norvasc] 10 mg PO DAILY 10/19/17 11:05 Haloperidol Lactate [Haldol] 1 mg IM ONCE ONE 10/20/17 09:00 QUEtiapine Fumarate [SEROquel] 25 mg PO BID 10/20/17 18:48 PSYCHOLOGY [CONS] ONCE 10/20/17 20:06 Steri Strip ONCE 10/21/17 PULSE OXIMETRY CHECK [RT] Routine PULSE OXIMETRY CHECK [RT] Routine PULSE OXIMETRY CHECK [RT] Routine 10/21/17 07:00 BMP (BASIC METABOLIC) DAILY CBC /W AUTO DIFF DAILY 10/21/17 10:00 Dry Dressing Daily DAILY 10/21/17 13:30 Sodium Chloride 0.9% [NaCL 0.9%] 1,000 ml IV 75 mls/hr 10/21/17 Dinner PUREED [DIET] 10/22/17 PULSE OXIMETRY CHECK [RT] Routine PULSE OXIMETRY CHECK [RT] Routine 10/22/17 06:16 BMP (BASIC METABOLIC) DAILY CBC /W AUTO DIFF DAILY 10/22/17 07:[address] [facility] DAILY PRN 10/22/17 11:27 UA [URINALYSIS W/REFLEX] Routine 10/23/17 06:18 BMP (BASIC METABOLIC) DAILY CBC /W AUTO DIFF DAILY 10/23/17 09:20 DISCHARGE PATIENT ONCE 10/24/17 06:00 BMP (BASIC METABOLIC) DAILY BMP (BASIC METABOLIC) DAILY CBC /W AUTO DIFF DAILY 10/25/17 06:00 BMP (BASIC METABOLIC) DAILY BMP (BASIC METABOLIC) DAILY CBC /W AUTO DIFF DAILY 10/26/17 06:00 BMP (BASIC METABOLIC) DAILY 10/18/17 11:10 BMP (BASIC METABOLIC) Routine CBC /W AUTO DIFF Routine 10/21/17 07:00 BMP (BASIC METABOLIC) DAILY CBC /W AUTO DIFF DAILY 10/22/17 06:16 BMP (BASIC METABOLIC) DAILY CBC /W AUTO DIFF DAILY 10/22/17 11:27 UA [URINALYSIS W/REFLEX] Routine 10/23/17 06:18 BMP (BASIC METABOLIC) DAILY CBC /W AUTO DIFF DAILY 10/24/17 06:00 BMP (BASIC METABOLIC) DAILY BMP (BASIC METABOLIC) DAILY CBC /W AUTO DIFF DAILY 10/25/17 06:00 BMP (BASIC METABOLIC) DAILY BMP (BASIC METABOLIC) DAILY CBC /W AUTO DIFF DAILY 10/26/17 06:00 BMP (BASIC METABOLIC) DAILY 10/22/17 20:00 (created 10/23/17 00:30) Nurse Notes by Marisol Burciaga Addendum entered by Marisol Burciaga 10/23/17 05:55: End of Shift Note Patient slept for about 8-9 hours this shift. No behavioral issue. No distress noted. All needs attended. Will continue to monitor for safety and behavior till end of shift. Original Note: Addendum entered by Marisol Burciaga 10/23/17 02:45: Mid Shift Note Patient resting at this time, calm and quiet. No distress noted. Will continue to monitor for safety and behavior Q15 mins. Original Note: SHIRLEY NOTE D: Received patient resting in bed, responded to verbal stimuli. Patient is alert, confused, drowsy, calm, and quiet. Patient is guarded but cooperative. Patient is total care, and fall risks. Took her HS medication. No signs or symptoms of distress noted. A: V/S taken and stable. Provide a safe and therapeutic environment. Reorient patient as needed. Encouraged to take foods and forced fluid intake. Scheduled medication given as prescribed. Provide assistance to patient's needs. Monitor Q15 mins for safety and behavior. R: Patient remains confused. Will continue to monitor. Will continue with plan of care. Initialized on 10/23/17 00:30 - END OF NOTE 10/22/17 17:41 Nurse Notes by Riri Bañuelos NOTES D: Received patient resting comfortably in bed. Easily aroused. Patient awake, alert, and oriented to self. Patient confused, calm, quiet, drowsy, but able to wake easily. Reoriented patient to time, place, and unit. Patient able to make some needs known. Denies any pain at this time. A: Encouraged patient to take medication as prescribed. R: Patient remains calm and quiet. Vital signs stable. Educated patient to take medication as prescribed. Patient compliant with medication. Patient dependent with ADL's. All needs met. Orientation to reality provided as needed. Will continue to monitor for safety. Initialized on 10/22/17 17:41 - END OF NOTE 10/22/17 00:06 Nurse Notes by Chary Rosado Addendum entered by Chary Rosado 10/22/17 04:49: Patient has slept about 8 hrs. She has remained calm and quiet. She has not exhibited any signs of distress or pain. Will continue to monitor. Original Note: D:Patient is in bed. She is sleeping and her breathing is even and unlabored. She exhibits no signs of distress. She is easily awakened by name. She is on o2/ 2L per minute via nasal cannula for SOB. She is oriented to self only. She is confused, lethargic and she is labile. Patient is noncompliant with nursing care. She is compliant with medication. She requires assistance with all her adl's. She has weakness, and she is unable to ambulate. Her right hand dressing is intact and no drainage noted. A: She was reoriented as needed. She was encouraged to eat and drink. Will continue to maintain a safe and therapeutic environment. Will continue to monitor q15 mins for safety. R: Patient is resting at this time. Will continue with current plan of care. Initialized on 10/22/17 00:06 - END OF NOTE 10/21/17 11:30 Nurse Notes by Erin Bullock Addendum entered by Erin Bullock 10/21/17 18:59: Updated Dr. Duckworth regarding low grade temp and interventions done, see MAR. Temp has improved and has been updated. Original Note: Addendum entered by Erin Bullock 10/21/17 18:02: Left second message for Kadi (niece) at [phone] to update family of current status. Awaiting call back. Original Note: Addendum entered by Erin Bullock 10/21/17 17:52: Patient currently laying in bed. Encouraged water every hour and patient has better po intake for dinner. No acute distress noted. Will continue to monitor. Original Note: Addendum entered by Erin Bullock 10/21/17 15:57: Patient is currently running a low grade fever, see vitals. Tylenol PRN given, see MAR. Cool wash cloth applied to forehead and ice packs to body. Will reassess in 15 mins. Original Note: Addendum entered by Erin Bullock 10/21/17 15:11: Spoke to Dr. Duckworth early this morning regarding report. Per PM nurse, sadie was upset regarding update on possible G-tube placement. Went through reports to look for update regarding the matter. Called Dr. Duckworth and he stated that no decision was made regarding G-tube placement surgery at this time. Discussed with him possible transfer to med-surg due to poor po intake, but stated he will reassess her and make the call once he rounds. Called her niece, Kadi, at and left a message on her voicemail around 9:00am to update family of current status. Charge nurse, Caitie, was present when Dr. Duckworth made rounds. He had already placed an order for IV fluids for the patient due to deteriorating lab values and overall condition of the patient. Reported to Dr. Duckworth that IV fluids are not able to be given in this unit which is why I suggested a transfer to med-surg in AM. Per Dr. Duckworth, he would prefer to encourage po and fluid intake for today and transfer her to med-surg tomorrow because "if she is transferred on Monday, no one will be able to do anything for her until Monday." When Dr. Zuleta made rounds, he was also concerned regarding her deteriorating lab values and was concerned to increase fluid intake but ensure patient is awake enough due to risk of aspiration. Caitie was also present when Dr. Zuleta made rounds and was aware of all updates. Will continue to monitor patient's condition and increase monitoring for patient's safety. Original Note: Addendum entered by Erin Bullock 10/21/17 14:29: Dr. Zuleta made rounds. Updated on report and intervention per Dr. Duckworth. Alerted to monitor patient's oral and fluid intake but to stop if patient is too drowsy due to aspiration precautions. Will continue to monitor patient's status and continue plan of care. Original Note: Addendum entered by Erin Bullock 10/21/17 13:44: Dr. Duckworth made rounds. Will continue to encourage fluid and oral intake. Will possibly transfer to med-surg tomorrow if intake does not improve after today. Patient is currently sleeping in bed, no acute distress noted. Will continue to monitor and continue plan of care. Original Note: SHIRLEY NOTE: D: Received patient laying in bed. Patient is alert, oriented to self. Patient has moments of confusion, but in a good mood today. Patient has a history of resistiveness to nursing care, poor po food and water intake, on 2L NC with moments where she'll take off the nasal cannula, and incontinence to stool/ urine. Patient denies suicidal/homicidal ideations. Patient denies pain. A: Administered all medications as prescribed, poor po intake with 25% for breakfast at this time. Encouraged patient to verbalize all thoughts and feelings. Maintained a safe and therapeutic environment. Reoriented and redirected patient as needed. Monitor q15min for safety and behavior. R: Patient remains calm in bed, no acute distress noted at this time. Continue to monitor and continue plan of care as directed. Initialized on 10/21/17 11:30 - END OF NOTE 10/20/17 20:20 (created 10/20/17 23:44) Nurse Notes by Suleman Argueta Addendum entered by Suleman Argueta 10/21/17 05:55: patient slept about 9 hrs,quiet and calm,no distress or sign of pain noted, assisted with morning care,will continue to monitor. Original Note: D:Received patient in bed sleeping.breathing even and unlabored,no sign of distress noted,she is easily arousable to name,she is on o2/2L per minute via nasal canula for SOB, Patient oriented to self only,she is confused,lack of goal direction,restless,lethargic and gets easily agitated. Patient is non cooperative with nursing care but compliant with medication.She requires total care assistance and is unable to ambulate due to weakness,right hand dressing intact and no drainage noted. A: Reorient and redirection accordingly. Administer HS medication ,encouraged to eat and drink,Maintain a safe and therapuetic environment.Bed placed in low level and alarm activated. Will continue to monitor .q 15 mins. R: Patient is sleeping at this time.Will continue with current plan of care. Initialized on 10/20/17 23:44 - END OF NOTE 10/20/17 13:51 Nurse Notes by Garry Slade Note D: Arrived and received patient awake in bed resting. Patient is alert and oriented x1 with confusion. Patient is easily irritable, restless, guarded, depressed and uncooperative with medication administration or nursing care. Patient is also verbally and physically abusive to staff when trying to help patient complete ADLs. Patient is aspiration precautions due to having trouble swallowing. Patient is on pureed diet. Patient is DNR. Patient has skin tears in both right and left hands and arms due to constant banging on the side rails. Patient is total care and requires total assistance in completing ADLs. Patient has nasal cannula on o2 2L but patient frequently takes it off. A: Encouraged patient to take scheduled medications and verbalize thoughts and feelings about nursing care. Encouraged patient to eat food during scheduled meals and was successful by patient tolerating food well. Redirected and reoriented patient as needed. Monitored patient Q15 minutes for safety and behavior. Assisted patient in completing ADLs as needed. Called wound care for skin tear on back of the left hand and helped bandage the cut and took pictures of the wound. R: Patient is in bed resting at this time with no distress noted. Will continue with plan of care. Initialized on 10/20/17 13:51 - END OF NOTE 10/19/17 22:57 Nurse Notes by Mallory Baez Addendum entered by Mallory Baez 10/20/17 05:41: End of Shift Note: Patient is able to sleep 6-7 hours,she removes her oxygen at times.No distress noted. Original Note: Addendum entered by Mallory Baez 10/20/17 01:11: Mid Shift Note: Patient is sleeping at this time.No behavior noted. Will continue to monitor till the end of shift. Original Note: SHIRLEY NOTE: D:Received patient in bed sleeping.Patient ia alert to name,oriented x2,Patient is confused,lack of goal direction,paranoid,hostile,labile,easily agitated, combative to staff during care,and bad mounting staff.Patient is non cooperative with nursing care and attempt to strike staff.She requires total care assistance and is unable to ambulate due to weakness,unsteady gait , bedfast.Patient removes oxygen.at time. Bruises noted to both arms. A: Reorient and redirection accordingly. Administer HS medication and PRN Ambien 0.5 mg. by mouth. Maintain a safe and therapuetic environment to sleeping. Monitor q.15 mins. via staff rounds for safety and behavior.Bed placed in low level and alarm activated. Will continue to monitor .q 15 mins. R: Patient is sleeping at this time.Will continue current plan of care. Initialized on 10/19/17 22:57 - END OF NOTE 10/19/17 17:09 Nurse Notes by Garry Slade Note D: Arrived and received patient in bed sleeping. Patient is alert and oriented x1 with noted confusion. Patient is agitated, easily irritable, restless, guarded, depressed and uncooperative with medication administration or nursing care. Patient is also verbally and physically abusive to staff when trying to help patient complete ADLs. Patient is aspiration precautions and is on pureed diet. Patient is DNR. Patient refuses all medication and scheduled meals. Patient has skin tears in both right and left hands and arms. Patient is total care and requires total assistance in completing ADLs. A: Encouraged patient to take scheduled medications and verbalize thoughts and feelings about nursing care. Encouraged patient to eat food during scheduled meals but unsuccessful due to patient refusing and verbally and physically getting aggressive to staff. Redirected and reoriented patient as needed. Monitored patient Q15 minutes for safety and behavior. Assisted patient in completing ADLs as needed. R: Patient is in bed resting at this time with no distress noted. Will continue with plan of care. Initialized on 10/19/17 17:09 - END OF NOTE 10/18/17 22:09 Nurse Notes by Mallory Baez Addendum entered by Mallory Baez 10/19/17 05:27: End of Shift Report: Patient is able to sleep 6 hours, PRN Ativan 0.5 mg PO administered with less agitation and with positive effect.Will continue to monitor till the end of shift. Original Note: Addendum entered by Mallory Baez 10/19/17 01:07: Patient is sleeping at this time. Will continue to monitor Q 15 minutes for safety and behavior. Original Note: Addendum entered by Mallory Baez 10/18/17 23:07: Administer PRN Ativan 0.5 mg for agitation, noted patient placed back to bed , very agitated, bad mounting to staff,striking out to staff when rendering nursing care. Original Note: SHIRLEY NOTE: D: Received patient in bed and trying to get out of bed. Alert to name, acutely confused ,acute psyhosis,and easily agitated, irritable , verbally abusive to staff and striking out to staff when giving nursing care.,Poor eye contact, poor insight,clear speech.depressed mood, Compliant with medication, Total care with ADL's. A:Approach patient in a calm and pleasant manner.Reorient as needed,Assure patient that she is safe and staff is here to help.Administer medication as needed.,encourage to verbalize thoughts and feelings,provide environment conducive to sleeping, Assist with patient needs, monitor Q 15 mins. for safety and behavior. R:Patient up in angella chair,awake, at this time. Will continue current plan of care. Initialized on 10/18/17 22:09 - END OF NOTE 10/18/17 13:43 Nurse Notes by Paty Gomez Addendum entered by aPty Gomez 10/18/17 17:32: Pt was also noted with skin tears on both hand,picture was taken,Pt get easily irritated,verbaly abusive to staff when help his offered,Pt is compliant with medication,frequently remove nasal cannula from nose,unable to follow direction, need constant direction. Original Note: D:Received Pt in room ,appears to be lethargic,Pt has poor appetite,diet consult was ordered and also swallow evaluation,bruise was also noted on both arm,wound care consult was ordered .Pt has poor judgment,gait is unsteady , confused,disoriented ,md bernstein was notified about hgb=7.5 ,no order was given , no acute distress noted,vs is wnl ,total care with adls . On Oxygen 2L via nasal cannula ,respiration unlabored and even A:,encourage to verbalize thoughts and feelings. R:Pt appear to be calm in the room Initialized on 10/18/17 13:43 - END OF NOTE 10/18/17 05:58 Nurse Notes by Mallory Baez Admission Note D:Admitted a 81 year old female ,[place] decent, came from [facility] unit.Admitted to [facility] unit via surgical bed accompanied by two RN's.Patient is from [facility] ,admitted under the care of Dr. Zuleta for pysch and Dr. Bernstein for medical care with admitting diagnosis Depression, Bipolar,Arthritis,cardiac dse.HTN, Renal dse.,Acute kidney failure,Anxiety, weakness both lower extremities,and Hyperlipedimia.,Admitted on voluntary status.Transferred to the unit for increase agitation, and sticking out to staff.No known allergies, ,DNR for medical status.Patient is alert, oriented to self only,clear speech,disorganized thought process with flight of ideas, confused ,poor eye contact,blunted affect,poor insight into current condition, poor judgment, anxious mood,guarded/suspicious.On bedrest due to weak gait.Total care with ADL's.denies of any pain at this time,vital signs stable, no acute distress noted.V/S T=98.6,P=99,R=19,B/P 126/94. On Oxygen 2L via nasal cannula and breathing treatment.No isolation precaution noted.Noted to have bruises on both arms, and upper R arm.Photos taken. A:Approach patient in calm and pleasant manner,orient to unit and room #34 A, encourage to verbalize thoughts and feelings.Inventory personal belongings, checl for contraband,provide patient's rights handbook,explained grievance process,activated bed alarm,provide environment conducive to sleeping,assist with patients needs,monitor q . 15 minutes for safety and behavior. R:Patient with eyes closed in bed ,resting comfortably, remains confused,anxious ,. Will initiate plan of care. Initialized on 10/18/17 05:58 - END OF NOTE Reason for Hospitalization: psychiatric treatment Hospital Course (Significant Findings/Progress/Treatments): A 81 year old female presented to the hospital for inpatient psychiatric treatment. She was admitted to the geropsych [facility] for continued workup. Psych was following the patient and treating her psychiatric issues. During the hospitalization, she had a liable mood with poor po intake. Labs were checked and it revealed worsened renal failure and an elevated sodium. I spoke to the patient niece,Kadi, about the possibility of g tube placement due to poor po intake. Kadi was familiar with g tubes, because her mother is currently in rehabilitation center and receives tube feeds. The patient will be transferred to the acute hospital for further workup and iv hydration Patient Aware of Diagnosis & Prognosis?: Yes Complications: renal failure Allergies/Adverse Reactions: Allergies Allergy/AdvReac Type Severity Reaction Status Date / Time No Known Allergies Allergy Verified 10/13/17 22:15 Condition at Discharge: Guarded Home Medications: Home Medication Medication Instructions Recorded Type Acetaminophen [8 Hour] 650 mg PO Q4H PRN 09/25/17 History Acetaminophen [Acetaminophen Extra 1,000 mg PO Q4H PRN 09/25/17 History Strength] Acetaminophen [Acetaminophen Extra 500 mg PO Q4H PRN 09/25/17 History Strength] Acetaminophen [Tylenol Extra 500 mg PO BID 09/25/17 History Strength] Amlodipine Besylate 10 mg PO DAILY 09/25/17 History Bisacodyl [Dulcolax 10 Mg Supp] 10 mg RC DAILY PRN 09/25/17 History Docusate Sodium [Colace] 100 mg PO DAILY 09/25/17 History Duloxetine HCl [Cymbalta] 30 mg PO DAILY 09/25/17 History Famotidine [Pepcid] 20 mg PO BID 09/25/17 History Ferrous Sulfate [Iron] 1 cap PO BID 09/25/17 History Fleet Enema 135 ml RC DAILY PRN 09/25/17 History Gabapentin 100 mg PO TID 09/25/17 History Magnesium Hydroxide [Milk of 30 ml PO DAILY PRN 09/25/17 History Magnesia] Metoprolol Tartrate [Lopressor] 25 mg PO BID 09/25/17 History Polyethylene Glycol 3350 [Glycolax] 17 gm PO DAILY 09/25/17 History QUEtiapine Fumarate [SEROquel] 12.5 mg PO HS 09/25/17 History Simvastatin [Zocor*] 20 mg PO HS 09/25/17 History Donepezil Hcl [Aricept] 5 mg PO HS 10/13/17 History Acetaminophen [Tylenol] 650 mg PO Q6H PRN tab 10/17/17 Rx Albuterol/Ipratropium Neb [Duoneb 3 ml HHN Q4HRT aers 10/17/17 Rx Neb] DULoxetine DR [Cymbalta] 30 mg PO DAILY ecc 10/17/17 Rx Docusate Sodium [Colace] 100 mg PO BID PRN cap 10/17/17 Rx Donepezil Hcl [Aricept] 5 mg PO HS tab 10/17/17 Rx Gabapentin [Neurontin*] 100 mg PO TID cap 10/17/17 Rx Heparin Sodium [Heparin*] 5,000 units SUBQ Q12HR vial 10/17/17 Rx Mag Sulfate 2gm/50mL Premix 2 gm IV DAILY PRN bag 10/17/17 Rx [Magnesium Sulfate Premix] Magnesium Oxide [Mag-Oxide] 400 mg PO BID PRN tab 10/17/17 Rx Metoprolol Tartrate [Lopressor] 25 mg PO BID tab 10/17/17 Rx Potassium Chloride ER [Klor-Con] 40 meq PO DAILY PRN ter 10/17/17 Rx QUEtiapine Fumarate [SEROquel] 12.5 mg PO HS tab 10/17/17 Rx Simvastatin [Zocor*] 20 mg PO HS tab 10/17/17 Rx Zolpidem Tartrate [Ambien] 10 mg PO HS PRN tab 10/17/17 Rx amLODIPine Besylate [Norvasc*] 10 mg PO DAILY tab 10/17/17 Rx Referrals: Ivanna Bernstein [Primary Care Provider] - Rehab Potential: Fair Copy Given to Patient & Patient's Legal Tankroom Worker: No
--- NOTE | 2017-10-23 09:41 | Progress Notes ---
DATE: 10/21/2017 SUBJECTIVE: Since last encounter, labs were ordered to ensure that the patient's renal function and hemoglobin have remained stable. Her hemoglobin has increased and her renal function has worsened. The creatinine is up to 3.4. IV fluids will be started, because the patient is having a poor appetite and is not consuming enough fluids. MEDICATIONS: Reviewed. PHYSICAL EXAMINATION: VITAL SIGNS: Pulse 78, respiratory rate 14, blood pressure is 155/68, and 97 degrees temperature.GENERAL: NAD, appears fatigued and pale. HEENT: PERRLA, EOMI. NECK: Supple. Trachea midline. CARDIOVASCULAR: Regular rate and rhythm. RESPIRATORY: CTA bilaterally. No wheeze, rale, or rhonchi. ABDOMEN: Soft, nontender, nondistended. Bowel sounds positive in all 4 quadrants. MUSCULOSKELETAL: Muscle strength testing bilateral upper and lower extremities 4/5. SKIN: Warm and dry. No open wounds. LABORATORY DATA: Sodium is 147, creatinine is 3.4, potassium is 3.8. Hemoglobin is 7.8. ASSESSMENT: Metabolic encephalopathy secondary to Alzheimer dementia exacerbation, [id number] renal failure, anemia of chronic illness, vasomotor nephropathy, chronic obstructive pulmonary disease exacerbation, muscle weakness, unsteady gait. PLAN: IV fluids will be started due to the patient's poor appetite and she is not consuming enough water. She appears very fatigued and pale. The swallow evaluation recommended a G-tube due to the poor appetite. The patient has been given a chance to eat and drink on her own; however, it appears that she is unable to do so. The patient is seen by at a local intermediate for approximately 1 year and she has gradually become weaker and less functional secondary to the dementia. A G-tube placement will be considered. I will reach out to the family to discuss that with them. Continue O2, bronchodilators. Continue ongoing psychiatric treatment and monitor for any acute falls. [facility]# [id number]
--- NOTE | 2017-10-23 09:41 | Progress Notes ---
DATE: 10/22/2017 SUBJECTIVE: The IV fluids cannot be given because there is no IV access in [facility]. The patient is more alert this morning and is tolerating oral intake better than yesterday. She is eating her meals and she is drinking. Her creatinine decreased from 3.4 to 3.3. I will discuss with the family the possibility of G-tube placement because her oral intake continues to worsen. Sodium increased again and is up to 148. OBJECTIVE: VITAL SIGNS: 98.6, 77, 168/77, and the respiratory rate is 20. GENERAL: NAD. The patient is more awake and cooperative. NECK: Supple. Trachea midline. CARDIOVASCULAR: Regular rate and rhythm. RESPIRATORY: CTA bilaterally. No wheezes, rales, or rhonchi. ABDOMEN: Soft, nontender, and nondistended. Bowel sounds positive in all 4 quadrants. SKIN: No rashes or open wounds. MUSCULOSKELETAL: Muscle strength testing in bilateral lower extremities 4/5. LABORATORY DATA: Sodium 148, creatinine is 3.3, and potassium is 3.6. Hemoglobin is 8.2 and white blood cell count is 9.5. ASSESSMENT: Metabolic encephalopathy secondary to Alzheimer's dementia exacerbation, [id number] renal failure, anemia of chronic illness, vasomotor nephropathy, chronic obstructive pulmonary disease exacerbation, weakness, and unsteady gait. PLAN: We will discuss with the family the possibility of G-tube placement. We will encourage oral intake of solids and liquids. Her hemoglobin continued to increase, but that was likely secondary due to dehydration. Continue ferrous sulfate. The RN discussed the case. Continue O2, bronchodilators. The patient is resting comfortably. We will continue to monitor for any acute signs or symptoms of increased weakness or lethargy. JOB# [id number]
== END 2017-10-23 11:36 | DRG 885 ==
LOC: GERO2 05:15
PROVIDERS: ADMIT Psychiatry & Neurology Psychiatry; ATTEND Psychiatry & Neurology Psychiatry
DX: F29 Unspecified psychosis not due to a substance or known physiological condition (principal); F02.81 Dementia in other diseases classified elsewhere, unspecified severity, with behavioral disturbance; J44.1 Chronic obstructive pulmonary disease with (acute) exacerbation; N17.0 Acute kidney failure with tubular necrosis; N18.9 Chronic kidney disease, unspecified; J96.00 Acute respiratory failure, unspecified whether with hypoxia or hypercapnia; G93.41 Metabolic encephalopathy; Z66 Do not resuscitate; G30.9 Alzheimer's disease, unspecified; F39 Unspecified mood [affective] disorder; G62.9 Polyneuropathy, unspecified; I12.9 Hypertensive chronic kidney disease with stage 1 through stage 4 chronic kidney disease, or unspecified chronic kidney disease; D63.8 Anemia in other chronic diseases classified elsewhere; R26.9 Unspecified abnormalities of gait and mobility; M62.81 Muscle weakness (generalized)
CPT/HCPCS: 36415-UA; 80048-TC; 85025-TC; 94640; 94760; J1630; J1644; X3401; Z7610

== ENCOUNTER 2017-10-23 11:48 | Inpatient (IN) | payer MEDICARE, OTHER ==
[2017-10-23 12:34] VITALS: BP 131/82
[2017-10-23] MEDS ORDERED: Sodium Chloride 0.9% 1,000 ML IV SCH (13:09)
[2017-10-23] MEDS: Sodium Chloride 0.45% 1,000 ML IV SCH (14:46)
[2017-10-23] MEDS ORDERED: ceFAZolin 1 GM in Sodium Chloride 0.9% 50 ML IV ONE (15:29)
[2017-10-23] MEDS ORDERED: Potassium Chloride 20 mEq ER Tab PO PRN (17:58)
[2017-10-23] MEDS ORDERED: Hydrocodone/APAP 5mg/325mg Tab PO PRN (17:59)
[2017-10-23] MEDS ORDERED: Morphine Sulfate 4 mg/mL 1mL Syr IVP PRN ×2 (18:00)
[2017-10-23] MEDS: Albuterol/Ipratropium Neb 3 ML AERS HHN SCH (22:26)
--- NOTE | 2017-10-23 23:53 | Consultation ---
DATE OF CONSULTATION: 10/23/2017 REASON FOR CONSULTATION: Decreased oral intake, dehydration, malnutrition, dysphagia. HISTORY OF PRESENT ILLNESS: This consult was obtained through the request of Dr. Bernstein for this 81-year-old with history of dementia, admitted from a nursing facility. She is not eating. First of all, she cannot eat everything and then she refuse feeding, not getting her medications, becoming dehydrated. GI consult was called in for further evaluation. Discussed with the patient's niece, who is the primary caregiver, says that her aunt is not eating enough. She forgets to eat and when she chews, she does not swallow. PAST MEDICAL HISTORY: Dementia, hypertension, anemia, neuropathy, psychiatric problem, hyperlipidemia, and renal insufficiency. PAST SURGICAL HISTORY: Not known. SOCIAL HISTORY: Ex-smoker, ex-alcoholic, non-IV drug abuser. FAMILY HISTORY: Noncontributory. ALLERGIES: No known drug allergies. MEDICATIONS: The patient is not on any medications. REVIEW OF SYSTEMS: Unobtainable. PHYSICAL EXAMINATION: GENERAL: The patient is awake, oriented to self only, in no acute distress. VITAL SIGNS: Blood pressure 162/60, heart rate 82, respiratory rate 18, and temperature is 98.2. HEAD AND NECK: Pupils reactive to light. Extraocular muscles could not be tested. Oral cavity, no lesion. NECK: Supple. CHEST: Good air entry. LUNGS: Clear to auscultation. CARDIOVASCULAR: Regular rate and rhythm. No murmur or gallop. ABDOMEN: Soft, positive bowel sounds. EXTREMITIES: Lower extremities, no edema. CENTRAL NERVOUS SYSTEM: Unable to evaluate. LABORATORY DATA: H and H are 8.4 and 24.8 with the platelets of 309. PT is 10.3 seconds, but this was done 10 days ago. Sodium 149, BUN and creatinine are 45 and 3.6. IMPRESSION: A 81-year-old with dementia, now not eating, with malnutrition, dehydration. ASSESSMENT AND PLAN: Dehydration, malnutrition, and dysphagia. Agree with PEG. Discussed with the patient's niece, she wants done as soon as possible. Risks explained to the niece. We will plan a PEG for the morning. We will check PT, PTT, again, since it has been done before 10 days. We will cover with antibiotics and do the PEG in the morning. Other medical problems such as dementia, hypertension, renal insufficiency, etc., as per Dr. Bernstein. Thank you, Dr. Bernstein, for allowing me to participate in the care of this patient. If you have any further questions, please let me know. JOB# [id number]
[2017-10-24] MEDS: Sodium Chloride 0.45% 1,000 ML IV SCH (01:49)
--- NOTE | 2017-10-24 02:08 | Progress Notes ---
DATE: 10/23/2017 PSYCHIATRIC PROGRESS NOTE SUBJECTIVE: Staff was spoken to. The patient is interviewed. Mood is noted to be depressed. Affect is constricted. The patient is still confused. The patient is isolative and withdrawn. The patient has been trying ____. The patient's medical condition has been referred to Dr. Bernstein. The patient is noted to be very anemic and hemoglobin is noted to be very low. The patient's intake is also noted to be poor and hence it is decided to see if the patient can be transferred to the medical floor for further stabilization of her medical condition. JOB# [id number]
[2017-10-24 05:06] LABS: % BASOPHILS 0.8 % (0.0-2.0); % EOSINOPHILS 7.9 % (0.0-5.0); % LYMPHOCYTES 19.1 % (20.0-50.0); % MONOCYTES 9.6 % (2.0-10.0); % NEUTROPHILS 62.6 % (40.0-80.0); BASOPHILE ABSOLUTE 0.1 Th/cumm (0-0.2); EOSINOPHILE ABSOLUTE 0.8 Th/cmm (0.1-0.4); HEMATOCRIT 24.5 % (41.0-60); HEMOGLOBIN 8.2 gm/dL (12-16); LYMPHOCYTE ABSOLUTE 1.8 Th/cmm (1.5-3.0); MEAN CORPUSCULAR HEMOGLOBIN 31.9 pg (27.0-31.0); MEAN CORPUSCULAR HGB CONC 33.6 pg (28.0-36.0); MEAN PLATELET VOLUME 7.5 fl; MONOCYTE ABSOLUTE 0.9 Th/cmm (0.3-1.0); PLATELET COUNT 282 Th/cmm (150-400); RED BLOOD COUNT 2.58 Mil/cmm (3.80-5.20); RED CELL DISTRIBUTION WIDTH 15.3 % (11.5-20.0); WHITE BLOOD COUNT 9.6 Th/cmm (4.8-10.8)
[2017-10-24 05:12] LABS: INR 1.03 (0.5-1.4); PROTHROMBIN TIME (TEST) 10.7 SECONDS (9.5-11.5)
[2017-10-24 05:14] LABS: ANION GAP 10.2 (7.0-16.0); BUN - UREA NITROGEN 44 mg/dL (7-25); CALCIUM SERUM 10.2 mg/dL (8.6-10.3); CARBON DIOXIDE 19.8 mEq/L (21.0-31.0); CHLORIDE 120 mEq/L (98-107); CREATININE - SERUM 3.3 mg/dL (0.6-1.2); GLUCOSE 91 mg/dL (70-105); MAGNESIUM 1.6 mg/dL (1.9-2.7); PHOSPHOROUS 2.5 mg/dL (2.5-5.0); SODIUM SERUM 146 mEq/L (136-145)
[2017-10-24] MEDS ORDERED: Potassium Chloride 20 mEq ER Tab PO PRN (06:52)
[2017-10-24] MEDS ORDERED: Mag Sulfate 2gm/50mL Premix 2 GM/50 ML BAG IV PRN (06:58)
[2017-10-24] MEDS: Albuterol/Ipratropium Neb 3 ML AERS HHN SCH ×3 (06:59→22:03)
[2017-10-24] MEDS ORDERED: D5-0.9%NS 1,000 ML IV SCH (07:00)
--- NOTE | 2017-10-24 07:18 | History & Physical ---
ADMIT DATE: 10/23/2017 CHIEF COMPLAINT: Renal failure, COPD exacerbation and dysphagia and failure to thrive. HISTORY OF PRESENT ILLNESS: The patient is a confused 81-year-old female. She was recently discharged to [facility] for acute psychosis and Alzheimer's exacerbation and overall psychological decline. She was being seen by Dr. Rogers, who is the psychiatrist on the case. She had been refusing to eat. She is also having difficulty swallowing. The family is very concerned. GI has been consulted and the family wants G-tube placement. The patient is too altered and too fatigued to do a proper swallow evaluation. She forgets to eat and does not swallow and it has high risk of aspiration. She has not been eating and has been becoming more lethargic. The family has requested a G-tube placement. PAST MEDICAL HISTORY: Significant for chronic renal insufficiency, hypertension, anemia, Alzheimer's dementia, neuropathy, mood disorder, dyslipidemia, and psychosis. SOCIAL HISTORY: No history of alcohol, tobacco, or drug abuse. She lives at [facility]. SURGICAL HISTORY: No recent major surgeries. FAMILY HISTORY: Noncontributory. ALLERGIES: No known drug allergies. MEDICATIONS: All medication reviewed and reconciled. REVIEW OF SYSTEMS: GENERAL: Positive for recent fatigue and decreased appetite and weight loss. HEENT: No recent head trauma, change in vision, taste, hearing, or smell. Oral: No recent pain or discharge. PSYCHIATRIC: Positive for psychosis and agitated behavior. NECK: No recent tracheal deviation. SKIN: No recent rashes. NEUROLOGIC: She has history of neuropathic pain. ABDOMEN: No recent pain or distention. RESPIRATORY: She has history of COPD and recent acute respiratory failure and possible pneumonia as well. MUSCULOSKELETAL: Positive for unsteady gait and DJD. PHYSICAL EXAMINATION: VITAL SIGNS: Temperature 98.4 degrees, heart rate is 79, respirations are 18, blood pressure 160/80. No pain. GENERAL: No acute distress. She is awake, alert to name only. HEENT: No acute issues. NECK: Trachea is midline. CARDIOVASCULAR: Regular rate and rhythm. SKIN: No rashes. NEUROLOGIC: Stable. MUSCULOSKELETAL: Decreased muscle strength in lower extremities. PSYCHIATRIC: She has labile mood, but no active psychosis right now. RESPIRATORY: Decreased breath sounds bilaterally. LABORATORY DATA AND DIAGNOSTIC STUDIES: Sodium 146, potassium 4.0, chloride 120, bicarb 19.8, BUN 44, creatinine 3.3, glucose 91, magnesium is 1.6. White count is 9.6, hemoglobin is 8.2, MCV is 95, and platelet count is 282,000. Chest x-ray is pending. ASSESSMENT: 1. Dysphagia. 2. Vasomotor nephropathy. 3. Dementia, Alzheimer's type with exacerbation. 4. Chronic obstructive pulmonary disease. 5. Hypertension, out of control. 6. Neuropathic pain. 7. Hypernatremia. 8. Psychosis. 9. Hypomagnesemia. PLAN: The patient is scheduled for G-tube placement today. We will resume her medications soon after that and followup on CBC and BMP. I will give her mag rider today. Blood pressure is slightly elevated. I have held the heparin because of procedure today. We will do SCDs for now, continue IV fluids. Prognosis is guarded. Follow up on chest x-ray. JOB# [id number]
--- NOTE | 2017-10-24 08:00 | Diagnostic Imaging Report ---
CHEST X-RAY: AP view INDICATION: pain COMPARISON: 10/15/2017 FINDINGS: There is elevation of the left hemidiaphragm with left basal density. Chronic lung changes are noted. Cardiomegaly is noted with atherosclerosis. Trace left pleural fluid is suspected. IMPRESSION: Elevation of the left hemidiaphragm with left basal density. Atelectasis versus infiltrate in this region cannot be completely excluded. Cardiomegaly and atherosclerotic vascular disease.
[2017-10-24] MEDS: Ferrous Sulfate 325 MG TAB PO SCH ×2 (08:32→18:08)
[2017-10-24] MEDS: D5-0.45NS 1,000 ML IV SCH (10:07)
[2017-10-24] MEDS ORDERED: VTE Chemical Prophylaxis Screen/Admission MC PRN (10:28)
[2017-10-24] MEDS ORDERED: Metoprolol tartrate 1 mg/ml 5mL Amp IV ONE (10:30)
[2017-10-24] MEDS ORDERED: Lidocaine 2% Gel 5 mL TP ONE (14:00)
[2017-10-24] MEDS ORDERED: Propofol 10 mg/mL 20mL Vial **SURGERY USE ONLY IV ONE (14:00)
--- NOTE | 2017-10-24 15:21 | Operative Report ---
DATE OF SURGERY: 10/24/2017 PROCEDURE: Percutaneous endoscopic gastrostomy tube placement. INDICATION FOR PROCEDURE: Dysphagia. CONSENT: Informed consent was obtained from the patient's niece after planning benefits and risks including infection, bleeding, perforation, . ANESTHESIA USED: Propofol by Dr. Rehman. PREOPERATIVE DIAGNOSIS: Dysphagia. POSTOPERATIVE DIAGNOSIS: Dysphagia, status post G-tube placement. DESCRIPTION OF PROCEDURE: The patient was lying on her back. Head was tilted to the side and flexed forward. Upper Olympus endoscope was introduced into the mouth and advanced to the esophagus, which was intubated under direct visualization. Esophageal mucosa was examined on the way down, it was essentially normal. There was lots of dry secretion in the oropharynx. Scope was advanced to the stomach where the gastric mucosa was examined, which showed mild areas of erythema. Scope was then advanced through the pylorus to the duodenum where the bulb and second part were examined and showed duodenitis. Scope was then withdrawn to the stomach and retroflexed to examine the cardia and fundus showed the hiatal hernia. Scope was then straightened and an area of transillumination was identified. There was good finger indentation. The area was sterilized with Betadine, then anesthetized with 1% lidocaine. Anesthesia needle entered the stomach easily, so skin overlying the area was slightly incised with a scalpel and with a long Angiocath with a trocar introduced the stomach and surrounded by the snare. Trocar was then withdrawn. Wire was introduced into the stomach and grasped by the snare. Scope was then withdrawn with the snare holding the wire. A size 20 G-tube was connected to the wire, then it was pulled out of the patient's abdomen using a standard pull technique. G-tube was secured in place. The patient tolerated the procedure well. There were no immediate postoperative complications. RECOMMENDATIONS: 1. May use G-tube for medications. 2. After 12 hours flush the G-tube with 40 mL of water, then start Nepro at 40 mL an hour. 3. Increase Nepro by 10 mL every day up to 55 mL an hour. 4. Check residuals every 6 hours and hold feeding residual more than 200 mL. 5. Abdominal binder. Thank you, Dr. Bernstein, for allowing me to participate in the care of this patient. If you have any further questions, please let me know. JOB# [id number]
--- NOTE | 2017-10-24 19:57 | Consultation ---
Consult Note - Consult Note Service Date: 10/24/17 Referring Physician: Ivanna Bernstein Consult Note: PHYSICIAN Consultation Note: Date of Admission: 10/23/17 Purpose of Consultation: thaddeus/ckd Chief Complaint: poor po intake History of Present Illness: Patient LUIS DANIEL CHAND was admitted to [facility] with G -TUBE PLACEMENT. She is well known to us and was in fact followed by us recently. She was stabilized and discharged to Geropsych Unit. She was noted to have poor po intake. Family agreed to PEG placement and patient underwent procedure today. her creatinine is 3.3 and sodium 146. We are consulted for assistance with renal mgmt of this patient. 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/17) HYPOMAGNESEMIA (10/23/17) HYPEROSMOLALITY AND HYPERNATREMIA (10/23/17) DEMENTIA IN OTH DISEASES CLASSD [id number] W BEHAVIORAL DISTURB (10/23/17) UNSP PSYCHOSIS NOT DUE TO A SUBSTANCE OR KNOWN PHYSIOL COND (10/23/17) ALZHEIMER'S DISEASE, UNSPECIFIED (10/23/17) ESSENTIAL (PRIMARY) HYPERTENSION (10/23/17) CHRONIC OBSTRUCTIVE PULMONARY DISEASE W (ACUTE) EXACERBATION (10/23/17) ACUTE KIDNEY FAILURE WITH TUBULAR NECROSIS (10/23/17) DYSPHAGIA, UNSPECIFIED (10/23/17) ADULT FAILURE TO THRIVE (10/23/17) DO NOT RESUSCITATE (10/23/17) Allergies Allergy/AdvReac Type Severity Reaction Status Date / Time No Known Allergies Allergy Verified 10/13/17 22:15 Vital Signs Temp 97.0 F 10/24/17 16:00 Pulse 79 10/24/17 18:08 Resp 17 10/24/17 16:00 BP 166/85 10/24/17 18:08 Pulse Ox 99 10/24/17 16:00 Intake & Output 10/24/17 10/24/17 10/25/17 06:59 18:59 06:59 Intake Total 994.5 Balance 994.5 Weight (lbs) 61.462 kg Intake: Intake, IV Amount 994.5 Sodium Chloride 0.45% 1, 994.5 000 ml @ 90 mls/hr IV . Q11H7M [facility] Rx#:[id number] Other: # Voids 2 # Bowel Movements 0 Weight Source Bedscale Laboratory Results - last 24 hr 10/24/17 10/24/17 10/24/17 04:50 04:50 04:50 WBC 9.6 RBC 2.58 L Hgb 8.2 L Hct 24.5 L MCV 95.0 MCH 31.9 H MCHC Differential 33.6 RDW 15.3 Plt Count 282 MPV 7.5 Neutrophils % 62.6 Lymphocytes % 19.1 L Monocytes % 9.6 Eosinophils % 7.9 H Basophils % 0.8 PT 10.7 INR 1.03 Sodium 146 H Potassium 4.0 Chloride 120 H Carbon Dioxide 19.8 L Anion Gap 10.2 BUN 44 H Creatinine 3.3 H Est GFR ( Amer) TNP Est GFR (Non-Af Amer) TNP BUN/Creatinine Ratio 13.3 Glucose 91 Calcium 10.2 Phosphorus 2.5 Magnesium 1.6 L Home Medication Medication Instructions Recorded Type Acetaminophen [Tylenol Extra 500 mg PO Q4H PRN tab 10/23/17 Rx Strength] Acetaminophen [Tylenol] 650 mg PO Q4HR PRN tab 10/23/17 Rx Al Hyd/Mg Hyd/Simethicone [Maalox] 30 ml PO Q4HR PRN udc 10/23/17 Rx Albuterol/Ipratropium Neb [Duoneb 3 ml HHN TIDRT aers 10/23/17 Rx Neb] Docusate Sodium [Colace] 100 mg PO BID PRN cap 10/23/17 Rx Donepezil Hcl [Aricept] 5 mg PO HS tab 10/23/17 Rx Ferrous Sulfate [Iron] 325 mg PO DAILY tab 10/23/17 Rx Heparin Sodium [Heparin*] 5,000 units SUBQ Q12HR vial 10/23/17 Rx Lorazepam [Ativan] 0.5 mg PO Q4HR PRN tab 10/23/17 Rx Magnesium Hydroxide [Milk of 30 ml PO HS PRN udc 10/23/17 Rx Magnesia] Metoprolol Tartrate [Lopressor] 25 mg PO BID tab 10/23/17 Rx Multivitamin [Theragran] 1 tab PO DAILY tab 10/23/17 Rx QUEtiapine Fumarate [SEROquel] 25 mg PO BID tab 10/23/17 Rx Zolpidem Tartrate [Ambien] 5 mg PO HS PRN tab 10/23/17 Rx amLODIPine Besylate [Norvasc*] 10 mg PO DAILY tab 10/23/17 Rx Current Medications Generic Name Dose Route Start Last Admin Trade Name Freq PRN Reason Stop Dose Admin Acetaminophen 650 mg 10/23/17 17:56 Tylenol PO 12/22/17 17:55 Q4HR PRN Mild Pain / Temp above 100 Acetaminophen 650 mg 10/24/17 06:52 Tylenol PO 12/23/17 06:51 Q6H PRN HEADACHE/TEMP ABOVE 100F Acetaminophen/Hydrocodone Bitart 1 tab 10/23/17 17:59 [place] 5mg/325mg PO 12/22/17 17:58 Q6H PRN mod pain Albuterol/Ipratropium 3 ml 10/23/17 23:00 10/24/17 15:58 Duoneb Neb HHN 12/22/17 22:59 3 ml TIDRT YAMILETH Administration Amlodipine Besylate 10 mg 10/24/17 09:00 10/24/17 18:08 Norvasc PO 12/23/17 08:59 10 mg DAILY YAMILETH Administration Docusate Sodium 100 mg 10/23/17 17:56 Colace PO 12/22/17 17:55 BID PRN Constipation Donepezil HCl 5 mg 10/23/17 21:00 10/23/17 21:40 Aricept PO 12/22/17 20:59 5 mg HS YAMILETH Administration Ferrous Sulfate 325 mg 10/24/17 09:00 10/24/17 18:08 Iron PO 12/23/17 08:59 325 mg DAILY YAMILETH Administration Heparin Sodium (Porcine) 5,000 units 10/25/17 09:00 Heparin SUBQ 12/24/17 08:59 Q12HR YAMILETH Magnesium Sulfate 2 gm in 50 mls @ 25 mls/hr 10/24/17 06:58 10/24/17 11:12 Magnesium Sulfate Premix IV 12/23/17 06:57 25 mls/hr DAILY PRN Administration Magnesium level less than 1.6 Dextrose/Sodium Chloride 1,000 mls @ 75 mls/hr 10/24/17 09:45 10/24/17 10:07 D5-0.45ns IV 12/23/17 09:44 75 mls/hr .[id number] YAMILETH Administration Lorazepam 0.5 mg 10/23/17 17:56 04/09/18 21:40 Ativan PO 12/22/17 17:55 0.5 mg Q4HR PRN Administration Agitation Protocol Lorazepam 1 mg 10/24/17 06:52 Ativan IVP 12/23/17 06:51 Q4H PRN Anxiety Protocol Miscellaneous 1 ea 10/24/17 10:28 Vte Chemical Prophylaxis Screen/ Admission 12/23/17 10:27 PRN PRN PROTOCOL Morphine Sulfate 2 mg 10/23/17 18:00 10/24/17 11:26 Morphine IVP 12/22/17 17:59 2 mg Q4H PRN Administration moderate pain Morphine Sulfate 2 mg 10/23/17 18:00 Morphine IVP 12/22/17 17:59 Q4H PRN severe pain\ Ondansetron HCl 4 mg 10/24/17 06:52 Zofran IVP 12/23/17 06:51 Q6H PRN Nausea / Vomiting Potassium Chloride 40 meq 10/23/17 17:58 Klor-Con PO 12/22/17 17:57 DAILY PRN k <3.4 Potassium Chloride 40 meq 10/24/17 06:52 Klor-Con PO 12/23/17 06:51 DAILY PRN k level less than 3.5 Review of Systems: A 12 point ROS was reviewed with the pertinent positive and negatives noted in the HPI. Social History Smoking Status Smoker, status unknown Drug Use No Alcohol Use No Family Medical History Family Medical History Start: 10/23/17 12: 13 Freq: ONCE Status: Active Document 10/23/17 13:00 RK (Rec: 10/23/17 18:02 RK [id number]) Family Medical History Mother History Unknown Yes Physical Exam: General: confused but alert in nad HEENT: head nc/at, sclerae anicteric. op dry Neck: supple Cardio: rrr no murmur Respiratory: cta b Abdominal: soft +gtube nontender Genital/Urinary: not done Extremities: no edema Neurological: confused Assessment: 1. THADDEUS ON CKD 2. HYPERNATREMIA 3. POOR PO INTAKE. NOW WITH G-TUBE STATUS 4. ANEMIA OF CHRONIC DISEASE 5. DEMENTIA 6. HTN W RENAL FAILURE Plan: CONTINUE IVF AVOID NEPHROTOXINS NO INDICATION FOR DIALYSIS AT THIS TIME ENCOURAGE FEEDS AND FREE WATER VIA GTUBE WHEN OK W GI Signed, Katiuska Winkler [id number]
[2017-10-25] MEDS: D5-0.45NS 1,000 ML IV SCH ×2 (01:54→17:17)
[2017-10-25 05:40] LABS: ANION GAP 10.2 (7.0-16.0); BUN - UREA NITROGEN 38 mg/dL (7-25); CALCIUM SERUM 9.9 mg/dL (8.6-10.3); CARBON DIOXIDE 19.9 mEq/L (21.0-31.0); CHLORIDE 119 mEq/L (98-107); CREATININE - SERUM 2.9 mg/dL (0.6-1.2); GLUCOSE 130 mg/dL (70-105); MAGNESIUM 2.2 mg/dL (1.9-2.7); POTASSIUM SERUM 4.1 mEq/L (3.5-5.1); SODIUM SERUM 145 mEq/L (136-145)
[2017-10-25 05:51] LABS: % BASOPHILS 0.2 % (0.0-2.0); % EOSINOPHILS 5.6 % (0.0-5.0); % LYMPHOCYTES 10.3 % (20.0-50.0); % MONOCYTES 6.8 % (2.0-10.0); % NEUTROPHILS 77.1 % (40.0-80.0); EOSINOPHILE ABSOLUTE 0.7 Th/cmm (0.1-0.4); HEMATOCRIT 24.4 % (41.0-60); HEMOGLOBIN 8.3 gm/dL (12-16); LYMPHOCYTE ABSOLUTE 1.3 Th/cmm (1.5-3.0); MEAN CELL VOLUME 94.6 fl (81-100); MEAN CORPUSCULAR HEMOGLOBIN 32.1 pg (27.0-31.0); MEAN CORPUSCULAR HGB CONC 33.9 pg (28.0-36.0); MEAN PLATELET VOLUME 7.3 fl; MONOCYTE ABSOLUTE 0.8 Th/cmm (0.3-1.0); NEUTROPHILE ABSOLUTE 9.5 Th/cmm (1.8-8.0); PLATELET COUNT 280 Th/cmm (150-400); RED BLOOD COUNT 2.58 Mil/cmm (3.80-5.20); RED CELL DISTRIBUTION WIDTH 15.1 % (11.5-20.0)
[2017-10-25 06:04] LABS: WHITE BLOOD COUNT 12.3 Th/cmm (4.8-10.8)
[2017-10-25] MEDS: Albuterol/Ipratropium Neb 3 ML AERS HHN SCH ×3 (07:37→23:09)
[2017-10-25] MEDS: Ferrous Sulfate 325 MG TAB PO SCH (09:43)
--- NOTE | 2017-10-25 10:27 | General Progress Note ---
Subjective - Review of Systems Service Date: 10/25/17 Subjective: Pt seen and eval. POD # 1 for GT. BP improved. CXR shows possible pna. She's status post course of IV abx. No fevers or chills. Has sob with exertion. No falls. No dysuria. Awake. Labile mood. No sz. No pain. No n,v,d or cp. Objective - Results Result Diagrams: 10/25/17 05:40 10/25/17 04:50 Recent Labs: Laboratory Last Values WBC 12.3 Th/cmm (4.8-10.8) H 10/25/17 05:40 RBC 2.58 Mil/cmm (3.80-5.20) L 10/25/17 05:40 Hgb 8.3 gm/dL (12-16) L 10/25/17 05:40 Hct 24.4 % (41.0-60) L 10/25/17 05:40 MCV 94.6 fl (81-100) 10/25/17 05:40 MCH 32.1 pg (27.0-31.0) H 10/25/17 05:40 MCHC Differential 33.9 pg (28.0-36.0) 10/25/17 05:40 RDW 15.1 % (11.5-20.0) 10/25/17 05:40 Plt Count 280 Th/cmm (150-400) 10/25/17 05:40 MPV 7.3 fl 10/25/17 05:40 Neutrophils % 77.1 % (40.0-80.0) 10/25/17 05:40 Lymphocytes % 10.3 % (20.0-50.0) L 10/25/17 05:40 Monocytes % 6.8 % (2.0-10.0) 10/25/17 05:40 Eosinophils % 5.6 % (0.0-5.0) H 10/25/17 05:40 Basophils % 0.2 % (0.0-2.0) 10/25/17 05:40 PT 10.7 SECONDS (9.5-11.5) 10/24/17 04:50 INR 1.03 (0.5-1.4) 10/24/17 04:50 Sodium 145 mEq/L (136-145) 10/25/17 04:50 Potassium 4.1 mEq/L (3.5-5.1) 10/25/17 04:50 Chloride 119 mEq/L (98-107) H 10/25/17 04:50 Carbon Dioxide 19.9 mEq/L (21.0-31.0) L 10/25/17 04:50 Anion Gap 10.2 (7.0-16.0) 10/25/17 04:50 BUN 38 mg/dL (7-25) H 10/25/17 04:50 Creatinine 2.9 mg/dL (0.6-1.2) H 10/25/17 04:50 Est GFR ( Amer) TNP 10/25/17 04:50 Est GFR (Non-Af Amer) TNP 10/25/17 04:50 BUN/Creatinine Ratio 13.1 10/25/17 04:50 Glucose 130 mg/dL (70-105) H 10/25/17 04:50 Calcium 9.9 mg/dL (8.6-10.3) 10/25/17 04:50 Phosphorus 2.5 mg/dL (2.5-5.0) 10/24/17 04:50 Magnesium 2.2 mg/dL (1.9-2.7) 10/25/17 04:50 - Physical Exam Vitals and I&O: Vital Signs Temp 98.2 F 10/25/17 04:00 Pulse 99 10/25/17 09:43 Resp 18 10/25/17 07:40 BP 131/66 10/25/17 09:43 Pulse Ox 99 10/25/17 07:40 Intake & Output 10/24/17 10/25/17 10/25/17 18:59 06:59 18:59 Intake Total 50 1000 Balance 50 1000 Weight (lbs) 61.462 kg Intake: Intake, IV Amount 1000 D5-0.45NS 1,000 ml @ 75 1000 mls/hr IV .[id number] [facility] Rx #:[id number] Oral 50 Other: # Voids 2 # Bowel Movements 2 Weight Source Bedscale Active Medications: Current Medications Acetaminophen (Tylenol) 650 mg PO Q4HR PRN PRN Reason: Mild Pain / Temp above 100 Stop: 12/22/17 17:55 Acetaminophen (Tylenol) 650 mg PO Q6H PRN PRN Reason: HEADACHE/TEMP ABOVE 100F Stop: 12/23/17 06:51 Acetaminophen/Hydrocodone Bitart ([place] 5mg/325mg) 1 tab PO Q6H PRN PRN Reason: mod pain Stop: 12/22/17 17:58 Albuterol/Ipratropium (Duoneb Neb) 3 ml HHN TIDRT [facility] Stop: 12/22/17 22:59 Last Admin: 10/25/17 07:37 Dose: 3 ml Amlodipine Besylate (Norvasc) 10 mg PO DAILY [facility] Stop: 12/23/17 08:59 Last Admin: 10/25/17 09:43 Dose: 10 mg Docusate Sodium (Colace) 100 mg PO BID PRN PRN Reason: Constipation Stop: 12/22/17 17:55 Donepezil HCl (Aricept) 5 mg PO HS [facility] Stop: 12/22/17 20:59 Last Admin: 10/24/17 21:14 Dose: 5 mg Ferrous Sulfate (Iron) 325 mg PO DAILY [facility] Stop: 12/23/17 08:59 Last Admin: 10/25/17 09:43 Dose: 325 mg Heparin Sodium (Porcine) (Heparin) 5,000 units SUBQ Q12HR [facility] Stop: 12/24/17 08:59 Last Admin: 10/25/17 09:43 Dose: 5,000 units Magnesium Sulfate (Magnesium Sulfate Premix) 2 gm in 50 mls @ 25 mls/hr IV DAILY PRN PRN Reason: Magnesium level less than 1.6 Stop: 12/23/17 06:57 Last Admin: 10/24/17 11:12 Dose: 25 mls/hr Dextrose/Sodium Chloride (D5-0.45ns) 1,000 mls @ 75 mls/hr IV .[id number] [facility] Stop: 12/23/17 09:44 Last Admin: 10/25/17 01:54 Dose: 75 mls/hr Lorazepam (Ativan) 0.5 mg PO Q4HR PRN; Protocol PRN Reason: Agitation Stop: 12/22/17 17:55 Last Admin: 10/23/17 21:40 Dose: 0.5 mg Lorazepam (Ativan) 1 mg IVP Q4H PRN; Protocol PRN Reason: Anxiety Stop: 12/23/17 06:51 Miscellaneous (Vte Chemical Prophylaxis Screen/ Admission) 1 ea MC PRN PRN PRN Reason: PROTOCOL Stop: 12/23/17 10:27 Miscellaneous (Clinical Monitoring) 1 ea MC DAILY PRN PRN Reason: RENAL Stop: 12/24/17 08:36 Morphine Sulfate (Morphine) 2 mg IVP Q4H PRN PRN Reason: moderate pain Stop: 12/22/17 17:59 Last Admin: 10/24/17 11:26 Dose: 2 mg Morphine Sulfate (Morphine) 2 mg IVP Q4H PRN PRN Reason: severe pain\ Stop: 12/22/17 17:59 Ondansetron HCl (Zofran) 4 mg IVP Q6H PRN PRN Reason: Nausea / Vomiting Stop: 12/23/17 06:51 Potassium Chloride (Klor-Con) 40 meq PO DAILY PRN PRN Reason: k <3.4 Stop: 12/22/17 17:57 Potassium Chloride (Klor-Con) 40 meq PO DAILY PRN PRN Reason: k level less than 3.5 Stop: 12/23/17 06:51 General: No acute distress HEENT: Atraumatic, PERRLA Neck: Supple, no JVD Cardiovascular: Regular rate, Normal S1, Normal S2 Lungs: Other (decreased BS bl) Abdomen: Bowel sounds, Soft, Other (gt intact) Assessment/Plan - Assessment Assessment: Dysphagia VMN COPD exac Acute resp fail KITTY with exac Psychosis Hypernatremia Hypomagnesemia - Plan Plan: Status post GT placement on 10/24/17. On GT feedings. BP improved. On breathing tx. Continue bronchodilators. Status post mag supplementation. SNF eval. Nutritional Asmnt/Malnutr-PDOC - Dietary Evaluation Malnutrition Findings (Please click <Entered> for more info): Nutritional Asmnt/Malnutrition Start: 10/24/17 16: 01 Text: Status: Complete Freq: Document 10/24/17 16:01 ARUN (Rec: 10/24/17 16:23 [facility] [email or web address]) Nutritional Asmnt/Malnutrition Patient General Information Nutritional Screening High Risk Consult Diagnosis reson for visit: G-tube placement Pertinent Medical Hx/Surgical Hx chronic renal insufficiency, HTN, anemia, alzheimer's dementia, neuropathy, mood disorder, dyslipidemia Subjective Information Consult received for TF. Pt was transfered from [facility] for G- tube placement d/t pt not eating. Pt seen lying in bed at time of visit, taking vitals by RN. Pt is confused but pleasant. Current Diet Order/ Nutrition Support NPO Pertinent Medications D5-0.45ns, colace, iron, Pertinent Labs 10/24 Na 146, K 4.0, Cl 120, BUN 44, Cr 3.3, mg 1.6 Nutritional Hx/Data Height 1.57 m Height (Calculated Centimeters) 157.5 Current Weight (lbs) 61.235 kg Weight (Calculated Kilograms) 61.2 Weight (Calculated Grams) 83139.0 [place] Body Weight 110 Body Mass Index (BMI) 24.7 Weight Status Approriate GI Symptoms GI Symptoms None Last BM none Difficult in: None Skin Integrity/Comment: bruise to right upper and lower hip, left lower abdomen, bilateral upper extremities, scab to right hand, skin tear to left hand Estimated Nutritional Goals BEE in Kcals: Using Current wt Calories/Kcals/Kg 23-27 Kcals Calculated 4534-9950 Protein: Using Current wt Protein g/k.8-1 moniotor renal labs Protein Calculated 50-62 Fluid: ml 1426-1674ml (1ml/kcal) Nutritional Problem 1. Problem Problem inadequate food intake Etiology possible congnition Signs/Symptoms: pt need for TF Malnutrition Alert Protein-Calorie Malnutrition N/A Is there a minimum of two criteria No selected? Query Text:Check all the applicable criteria. A minimum of two criteria are recommended for diagnosis of either severe or non-severe malnutrition. Intervention/Recommendation Comments 1. If TF needed, initiate Fibersource at 20ml/hr continuous, increase 10ml/hr every 12hr to goal rate of 50ml/hr. This will provide 1440kcal, 65g protien and 972ml free water, meeting 100% of nutritional needs. 2. Monitor TF rate and tolerance, wt weekly, skin integrity and labs 3. F/U as high risk in 2 days, 10/26 Expected Outcomes/Goals Expected Outcomes/Goals 1. Pt to meet at least 75% of nutritional needs via nutrition support with tolerance 2. Wt stability, skin to remain intact, labs to approach WNL.
--- NOTE | 2017-10-25 12:35 | General Progress Note ---
Subjective - Review of Systems Service Date: 10/25/17 Subjective: Denies c/o, comfortable. S/p G-tube placement Objective - Results Result Diagrams: 10/25/17 05:40 10/25/17 04:50 Recent Labs: Laboratory Last Values WBC 12.3 Th/cmm (4.8-10.8) H 10/25/17 05:40 RBC 2.58 Mil/cmm (3.80-5.20) L 10/25/17 05:40 Hgb 8.3 gm/dL (12-16) L 10/25/17 05:40 Hct 24.4 % (41.0-60) L 10/25/17 05:40 MCV 94.6 fl (81-100) 10/25/17 05:40 MCH 32.1 pg (27.0-31.0) H 10/25/17 05:40 MCHC Differential 33.9 pg (28.0-36.0) 10/25/17 05:40 RDW 15.1 % (11.5-20.0) 10/25/17 05:40 Plt Count 280 Th/cmm (150-400) 10/25/17 05:40 MPV 7.3 fl 10/25/17 05:40 Neutrophils % 77.1 % (40.0-80.0) 10/25/17 05:40 Lymphocytes % 10.3 % (20.0-50.0) L 10/25/17 05:40 Monocytes % 6.8 % (2.0-10.0) 10/25/17 05:40 Eosinophils % 5.6 % (0.0-5.0) H 10/25/17 05:40 Basophils % 0.2 % (0.0-2.0) 10/25/17 05:40 PT 10.7 SECONDS (9.5-11.5) 10/24/17 04:50 INR 1.03 (0.5-1.4) 10/24/17 04:50 Sodium 145 mEq/L (136-145) 10/25/17 04:50 Potassium 4.1 mEq/L (3.5-5.1) 10/25/17 04:50 Chloride 119 mEq/L (98-107) H 10/25/17 04:50 Carbon Dioxide 19.9 mEq/L (21.0-31.0) L 10/25/17 04:50 Anion Gap 10.2 (7.0-16.0) 10/25/17 04:50 BUN 38 mg/dL (7-25) H 10/25/17 04:50 Creatinine 2.9 mg/dL (0.6-1.2) H 10/25/17 04:50 Est GFR ( Amer) TNP 10/25/17 04:50 Est GFR (Non-Af Amer) TNP 10/25/17 04:50 BUN/Creatinine Ratio 13.1 10/25/17 04:50 Glucose 130 mg/dL (70-105) H 10/25/17 04:50 Calcium 9.9 mg/dL (8.6-10.3) 10/25/17 04:50 Phosphorus 2.5 mg/dL (2.5-5.0) 10/24/17 04:50 Magnesium 2.2 mg/dL (1.9-2.7) 10/25/17 04:50 - Physical Exam Vitals and I&O: Vital Signs Temp 98.5 F 10/25/17 11:39 Pulse 89 10/25/17 11:39 Resp 18 10/25/17 11:39 BP 163/61 10/25/17 11:39 Pulse Ox 99 10/25/17 11:39 Intake & Output 10/24/17 10/25/17 10/25/17 18:59 06:59 18:59 Intake Total 50 1000 Balance 50 1000 Weight (lbs) 61.462 kg Intake: Intake, IV Amount 1000 D5-0.45NS 1,000 ml @ 75 1000 mls/hr IV .[id number] [facility] Rx #:[id number] Oral 50 Other: # Voids 2 # Bowel Movements 2 Weight Source Bedscale Active Medications: Current Medications Acetaminophen (Tylenol) 650 mg PO Q4HR PRN PRN Reason: Mild Pain / Temp above 100 Stop: 12/22/17 17:55 Acetaminophen (Tylenol) 650 mg PO Q6H PRN PRN Reason: HEADACHE/TEMP ABOVE 100F Stop: 12/23/17 06:51 Acetaminophen/Hydrocodone Bitart ([place] 5mg/325mg) 1 tab PO Q6H PRN PRN Reason: mod pain Stop: 12/22/17 17:58 Albuterol/Ipratropium (Duoneb Neb) 3 ml HHN TIDRT [facility] Stop: 12/22/17 22:59 Last Admin: 10/25/17 07:37 Dose: 3 ml Amlodipine Besylate (Norvasc) 10 mg PO DAILY [facility] Stop: 12/23/17 08:59 Last Admin: 10/25/17 09:43 Dose: 10 mg Docusate Sodium (Colace) 100 mg PO BID PRN PRN Reason: Constipation Stop: 12/22/17 17:55 Donepezil HCl (Aricept) 5 mg PO HS [facility] Stop: 12/22/17 20:59 Last Admin: 10/24/17 21:14 Dose: 5 mg Ferrous Sulfate (Iron) 325 mg PO DAILY [facility] Stop: 12/23/17 08:59 Last Admin: 10/25/17 09:43 Dose: 325 mg Heparin Sodium (Porcine) (Heparin) 5,000 units SUBQ Q12HR [facility] Stop: 12/24/17 08:59 Last Admin: 10/25/17 09:43 Dose: 5,000 units Magnesium Sulfate (Magnesium Sulfate Premix) 2 gm in 50 mls @ 25 mls/hr IV DAILY PRN PRN Reason: Magnesium level less than 1.6 Stop: 12/23/17 06:57 Last Admin: 10/24/17 11:12 Dose: 25 mls/hr Dextrose/Sodium Chloride (D5-0.45ns) 1,000 mls @ 75 mls/hr IV .[id number] [facility] Stop: 12/23/17 09:44 Last Admin: 10/25/17 01:54 Dose: 75 mls/hr Lorazepam (Ativan) 0.5 mg PO Q4HR PRN; Protocol PRN Reason: Agitation Stop: 12/22/17 17:55 Last Admin: 10/23/17 21:40 Dose: 0.5 mg Lorazepam (Ativan) 1 mg IVP Q4H PRN; Protocol PRN Reason: Anxiety Stop: 12/23/17 06:51 Miscellaneous (Vte Chemical Prophylaxis Screen/ Admission) 1 ea MC PRN PRN PRN Reason: PROTOCOL Stop: 12/23/17 10:27 Miscellaneous (Clinical Monitoring) 1 ea MC DAILY PRN PRN Reason: RENAL Stop: 12/24/17 08:36 Morphine Sulfate (Morphine) 2 mg IVP Q4H PRN PRN Reason: moderate pain Stop: 12/22/17 17:59 Last Admin: 10/24/17 11:26 Dose: 2 mg Morphine Sulfate (Morphine) 2 mg IVP Q4H PRN PRN Reason: severe pain\ Stop: 12/22/17 17:59 Ondansetron HCl (Zofran) 4 mg IVP Q6H PRN PRN Reason: Nausea / Vomiting Stop: 12/23/17 06:51 Potassium Chloride (Klor-Con) 40 meq PO DAILY PRN PRN Reason: k <3.4 Stop: 12/22/17 17:57 Potassium Chloride (Klor-Con) 40 meq PO DAILY PRN PRN Reason: k level less than 3.5 Stop: 12/23/17 06:51 General: No acute distress HEENT: Atraumatic, PERRLA Neck: Supple, no JVD Cardiovascular: Regular rate, Normal S1, Normal S2 Lungs: Other (decreased BS bl) Abdomen: Bowel sounds, Soft, Other (gt intact) Assessment/Plan - Assessment Assessment: Hypernatremia DIANA/CKD - Plan Plan: remains on D5 1/2 NS. Continue free water via G tube when able Na improving Cr downtrending Nutritional Asmnt/Malnutr-PDOC - Dietary Evaluation Malnutrition Findings (Please click <Entered> for more info): Nutritional Asmnt/Malnutrition Start: 10/24/17 16: 01 Text: Status: Complete Freq: Document 10/24/17 16:01 ARUN (Rec: 10/24/17 16:23 [email or web address]) Nutritional Asmnt/Malnutrition Patient General Information Nutritional Screening High Risk Consult Diagnosis reson for visit: G-tube placement Pertinent Medical Hx/Surgical Hx chronic renal insufficiency, HTN, anemia, alzheimer's dementia, neuropathy, mood disorder, dyslipidemia Subjective Information Consult received for TF. Pt was transfered from [facility] for G- tube placement d/t pt not eating. Pt seen lying in bed at time of visit, taking vitals by RN. Pt is confused but pleasant. Current Diet Order/ Nutrition Support NPO Pertinent Medications D5-0.45ns, colace, iron, Pertinent Labs 10/24 Na 146, K 4.0, Cl 120, BUN 44, Cr 3.3, mg 1.6 Nutritional Hx/Data Height 1.57 m Height (Calculated Centimeters) 157.5 Current Weight (lbs) 61.235 kg Weight (Calculated Kilograms) 61.2 Weight (Calculated Grams) 50264.0 [place] Body Weight 110 Body Mass Index (BMI) 24.7 Weight Status Approriate GI Symptoms GI Symptoms None Last BM none Difficult in: None Skin Integrity/Comment: bruise to right upper and lower hip, left lower abdomen, bilateral upper extremities, scab to right hand, skin tear to left hand Estimated Nutritional Goals BEE in Kcals: Using Current wt Calories/Kcals/Kg 23-27 Kcals Calculated 7321-7584 Protein: Using Current wt Protein g/k.8-1 moniotor renal labs Protein Calculated 50-62 Fluid: ml 1426-1674ml (1ml/kcal) Nutritional Problem 1. Problem Problem inadequate food intake Etiology possible congnition Signs/Symptoms: pt need for TF Malnutrition Alert Protein-Calorie Malnutrition N/A Is there a minimum of two criteria No selected? Query Text:Check all the applicable criteria. A minimum of two criteria are recommended for diagnosis of either severe or non-severe malnutrition. Intervention/Recommendation Comments 1. If TF needed, initiate Fibersource at 20ml/hr continuous, increase 10ml/hr every 12hr to goal rate of 50ml/hr. This will provide 1440kcal, 65g protien and 972ml free water, meeting 100% of nutritional needs. 2. Monitor TF rate and tolerance, wt weekly, skin integrity and labs 3. F/U as high risk in 2 days, 10/26 Expected Outcomes/Goals Expected Outcomes/Goals 1. Pt to meet at least 75% of nutritional needs via nutrition support with tolerance 2. Wt stability, skin to remain intact, labs to approach WNL.
[2017-10-26 05:45] LABS: ANION GAP 9.7 (7.0-16.0); BUN - UREA NITROGEN 42 mg/dL (7-25); CARBON DIOXIDE 19.7 mEq/L (21.0-31.0); CHLORIDE 115 mEq/L (98-107); CREATININE - SERUM 2.6 mg/dL (0.6-1.2); GLUCOSE 120 mg/dL (70-105); POTASSIUM SERUM 3.4 mEq/L (3.5-5.1); SODIUM SERUM 141 mEq/L (136-145)
[2017-10-26] MEDS: Albuterol/Ipratropium Neb 3 ML AERS HHN SCH ×2 (08:14→16:29)
--- NOTE | 2017-10-26 08:29 | General Progress Note ---
Subjective - Review of Systems Service Date: 10/26/17 Subjective: Denies c/o, comfortable. S/p G-tube placement Objective - Results Result Diagrams: 10/25/17 05:40 10/26/17 04:49 Recent Labs: Laboratory Last Values WBC 12.3 Th/cmm (4.8-10.8) H 10/25/17 05:40 RBC 2.58 Mil/cmm (3.80-5.20) L 10/25/17 05:40 Hgb 8.3 gm/dL (12-16) L 10/25/17 05:40 Hct 24.4 % (41.0-60) L 10/25/17 05:40 MCV 94.6 fl (81-100) 10/25/17 05:40 MCH 32.1 pg (27.0-31.0) H 10/25/17 05:40 MCHC Differential 33.9 pg (28.0-36.0) 10/25/17 05:40 RDW 15.1 % (11.5-20.0) 10/25/17 05:40 Plt Count 280 Th/cmm (150-400) 10/25/17 05:40 MPV 7.3 fl 10/25/17 05:40 Neutrophils % 77.1 % (40.0-80.0) 10/25/17 05:40 Lymphocytes % 10.3 % (20.0-50.0) L 10/25/17 05:40 Monocytes % 6.8 % (2.0-10.0) 10/25/17 05:40 Eosinophils % 5.6 % (0.0-5.0) H 10/25/17 05:40 Basophils % 0.2 % (0.0-2.0) 10/25/17 05:40 PT 10.7 SECONDS (9.5-11.5) 10/24/17 04:50 INR 1.03 (0.5-1.4) 10/24/17 04:50 Sodium 141 mEq/L (136-145) 10/26/17 04:49 Potassium 3.4 mEq/L (3.5-5.1) L 10/26/17 04:49 Chloride 115 mEq/L (98-107) H 10/26/17 04:49 Carbon Dioxide 19.7 mEq/L (21.0-31.0) L 10/26/17 04:49 Anion Gap 9.7 (7.0-16.0) 10/26/17 04:49 BUN 42 mg/dL (7-25) H 10/26/17 04:49 Creatinine 2.6 mg/dL (0.6-1.2) H 10/26/17 04:49 Est GFR ( Amer) TNP 10/26/17 04:49 Est GFR (Non-Af Amer) TNP 10/26/17 04:49 BUN/Creatinine Ratio 16.2 10/26/17 04:49 Glucose 120 mg/dL (70-105) H 10/26/17 04:49 Calcium 10.0 mg/dL (8.6-10.3) 10/26/17 04:49 Phosphorus 2.5 mg/dL (2.5-5.0) 10/24/17 04:50 Magnesium 2.2 mg/dL (1.9-2.7) 10/25/17 04:50 - Physical Exam Vitals and I&O: Vital Signs Temp 97.4 F 10/26/17 04:00 Pulse 81 10/26/17 08:16 Resp 18 10/26/17 08:16 BP 156/61 10/26/17 04:00 Pulse Ox 99 10/26/17 08:16 Intake & Output 10/25/17 10/26/17 10/26/17 18:59 06:59 18:59 Intake Total 1480 520 Balance 1480 520 Weight (lbs) 61.235 kg 62.142 kg Intake: Intake, IV Amount 1000 D5-0.45NS 1,000 ml @ 75 1000 mls/hr IV .[id number] [facility] Rx #:[id number] Tube Feeding 480 520 Other: # Voids 4 3 # Bowel Movements 0 Weight Source Bedscale Bedscale Active Medications: Current Medications Acetaminophen (Tylenol) 650 mg PO Q4HR PRN PRN Reason: Mild Pain / Temp above 100 Stop: 12/22/17 17:55 Acetaminophen (Tylenol) 650 mg PO Q6H PRN PRN Reason: HEADACHE/TEMP ABOVE 100F Stop: 12/23/17 06:51 Acetaminophen/Hydrocodone Bitart ([place] 5mg/325mg) 1 tab PO Q6H PRN PRN Reason: mod pain Stop: 12/22/17 17:58 Albuterol/Ipratropium (Duoneb Neb) 3 ml HHN TIDRT [facility] Stop: 12/22/17 22:59 Last Admin: 10/26/17 08:14 Dose: 3 ml Amlodipine Besylate (Norvasc) 10 mg PO DAILY [facility] Stop: 12/23/17 08:59 Last Admin: 10/25/17 09:43 Dose: 10 mg Docusate Sodium (Colace) 100 mg PO BID PRN PRN Reason: Constipation Stop: 12/22/17 17:55 Donepezil HCl (Aricept) 5 mg PO HS [facility] Stop: 12/22/17 20:59 Last Admin: 10/25/17 20:13 Dose: 5 mg Ferrous Sulfate (Iron) 325 mg PO DAILY [facility] Stop: 12/23/17 08:59 Last Admin: 10/25/17 09:43 Dose: 325 mg Heparin Sodium (Porcine) (Heparin) 5,000 units SUBQ Q12HR [facility] Stop: 12/24/17 08:59 Last Admin: 10/25/17 20:13 Dose: 5,000 units Magnesium Sulfate (Magnesium Sulfate Premix) 2 gm in 50 mls @ 25 mls/hr IV DAILY PRN PRN Reason: Magnesium level less than 1.6 Stop: 12/23/17 06:57 Last Admin: 10/24/17 11:12 Dose: 25 mls/hr Dextrose/Sodium Chloride (D5-0.45ns) 1,000 mls @ 75 mls/hr IV .[id number] [facility] Stop: 12/23/17 09:44 Last Admin: 10/25/17 17:17 Dose: 75 mls/hr Lorazepam (Ativan) 0.5 mg PO Q4HR PRN; Protocol PRN Reason: Agitation Stop: 12/22/17 17:55 Last Admin: 10/23/17 21:40 Dose: 0.5 mg Lorazepam (Ativan) 1 mg IVP Q4H PRN; Protocol PRN Reason: Anxiety Stop: 12/23/17 06:51 Miscellaneous (Vte Chemical Prophylaxis Screen/ Admission) 1 ea MC PRN PRN PRN Reason: PROTOCOL Stop: 12/23/17 10:27 Miscellaneous (Clinical Monitoring) 1 ea MC DAILY PRN PRN Reason: RENAL Stop: 12/24/17 08:36 Morphine Sulfate (Morphine) 2 mg IVP Q4H PRN PRN Reason: moderate pain Stop: 12/22/17 17:59 Last Admin: 10/24/17 11:26 Dose: 2 mg Morphine Sulfate (Morphine) 2 mg IVP Q4H PRN PRN Reason: severe pain\ Stop: 12/22/17 17:59 Ondansetron HCl (Zofran) 4 mg IVP Q6H PRN PRN Reason: Nausea / Vomiting Stop: 12/23/17 06:51 Potassium Chloride (Klor-Con) 40 meq PO DAILY PRN PRN Reason: k level less than 3.5 Stop: 12/23/17 06:51 General: No acute distress HEENT: Atraumatic, PERRLA Neck: Supple, no JVD Cardiovascular: Regular rate, Normal S1, Normal S2 Lungs: Other (decreased BS bl) Abdomen: Bowel sounds, Soft, Other (gt intact) Assessment/Plan - Assessment Assessment: Hypernatremia DIANA/CKD, improving - Plan Plan: hypernatremia resolved continue free water for next 24 hours if Cr back into 1s range likely can d/c back to SNF Nutritional Asmnt/Malnutr-PDOC - Dietary Evaluation Malnutrition Findings (Please click <Entered> for more info): Nutritional Asmnt/Malnutrition Start: 10/24/17 16: 01 Text: Status: Complete Freq: Document 10/24/17 16:01 [email or web address] (Rec: 10/24/17 16:23 [email or web address]) Nutritional Asmnt/Malnutrition Patient General Information Nutritional Screening High Risk Consult Diagnosis reson for visit: G-tube placement Pertinent Medical Hx/Surgical Hx chronic renal insufficiency, HTN, anemia, alzheimer's dementia, neuropathy, mood disorder, dyslipidemia Subjective Information Consult received for TF. Pt was transfered from [facility] for G- tube placement d/t pt not eating. Pt seen lying in bed at time of visit, taking vitals by RN. Pt is confused but pleasant. Current Diet Order/ Nutrition Support NPO Pertinent Medications D5-0.45ns, colace, iron, Pertinent Labs 10/24 Na 146, K 4.0, Cl 120, BUN 44, Cr 3.3, mg 1.6 Nutritional Hx/Data Height 1.57 m Height (Calculated Centimeters) 157.5 Current Weight (lbs) 61.235 kg Weight (Calculated Kilograms) 61.2 Weight (Calculated Grams) 36662.0 [facility] Body Weight 110 Body Mass Index (BMI) 24.7 Weight Status Approriate GI Symptoms GI Symptoms None Last BM none Difficult in: None Skin Integrity/Comment: bruise to right upper and lower hip, left lower abdomen, bilateral upper extremities, scab to right hand, skin tear to left hand Estimated Nutritional Goals BEE in Kcals: Using Current wt Calories/Kcals/Kg 23-27 Kcals Calculated 3962-4340 Protein: Using Current wt Protein g/k.8-1 moniotor renal labs Protein Calculated 50-62 Fluid: ml 1426-1674ml (1ml/kcal) Nutritional Problem 1. Problem Problem inadequate food intake Etiology possible congnition Signs/Symptoms: pt need for TF Malnutrition Alert Protein-Calorie Malnutrition N/A Is there a minimum of two criteria No selected? Query Text:Check all the applicable criteria. A minimum of two criteria are recommended for diagnosis of either severe or non-severe malnutrition. Intervention/Recommendation Comments 1. If TF needed, initiate Fibersource at 20ml/hr continuous, increase 10ml/hr every 12hr to goal rate of 50ml/hr. This will provide 1440kcal, 65g protien and 972ml free water, meeting 100% of nutritional needs. 2. Monitor TF rate and tolerance, wt weekly, skin integrity and labs 3. F/U as high risk in 2 days, 10/26 Expected Outcomes/Goals Expected Outcomes/Goals 1. Pt to meet at least 75% of nutritional needs via nutrition support with tolerance 2. Wt stability, skin to remain intact, labs to approach WNL.
[2017-10-26] MEDS: Ferrous Sulfate 325 MG TAB PO SCH (08:32)
--- NOTE | 2017-10-26 09:38 | General Progress Note ---
Subjective - Review of Systems Service Date: 10/26/17 Subjective: Pt seen and eval. POD # 2 for GT. BP improved. CXR shows possible pna. She's status post course of IV abx. No fevers or chills. Has sob with exertion. No falls. No dysuria. Awake. Labile mood. No sz. No pain. No n,v,d or cp. Objective - Results Result Diagrams: 10/25/17 05:40 10/26/17 04:49 Recent Labs: Laboratory Last Values WBC 12.3 Th/cmm (4.8-10.8) H 10/25/17 05:40 RBC 2.58 Mil/cmm (3.80-5.20) L 10/25/17 05:40 Hgb 8.3 gm/dL (12-16) L 10/25/17 05:40 Hct 24.4 % (41.0-60) L 10/25/17 05:40 MCV 94.6 fl (81-100) 10/25/17 05:40 MCH 32.1 pg (27.0-31.0) H 10/25/17 05:40 MCHC Differential 33.9 pg (28.0-36.0) 10/25/17 05:40 RDW 15.1 % (11.5-20.0) 10/25/17 05:40 Plt Count 280 Th/cmm (150-400) 10/25/17 05:40 MPV 7.3 fl 10/25/17 05:40 Neutrophils % 77.1 % (40.0-80.0) 10/25/17 05:40 Lymphocytes % 10.3 % (20.0-50.0) L 10/25/17 05:40 Monocytes % 6.8 % (2.0-10.0) 10/25/17 05:40 Eosinophils % 5.6 % (0.0-5.0) H 10/25/17 05:40 Basophils % 0.2 % (0.0-2.0) 10/25/17 05:40 PT 10.7 SECONDS (9.5-11.5) 10/24/17 04:50 INR 1.03 (0.5-1.4) 10/24/17 04:50 Sodium 141 mEq/L (136-145) 10/26/17 04:49 Potassium 3.4 mEq/L (3.5-5.1) L 10/26/17 04:49 Chloride 115 mEq/L (98-107) H 10/26/17 04:49 Carbon Dioxide 19.7 mEq/L (21.0-31.0) L 10/26/17 04:49 Anion Gap 9.7 (7.0-16.0) 10/26/17 04:49 BUN 42 mg/dL (7-25) H 10/26/17 04:49 Creatinine 2.6 mg/dL (0.6-1.2) H 10/26/17 04:49 Est GFR ( Amer) TNP 10/26/17 04:49 Est GFR (Non-Af Amer) TNP 10/26/17 04:49 BUN/Creatinine Ratio 16.2 10/26/17 04:49 Glucose 120 mg/dL (70-105) H 10/26/17 04:49 Calcium 10.0 mg/dL (8.6-10.3) 10/26/17 04:49 Phosphorus 2.5 mg/dL (2.5-5.0) 10/24/17 04:50 Magnesium 2.2 mg/dL (1.9-2.7) 10/25/17 04:50 - Physical Exam Vitals and I&O: Vital Signs Temp 97.4 F 10/26/17 04:00 Pulse 85 10/26/17 08:39 Resp 18 10/26/17 08:16 BP 149/94 10/26/17 08:39 Pulse Ox 99 10/26/17 08:16 Intake & Output 10/25/17 10/26/17 10/26/17 18:59 06:59 18:59 Intake Total 1480 520 Balance 1480 520 Weight (lbs) 61.235 kg 62.142 kg Intake: Intake, IV Amount 1000 D5-0.45NS 1,000 ml @ 75 1000 mls/hr IV .[id number] YAMILETH Rx #:[id number] Tube Feeding 480 520 Other: # Voids 4 3 # Bowel Movements 0 Weight Source Bedscale Bedscale Active Medications: Current Medications Acetaminophen (Tylenol) 650 mg PO Q4HR PRN PRN Reason: Mild Pain / Temp above 100 Stop: 12/22/17 17:55 Acetaminophen (Tylenol) 650 mg PO Q6H PRN PRN Reason: HEADACHE/TEMP ABOVE 100F Stop: 12/23/17 06:51 Acetaminophen/Hydrocodone Bitart ([place] 5mg/325mg) 1 tab PO Q6H PRN PRN Reason: mod pain Stop: 12/22/17 17:58 Albuterol/Ipratropium (Duoneb Neb) 3 ml HHN TIDRT YAMILETH Stop: 12/22/17 22:59 Last Admin: 10/26/17 08:14 Dose: 3 ml Amlodipine Besylate (Norvasc) 10 mg PO DAILY YAMILETH Stop: 12/23/17 08:59 Last Admin: 10/26/17 08:39 Dose: 10 mg Docusate Sodium (Colace) 100 mg PO BID PRN PRN Reason: Constipation Stop: 12/22/17 17:55 Donepezil HCl (Aricept) 5 mg PO HS [facility] Stop: 12/22/17 20:59 Last Admin: 10/25/17 20:13 Dose: 5 mg Ferrous Sulfate (Iron) 325 mg PO DAILY [facility] Stop: 12/23/17 08:59 Last Admin: 10/26/17 08:32 Dose: 325 mg Heparin Sodium (Porcine) (Heparin) 5,000 units SUBQ Q12HR YAMILETH Stop: 12/24/17 08:59 Last Admin: 10/26/17 08:57 Dose: 5,000 units Magnesium Sulfate (Magnesium Sulfate Premix) 2 gm in 50 mls @ 25 mls/hr IV DAILY PRN PRN Reason: Magnesium level less than 1.6 Stop: 12/23/17 06:57 Last Admin: 10/24/17 11:12 Dose: 25 mls/hr Dextrose/Sodium Chloride (D5-0.45ns) 1,000 mls @ 75 mls/hr IV .[id number] [facility] Stop: 12/23/17 09:44 Last Admin: 10/25/17 17:17 Dose: 75 mls/hr Lorazepam (Ativan) 0.5 mg PO Q4HR PRN; Protocol PRN Reason: Agitation Stop: 12/22/17 17:55 Last Admin: 10/23/17 21:40 Dose: 0.5 mg Lorazepam (Ativan) 1 mg IVP Q4H PRN; Protocol PRN Reason: Anxiety Stop: 12/23/17 06:51 Miscellaneous (Vte Chemical Prophylaxis Screen/ Admission) 1 ea [facility] PRN PRN PRN Reason: PROTOCOL Stop: 12/23/17 10:27 Miscellaneous (Clinical Monitoring) 1 ea [facility] DAILY PRN PRN Reason: RENAL Stop: 12/24/17 08:36 Morphine Sulfate (Morphine) 2 mg IVP Q4H PRN PRN Reason: moderate pain Stop: 12/22/17 17:59 Last Admin: 10/24/17 11:26 Dose: 2 mg Morphine Sulfate (Morphine) 2 mg IVP Q4H PRN PRN Reason: severe pain\ Stop: 12/22/17 17:59 Ondansetron HCl (Zofran) 4 mg IVP Q6H PRN PRN Reason: Nausea / Vomiting Stop: 12/23/17 06:51 Potassium Chloride (Klor-Con) 40 meq PO DAILY PRN PRN Reason: k level less than 3.5 Stop: 12/23/17 06:51 Last Admin: 10/26/17 08:32 Dose: 40 meq General: No acute distress HEENT: Atraumatic, PERRLA Neck: Supple, no JVD Cardiovascular: Regular rate, Normal S1, Normal S2 Lungs: Other (decreased BS bl) Abdomen: Bowel sounds, Soft, Other (gt intact) Assessment/Plan - Assessment Assessment: Dysphagia VMN COPD exac Acute resp fail KITTY with exac Psychosis Hypernatremia Hypomagnesemia - Plan Plan: Status post GT placement on 10/24/17. On GT feedings. BP improved. On breathing tx. Continue bronchodilators. Status post mag supplementation. SNF eval. Pt has been calm and collected. Nutritional Asmnt/Malnutr-PDOC - Dietary Evaluation Malnutrition Findings (Please click <Entered> for more info): Nutritional Asmnt/Malnutrition Start: 10/24/17 16: 01 Text: Status: Complete Freq: Document 10/24/17 16:01 ARUN (Rec: 10/24/17 16:23 ARUN [email or web address]) Nutritional Asmnt/Malnutrition Patient General Information Nutritional Screening High Risk Consult Diagnosis reson for visit: G-tube placement Pertinent Medical Hx/Surgical Hx chronic renal insufficiency, HTN, anemia, alzheimer's dementia, neuropathy, mood disorder, dyslipidemia Subjective Information Consult received for TF. Pt was transfered from [facility] for G- tube placement d/t pt not eating. Pt seen lying in bed at time of visit, taking vitals by RN. Pt is confused but pleasant. Current Diet Order/ Nutrition Support NPO Pertinent Medications D5-0.45ns, colace, iron, Pertinent Labs 10/24 Na 146, K 4.0, Cl 120, BUN 44, Cr 3.3, mg 1.6 Nutritional Hx/Data Height 1.57 m Height (Calculated Centimeters) 157.5 Current Weight (lbs) 61.235 kg Weight (Calculated Kilograms) 61.2 Weight (Calculated Grams) 58868.0 [place] Body Weight 110 Body Mass Index (BMI) 24.7 Weight Status Approriate GI Symptoms GI Symptoms None Last BM none Difficult in: None Skin Integrity/Comment: bruise to right upper and lower hip, left lower abdomen, bilateral upper extremities, scab to right hand, skin tear to left hand Estimated Nutritional Goals BEE in Kcals: Using Current wt Calories/Kcals/Kg 23-27 Kcals Calculated 6641-8619 Protein: Using Current wt Protein g/k.8-1 moniotor renal labs Protein Calculated 50-62 Fluid: ml 1426-1674ml (1ml/kcal) Nutritional Problem 1. Problem Problem inadequate food intake Etiology possible congnition Signs/Symptoms: pt need for TF Malnutrition Alert Protein-Calorie Malnutrition N/A Is there a minimum of two criteria No selected? Query Text:Check all the applicable criteria. A minimum of two criteria are recommended for diagnosis of either severe or non-severe malnutrition. Intervention/Recommendation Comments 1. If TF needed, initiate Fibersource at 20ml/hr continuous, increase 10ml/hr every 12hr to goal rate of 50ml/hr. This will provide 1440kcal, 65g protien and 972ml free water, meeting 100% of nutritional needs. 2. Monitor TF rate and tolerance, wt weekly, skin integrity and labs 3. F/U as high risk in 2 days, 10/26 Expected Outcomes/Goals Expected Outcomes/Goals 1. Pt to meet at least 75% of nutritional needs via nutrition support with tolerance 2. Wt stability, skin to remain intact, labs to approach WNL.
[2017-10-26] MEDS: D5-0.45NS 1,000 ML IV SCH (12:42)
--- NOTE | 2017-10-27 00:51 | Discharge Summary ---
DATE OF DISCHARGE: DATE OF ADMISSION: 10/23/2017 DATE OF DISCHARGE: To [facility] 10/26/2017. CAUSE OF ADMISSION: The patient is a confused 81-year-old female. She was recently discharged to the [facility] for acute psychosis, Alzheimer's exacerbation, and overall psychological decline. She was being seen by Dr. Rogers, who is a psychiatrist on the case. She has been refusing to eat. She was also having difficulty swallowing. The family was very concerned. They asked GI to have a G-tube placed. She was at high risk for aspiration and was not even able to participate in the swallow evaluation to the fullest extent. ADMITTING DIAGNOSES: 1. Dysphagia. 2. Vasomotor nephropathy. 3. Dementia, Alzheimer's type with exacerbation. 4. Chronic obstructive pulmonary disease. 5. Hypertension, out of control. 6. Neuropathic pain. 7. Hypernatremia. 8. Psychosis. 9. Hypomagnesemia. DISCHARGE DIAGNOSES: 1. Dysphagia. 2. Vasomotor nephropathy. 3. Dementia, Alzheimer's type with exacerbation. 4. Chronic obstructive pulmonary disease. 5. Hypertension, out of control. 6. Neuropathic pain. 7. Hypernatremia. 8. Psychosis. 9. Hypomagnesemia. SUMMARY OF HOSPITAL COURSE: The patient had a G-tube placed on 10/24/2017. She tolerated the procedure well, and we resumed her medications after that. She also received a mag rider. Her blood pressure was elevated, but once she was placed back on her medications via G-tube it normalized. She has ____ sitter for at least a couple of days now as she is more calm and collected. She has responded well to her meds. She is stable to be discharged back to the intermediate facility today. Physical exam and labs as charted. PROGNOSIS: Fair. ACTIVITY: As tolerated. DIET: Per G-tube. PROCEDURE: G-tube placement. CONSULTS: Dr. Kenneth Padilla for Nephrology and Dr. Thompson for GI. PROCEDURES: G-tube placement. JOB# [id number]
== END 2017-10-26 18:25 | DRG 177 ==
LOC: MSI 11:48
PROVIDERS: ADMIT General Practice; ATTEND General Practice
PROC: 0DH63UZ Insertion of Feeding Device into Stomach, Percutaneous Approach (ICD-10-PCS; principal; 2017-10-24)
DX: J69.0 Pneumonitis due to inhalation of food and vomit (principal); N17.0 Acute kidney failure with tubular necrosis; J96.00 Acute respiratory failure, unspecified whether with hypoxia or hypercapnia; F02.81 Dementia in other diseases classified elsewhere, unspecified severity, with behavioral disturbance; E87.0 Hyperosmolality and hypernatremia; J44.1 Chronic obstructive pulmonary disease with (acute) exacerbation; E46 Unspecified protein-calorie malnutrition; F23 Brief psychotic disorder; G30.9 Alzheimer's disease, unspecified; R13.10 Dysphagia, unspecified; E83.42 Hypomagnesemia; R62.7 Adult failure to thrive; Z66 Do not resuscitate; I12.9 Hypertensive chronic kidney disease with stage 1 through stage 4 chronic kidney disease, or unspecified chronic kidney disease; E86.0 Dehydration; N18.9 Chronic kidney disease, unspecified; D63.8 Anemia in other chronic diseases classified elsewhere; G62.9 Polyneuropathy, unspecified; Z79.899 Other long term (current) drug therapy; Z79.1 Long term (current) use of non-steroidal anti-inflammatories (NSAID); Z68.25 Body mass index [BMI] 25.0-25.9, adult
CPT/HCPCS: 36415-UA; 71045-TC; 80048-TC; 83735-TC; 84100-TC; 85025-TC; 85610-TC; 90799; 93005; 94640; 94760; J0690; J1644; J2704; J3475; J7030; J7042; Z7506; Z7610